=== PATIENT | female | born 1950 | race Caucasian/White ===

== ENCOUNTER → 2016-12-11 | Outpatient (CLI) | payer MEDICARE, OTHER ==
--- NOTE | 2016-12-12 09:08 | XR ---
EXAMINATION TYPE: XR chest 2V DATE OF EXAM: 12/11/2016 10:27 AM COMPARISON: 02/15/2015 TECHNIQUE: PA and lateral views submitted. HISTORY: Cough and history of smoking FINDINGS: The lungs are clear and there is no pneumothorax, pleural effusion, or focal pneumonia. Hyperinflat ion suggests COPD. Curvature of the spine with multilevel degenerative disc disease. Degenerative laurel nge of the spine noted. IMPRESSION: 1. No acute process. 2. Correlate for COPD.
== END | disposition home or self-care (01) ==
LOC: RADXRYALE 10:11
PROVIDERS: ATTEND Internal Medicine
DX: R05 Cough (principal)
CPT/HCPCS: 71020

== ENCOUNTER 2017-08-09 21:06 | Emergency (ER) | payer MEDICARE, OTHER ==
--- NOTE | 2017-08-09 21:29 | ED ---
Syncope HPI - General Chief Complaint: Syncope Stated Complaint: weakness,fall Time Seen by Provider: 08/09/17 21:28 Source: patient Mode of arrival: ambulatory Limitations: no limitations - History of Present Illness MD Complaint: almost passed out -: hour(s) Prodromal Symptoms: lightheaded Description of Event: incontinence Injuries Sustained Associated with Event: None Current Symptoms: lightheaded Context: getting out of bed (Getting up from the couch) Treatments Prior to Arrival: none - Related Data Previous Rx's Medication Instructions Recorded Levofloxacin [Levaquin] 500 mg PO DAILY #7 tab 08/09/17 Allergies Allergy/AdvReac Type Severity Reaction Status Date / Time Iodinated Contrast- Oral and Allergy Rash/Hives Verified 08/09/17 21:17 IV Dye Penicillins Allergy Rash/Hives Verified 08/09/17 21:17 Review of Systems ROS Statement: Those systems with pertinent positive or pertinent negative responses have been documented in the HPI. ROS Other: All systems not noted in ROS Statement are negative. Constitutional: Reports: weakness. Denies: fever, chills Eyes: Denies: vision change Respiratory: Denies: cough, dyspnea Cardiovascular: Reports: syncope. Denies: chest pain, palpitations, edema ( Near syncope) Gastrointestinal: Denies: abdominal pain, nausea, vomiting Genitourinary: Denies: dysuria, frequency Musculoskeletal: Denies: back pain Skin: Denies: rash, lesions Neurological: Reports: weakness. Denies: headache, numbness, paresthesias Past Medical History Additional Past Medical History / Comment(s): chronic back pain History of Any Multi-Drug Resistant Organisms: None Reported Past Surgical History: Cholecystectomy, Hernia Repair, Orthopedic Surgery Past Psychological History: No Psychological Hx Reported Smoking Status: Current every day smoker Past Alcohol Use History: None Reported Past Drug Use History: Marijuana General Exam Limitations: no limitations General appearance: alert, in no apparent distress Head exam: Present: atraumatic, normocephalic Eye exam: Present: normal appearance, PERRL, EOMI. Absent: scleral icterus, conjunctival injection, nystagmus ENT exam: Present: normal oropharynx Neck exam: Present: normal inspection, full ROM. Absent: tenderness Respiratory exam: Present: wheezes (Trace end expiratory wheeze). Absent: respiratory distress, rales, rhonchi, stridor Cardiovascular Exam: Present: regular rate, normal rhythm, normal heart sounds. Absent: systolic murmur, diastolic murmur, rubs, gallop GI/Abdominal exam: Present: soft. Absent: tenderness, guarding, rebound, mass Back exam: Present: normal inspection. Absent: CVA tenderness (R), CVA tenderness (L) Neurological exam: Present: alert, oriented X3. Absent: motor sensory deficit Skin exam: Present: warm, dry, intact, normal color. Absent: rash Course Vital Signs 08/09/17 08/09/17 21:13 22:59 Temperature 97.5 F L 97.6 F Pulse Rate 74 64 Respiratory 20 18 Rate Blood Pressure 122/58 114/59 O2 Sat by Pulse 96 98 Oximetry EKG Findings - EKG Results: EKG: interpreted by NADIA PEREZ, sinus rhythm (Rate 71 bpm), normal axis, normal QRS, normal ST/T, no acute changes - [place], Pacemaker, Normal: Normal tracing: normal tracing Medical Decision Making - Lab Data Result diagrams: 08/09/17 21:50 08/09/17 21:50 Lab Results 08/09/17 08/09/17 08/09/17 Range/Units 21:50 21:50 21:50 WBC 9.2 (3.8-10.6) k/uL RBC 3.68 L (3.80-5.40) m/uL Hgb 11.9 (11.4-16.0) gm/dL Hct 36.6 (34.0-46.0) % MCV 99.4 (80.0-100.0) fL MCH 32.3 (25.0-35.0) pg MCHC 32.4 (31.0-37.0) g/dL RDW 14.1 (11.5-15.5) % Plt Count 195 (150-450) k/uL Neutrophils % 89 % Lymphocytes % 6 % Monocytes % 5 % Eosinophils % 0 % Basophils % 0 % Neutrophils # 8.1 H (1.3-7.7) k/uL Lymphocytes # 0.5 L (1.0-4.8) k/uL Monocytes # 0.4 (0-1.0) k/uL Eosinophils # 0.0 (0-0.7) k/uL Basophils # 0.0 (0-0.2) k/uL PT (9.0-12.0) sec INR (<1.2) APTT (22.0-30.0) sec Sodium 139 (137-145) mmol/L Potassium 4.2 (3.5-5.1) mmol/L Chloride 107 (98-107) mmol/L Carbon Dioxide 22 (22-30) mmol/L Anion Gap 10 mmol/L BUN 24 H (7-17) mg/dL Creatinine 1.50 H (0.52-1.04) mg/dL Est GFR (MDRD) Af Amer 42 (>60 ml/min/1.73 sqM) Est GFR (MDRD) Non-Af 34 (>60 ml/min/1.73 sqM) Glucose 129 H (74-99) mg/dL Calcium 9.3 (8.4-10.2) mg/dL Total Bilirubin 0.4 (0.2-1.3) mg/dL AST 22 (14-36) U/L ALT 28 (9-52) U/L Alkaline Phosphatase 68 (38-126) U/L Total Creatine Kinase 56 (30-135) U/L CK-MB (CK-2) 1.4 (0.0-2.4) ng/mL CK-MB (CK-2) Rel Index 2.5 Troponin I <0.012 (0.000-0.034) ng/mL Total Protein 5.6 L (6.3-8.2) g/dL Albumin 3.5 (3.5-5.0) g/dL Urine Color Urine Appearance (Clear) Urine pH (5.0-8.0) Ur Specific [place] (1.001-1.035) Urine Protein (Negative) Urine Glucose (UA) (Negative) Urine Ketones (Negative) Urine Blood (Negative) Urine Nitrite (Negative) Urine Bilirubin (Negative) Urine Urobilinogen (<2.0) mg/dL Ur Leukocyte Esterase (Negative) Urine RBC (0-5) /hpf Urine WBC (0-5) /hpf Ur Squamous Epith Cells (0-4) /hpf Amorphous Sediment (None) /hpf Urine Bacteria (None) /hpf Hyaline Casts (0-2) /lpf Urine Mucus (None) /hpf 08/09/17 08/09/17 Range/Units 21:50 22:00 WBC (3.8-10.6) k/uL RBC (3.80-5.40) m/uL Hgb (11.4-16.0) gm/dL Hct (34.0-46.0) % MCV (80.0-100.0) fL MCH (25.0-35.0) pg MCHC (31.0-37.0) g/dL RDW (11.5-15.5) % Plt Count (150-450) k/uL Neutrophils % % Lymphocytes % % Monocytes % % Eosinophils % % Basophils % % Neutrophils # (1.3-7.7) k/uL Lymphocytes # (1.0-4.8) k/uL Monocytes # (0-1.0) k/uL Eosinophils # (0-0.7) k/uL Basophils # (0-0.2) k/uL PT 10.2 (9.0-12.0) sec INR 1.0 (<1.2) APTT 19.8 L (22.0-30.0) sec Sodium (137-145) mmol/L Potassium (3.5-5.1) mmol/L Chloride (98-107) mmol/L Carbon Dioxide (22-30) mmol/L Anion Gap mmol/L BUN (7-17) mg/dL Creatinine (0.52-1.04) mg/dL Est GFR (MDRD) Af Amer (>60 ml/min/1.73 sqM) Est GFR (MDRD) Non-Af (>60 ml/min/1.73 sqM) Glucose (74-99) mg/dL Calcium (8.4-10.2) mg/dL Total Bilirubin (0.2-1.3) mg/dL AST (14-36) U/L ALT (9-52) U/L Alkaline Phosphatase (38-126) U/L Total Creatine Kinase (30-135) U/L CK-MB (CK-2) (0.0-2.4) ng/mL CK-MB (CK-2) Rel Index Troponin I (0.000-0.034) ng/mL Total Protein (6.3-8.2) g/dL Albumin (3.5-5.0) g/dL Urine Color Yellow Urine Appearance Cloudy H (Clear) Urine pH 5.5 (5.0-8.0) Ur Specific [place] 1.024 (1.001-1.035) Urine Protein 1+ H (Negative) Urine Glucose (UA) Negative (Negative) Urine Ketones Trace H (Negative) Urine Blood Negative (Negative) Urine Nitrite Negative (Negative) Urine Bilirubin 3+ H (Negative) Urine Urobilinogen 4.0 (<2.0) mg/dL Ur Leukocyte Esterase Large H (Negative) Urine RBC 1 (0-5) /hpf Urine WBC 64 H (0-5) /hpf Ur Squamous Epith Cells 11 H (0-4) /hpf Amorphous Sediment Rare H (None) /hpf Urine Bacteria Occasional H (None) /hpf Hyaline Casts 263 H (0-2) /lpf Urine Mucus Few H (None) /hpf Disposition Clinical Impression: Urinary tract infection, Near syncope Disposition: HOME SELF-CARE Condition: Good Instructions: Urinary Tract Infection in Women (ED) Prescriptions: Levofloxacin [Levaquin] 500 mg PO DAILY #7 tab Referrals: Ramila Farr MD [Primary Care Provider] - 1-2 days
[2017-08-09 22:06] LABS: Basophils % (A) 0 %; CH 32.7; CHCM 33.1; Eosinophils % (A) 0 %; HCT 36.6 % (34.0-46.0); HGB 11.9 gm/dL (11.4-16.0); Luc # (Auto) 0.05; Luc % (Auto) 1; Lymphocytes # (A) 0.5 k/uL (1.0-4.8); Lymphocytes % (A) 6 %; MCH 32.3 pg (25.0-35.0); MCHC 32.4 g/dL (31.0-37.0); MCV 99.4 fL (80.0-100.0); Mean Platelet Volume 7.7; Monocytes # (A) 0.4 k/uL (0-1.0); Monocytes % (A) 5 %; Neutrophils # (A) 8.1 k/uL (1.3-7.7); Neutrophils % (A) 89 %; RBC 3.68 m/uL (3.80-5.40); RDW 14.1 % (11.5-15.5); WBC 9.2 k/uL (3.8-10.6); WBC (Perox) 9.82
--- NOTE | 2017-08-09 22:06 | XR ---
EXAMINATION TYPE: XR chest 1V portable DATE OF EXAM: 08/09/2017 COMPARISON: December 11, 2016 HISTORY: Syncope with low back pain TECHNIQUE: Single frontal view of the chest is obtained. FINDINGS: Hyperinflation is noted. There is no pneumothorax or pleural effusion. The cardiac silhoue tte is stable. IMPRESSION: No change in appearance of the chest.
[2017-08-09 22:16] LABS: Calcium 9.3 mg/dL (8.4-10.2); Potassium 4.2 mmol/L (3.5-5.1); Total Bilirubin 0.4 mg/dL (0.2-1.3); Total Protein 5.6 g/dL (6.3-8.2)
[2017-08-09 22:21] LABS: Prothrombin Time 10.2 sec (9.0-12.0)
[2017-08-09 22:24] LABS: Amorphous Sediment,Urine Rare /hpf; Appearance,Urine Cloudy (Clear); Bacteria,Urine Occasional /hpf; Bilirubin,Urine 3+ (Negative); Glucose,Urine (UA) Negative (Negative); Ketones,Urine Trace (Negative); Leukocyte Esterase,Urine Large (Negative); Mucus,Urine Few /hpf; Nitrite,Urine Negative (Negative); PH, Urine 5.5 (5.0-8.0); Particle Count 10982; Protein,Urine 1+ (Negative); RBC,Urine 1 /hpf (0-5); Specific Gravity,Urine 1.024 (1.001-1.035); Squamous Epithelial Cell,Urine 11 /hpf (0-4); UA Billing (MACRO vs. MICRO) MICRO; WBC,Urine 64 /hpf (0-5)
[2017-08-09 22:27] LABS: Creatine Kinase 56 U/L (30-135)
[2017-08-09 22:34] LABS: Partial Thromboplastin Time 19.8 sec (22.0-30.0)
[2017-08-09 22:40] LABS: Creatine Kinase MB 1.4 ng/mL (0.0-2.4); Troponin I <0.012 ng/mL (0.000-0.034)
[2017-08-09] MEDS ORDERED: LEVOFLOXACIN 750 MG TAB PO STA (23:15)
--- NOTE | 2017-08-09 23:26 | CT ---
EXAM: CT Head Without Intravenous Contrast CLINICAL HISTORY: Status post fall TECHNIQUE: Axial computed tomography images of the head/brain without intravenous contrast. CTDI is 57.40 mGy and DLP is 989.50 mGy-cm. This CT exam was performed using one or more of the following dose reduction techniques: automated exposure control, adjustment of the mA and/or kV according to patient size, and/or use of iterative reconstruction technique. COMPARISON: MRI of the brain dated 06/17/2016. FINDINGS: Brain: Patchy areas of decreased attenuation are seen in the bilateral periventricular white matter, likely presenting mild/moderate microangiopathy. Mild diffuse age-related cerebral atrophy is again seen. No hemorrhage. No edema. Ventricles: Unremarkable. No ventriculomegaly. Bones/joints: Unremarkable. No acute fracture. Soft tissues: Unremarkable. Sinuses: Mild mucosal thickening of the anterior ethmoid air cells is suggested, likely representing sinus disease. Mastoid air cells: Unremarkable as visualized. No mastoid effusion. IMPRESSION: No evidence of acute transcortical infarct or acute intracranial hemorrhage. Other findings, as above.
[2017-08-09] MEDS ORDERED: SODIUM CHLORIDE 0.9% 1,000 ML IV ONE (23:35)
[2017-08-10 00:51] VITALS: BP 153/67; PULSE 96; RESP 16; TEMP 97.1
== END 2017-08-10 00:49 | disposition home or self-care (01) ==
LOC: EC 21:06
DX: N39.0 Urinary tract infection, site not specified (principal); R55 Syncope and collapse; R42 Dizziness and giddiness; R06.2 Wheezing; F17.200 Nicotine dependence, unspecified, uncomplicated; Z88.0 Allergy status to penicillin; Z91.041 Radiographic dye allergy status; W19.XXXA Unspecified fall, initial encounter; Y93.89 Activity, other specified
CPT/HCPCS: 36415; 70450; 71010; 80053; 81001; 82550; 82553; 84484; 85025; 85610; 85730; 93005; 96360; 99284

== ENCOUNTER 2017-11-13 13:46 | Observation (INO) | payer MEDICARE, OTHER ==
--- NOTE | 2017-11-13 17:33 | ED ---
General Adult HPI - General Chief complaint: Seizure Stated complaint: seizure Time Seen by Provider: 11/13/17 17:12 Source: patient, RN notes reviewed Mode of arrival: ambulatory Limitations: no limitations - History of Present Illness Initial comments: The patient's a 67-year-old female who presents emergency room today with a chief complaint of possible seizure last night. Patient does admit that she was at her grandson's house. States that she got up to get a glass water. Related to the sink and fell down. She states that she was convulsing. She states that her son witnessed. He is at bedside stating that she was confused approximate half hour after this area patient does note that she's had a few of these episodes over the last several months. Son does admit that he witnessed a few the other episodes while she was at home. Patient does not that she talked the family doctor earlier today who advised come here the emergency room for further evaluation. She does admit to some chronic neck pain. Does admit to a headache located in the front today. Patient denies any other complaints or associated symptoms at this time. Patient denies any recent fever, chills, shortness of breath, chest pain, abdominal pain, nausea or vomiting, numbness or tingling, dysuria or hematuria, constipation or diarrhea, visual changes, or any other complaints. - Related Data Home Medications Medication Instructions Recorded Confirmed Etodolac [Lodine] 400 mg PO BID 11/13/17 11/13/17 Gabapentin [Neurontin] 600 mg PO TID 11/13/17 11/13/17 HYDROcodone/APAP 10-325MG [[place] 1 tab PO QID PRN 11/13/17 11/13/17 10-325] Allergies Allergy/AdvReac Type Severity Reaction Status Date / Time Iodinated Contrast- Oral and Allergy Rash/Hives Verified 11/13/17 17:23 IV Dye Penicillins Allergy Rash/Hives Verified 11/13/17 17:23 Review of Systems ROS Statement: Those systems with pertinent positive or pertinent negative responses have been documented in the HPI. ROS Other: All systems not noted in ROS Statement are negative. Past Medical History Additional Past Medical History / Comment(s): chronic back pain History of Any Multi-Drug Resistant Organisms: None Reported Past Surgical History: Cholecystectomy, Hernia Repair, Orthopedic Surgery Past Psychological History: No Psychological Hx Reported Smoking Status: Current every day smoker Past Alcohol Use History: None Reported Past Drug Use History: Marijuana General Exam - General Exam Comments Initial Comments: General: The patient is awake and alert, in no distress, and does not appear acutely ill. Eye: Pupils are equal, round and reactive to light, extra-ocular movements are intact. No nystagmus. There is normal conjunctiva bilaterally. No signs of icterus. Ears, nose, mouth and throat: There are moist mucous membranes and no oral lesions. Neck: The neck is supple, there is no tenderness or JVD. Cardiovascular: There is a regular rate and rhythm. No murmur, rub or gallop is appreciated. Respiratory: Lungs are clear to auscultation, respirations are non-labored, breath sounds are equal. No wheezes, stridor, rales, or rhonchi. Gastrointestinal: Soft, non-distended, non-tender abdomen without masses or organomegaly noted. There is no rebound or guarding present. No CVA tenderness. Bowel sounds are unremarkable. Musculoskeletal: Normal ROM, no tenderness. Strength 5/5. Sensation intact. Pulses equal bilaterally 2+. Neurological: A&O x 3. CN II-XII intact, There are no obvious motor or sensory deficits. Coordination appears grossly intact. Speech is normal. Normal finger nose testing. Normal rapid alternating movements. Strength 5/5 bilaterally both upper and lower extremities. Normal gait. Skin: Skin is warm and dry and no rashes or lesions are noted. Psychiatric: Cooperative, appropriate mood & affect, normal judgment. Limitations: no limitations Course Vital Signs 11/13/17 11/13/17 11/13/17 14:35 17:23 17:53 Temperature 97.9 F Pulse Rate 68 64 69 Respiratory 18 18 18 Rate Blood Pressure 196/93 197/84 182/88 O2 Sat by Pulse 97 98 96 Oximetry Medical Decision Making - Medical Decision Making Patient reexamined at this time shows no signs of distress. Patient's labs been reviewed. Patient's CT of the head negative. Patient's CT of the neck shows degenerative changes. CT does reveal masses in the apex bilaterally. Chest x-ray showed no abnormality. Results were discussed with the patient. Patient will be admitted for possible new-onset seizures with consult to neurology and also counseled to pulmonology for lung mass. Please discuss with Laura Centenoch nurse practitioner will admit for Dr. Cardona. - Lab Data Result diagrams: 11/13/17 17:32 11/13/17 17:32 Lab Results 11/13/17 11/13/17 11/13/17 Range/Units 17:32 17:32 17:32 WBC 5.1 (3.8-10.6) k/uL RBC 4.39 (3.80-5.40) m/uL Hgb 13.6 (11.4-16.0) gm/dL Hct 42.4 (34.0-46.0) % MCV 96.5 (80.0-100.0) fL MCH 31.0 (25.0-35.0) pg MCHC 32.1 (31.0-37.0) g/dL RDW 14.0 (11.5-15.5) % Plt Count 202 (150-450) k/uL Neutrophils % 71 % Lymphocytes % 21 % Monocytes % 5 % Eosinophils % 0 % Basophils % 0 % Neutrophils # 3.6 (1.3-7.7) k/uL Lymphocytes # 1.0 (1.0-4.8) k/uL Monocytes # 0.3 (0-1.0) k/uL Eosinophils # 0.0 (0-0.7) k/uL Basophils # 0.0 (0-0.2) k/uL PT (9.0-12.0) sec INR (<1.2) APTT (22.0-30.0) sec Sodium 142 (137-145) mmol/L Potassium 3.8 (3.5-5.1) mmol/L Chloride 107 (98-107) mmol/L Carbon Dioxide 28 (22-30) mmol/L Anion Gap 7 mmol/L BUN 20 H (7-17) mg/dL Creatinine 0.76 (0.52-1.04) mg/dL Est GFR (MDRD) Af Amer >60 (>60 ml/min/1.73 sqM) Est GFR (MDRD) Non-Af >60 (>60 ml/min/1.73 sqM) Glucose 81 (74-99) mg/dL Calcium 9.5 (8.4-10.2) mg/dL Total Bilirubin 0.7 (0.2-1.3) mg/dL AST 29 (14-36) U/L ALT 31 (9-52) U/L Alkaline Phosphatase 74 (38-126) U/L Total Creatine Kinase 76 (30-135) U/L CK-MB (CK-2) 1.9 (0.0-2.4) ng/mL CK-MB (CK-2) Rel Index 2.5 Troponin I <0.012 (0.000-0.034) ng/mL Total Protein 6.4 (6.3-8.2) g/dL Albumin 4.2 (3.5-5.0) g/dL Urine Color Urine Appearance (Clear) Urine pH (5.0-8.0) Ur Specific [place] (1.001-1.035) Urine Protein (Negative) Urine Glucose (UA) (Negative) Urine Ketones (Negative) Urine Blood (Negative) Urine Nitrite (Negative) Urine Bilirubin (Negative) Urine Urobilinogen (<2.0) mg/dL Ur Leukocyte Esterase (Negative) 11/13/17 11/13/17 Range/Units 17:32 17:32 WBC (3.8-10.6) k/uL RBC (3.80-5.40) m/uL Hgb (11.4-16.0) gm/dL Hct (34.0-46.0) % MCV (80.0-100.0) fL MCH (25.0-35.0) pg MCHC (31.0-37.0) g/dL RDW (11.5-15.5) % Plt Count (150-450) k/uL Neutrophils % % Lymphocytes % % Monocytes % % Eosinophils % % Basophils % % Neutrophils # (1.3-7.7) k/uL Lymphocytes # (1.0-4.8) k/uL Monocytes # (0-1.0) k/uL Eosinophils # (0-0.7) k/uL Basophils # (0-0.2) k/uL PT 9.5 (9.0-12.0) sec INR 1.0 (<1.2) APTT 22.2 (22.0-30.0) sec Sodium (137-145) mmol/L Potassium (3.5-5.1) mmol/L Chloride (98-107) mmol/L Carbon Dioxide (22-30) mmol/L Anion Gap mmol/L BUN (7-17) mg/dL Creatinine (0.52-1.04) mg/dL Est GFR (MDRD) Af Amer (>60 ml/min/1.73 sqM) Est GFR (MDRD) Non-Af (>60 ml/min/1.73 sqM) Glucose (74-99) mg/dL Calcium (8.4-10.2) mg/dL Total Bilirubin (0.2-1.3) mg/dL AST (14-36) U/L ALT (9-52) U/L Alkaline Phosphatase (38-126) U/L Total Creatine Kinase (30-135) U/L CK-MB (CK-2) (0.0-2.4) ng/mL CK-MB (CK-2) Rel Index Troponin I (0.000-0.034) ng/mL Total Protein (6.3-8.2) g/dL Albumin (3.5-5.0) g/dL Urine Color Light Yellow Urine Appearance Clear (Clear) Urine pH 7.5 (5.0-8.0) Ur Specific [place] 1.009 (1.001-1.035) Urine Protein Negative (Negative) Urine Glucose (UA) Negative (Negative) Urine Ketones Negative (Negative) Urine Blood Negative (Negative) Urine Nitrite Negative (Negative) Urine Bilirubin 1+ H (Negative) Urine Urobilinogen <2.0 (<2.0) mg/dL Ur Leukocyte Esterase Negative (Negative) Disposition Clinical Impression: New onset seizure, Lung mass Disposition: ADMITTED IP TO THIS [facility] Condition: Stable Referrals: Ramila Farr MD [Primary Care Provider] - 1-2 days Time of Disposition: 19:11
[2017-11-13] MEDS ORDERED: hydrALAZINE HCL 20 MG/ML 1 ML VIAL IVP STA (17:39)
[2017-11-13 17:54] LABS: Appearance,Urine Clear (Clear); Basophils % (A) 0 %; Bilirubin,Urine 1+ (Negative); Blood,Urine Negative (Negative); Color,Urine Light Yellow; Eosinophils % (A) 0 %; Glucose,Urine (UA) Negative (Negative); HCT 42.4 % (34.0-46.0); HGB 13.6 gm/dL (11.4-16.0); Ketones,Urine Negative (Negative); Leukocyte Esterase,Urine Negative (Negative); Lymphocytes % (A) 21 %; MCHC 32.1 g/dL (31.0-37.0); MCV 96.5 fL (80.0-100.0); Mean Platelet Volume 7.8; Monocytes # (A) 0.3 k/uL (0-1.0); Monocytes % (A) 5 %; Neutrophils # (A) 3.6 k/uL (1.3-7.7); Neutrophils % (A) 71 %; Nitrite,Urine Negative (Negative); PH, Urine 7.5 (5.0-8.0); Platelet Count 202 k/uL (150-450); Protein,Urine Negative (Negative); RBC 4.39 m/uL (3.80-5.40); Specific Gravity,Urine 1.009 (1.001-1.035); Urobilinogen,Urine <2.0 mg/dL (<2.0); WBC 5.1 k/uL (3.8-10.6)
[2017-11-13 18:03] LABS: ALT 31 U/L (9-52); AST 29 U/L (14-36); Albumin 4.2 g/dL (3.5-5.0); Alkaline Phosphatase 74 U/L (38-126); Anion Gap 7 mmol/L; Blood Urea Nitrogen 20 mg/dL (7-17); Calcium 9.5 mg/dL (8.4-10.2); Carbon Dioxide 28 mmol/L (22-30); Chloride 107 mmol/L (98-107); Glucose 81 mg/dL (74-99); Potassium 3.8 mmol/L (3.5-5.1); Sodium 142 mmol/L (137-145); Total Bilirubin 0.7 mg/dL (0.2-1.3); Total Protein 6.4 g/dL (6.3-8.2)
[2017-11-13 18:15] LABS: Creatine Kinase 76 U/L (30-135)
[2017-11-13 18:21] LABS: Partial Thromboplastin Time 22.2 sec (22.0-30.0); Prothrombin Time 9.5 sec (9.0-12.0)
[2017-11-13 18:27] LABS: Creatine Kinase MB 1.9 ng/mL (0.0-2.4); Troponin I <0.012 ng/mL (0.000-0.034)
--- NOTE | 2017-11-13 18:47 | CT ---
EXAMINATION TYPE: CT brain roberta singh DATE OF EXAM: 11/13/2017 COMPARISON: Previous CT scan of the brain dated 08/09/2017 HISTORY: Seizure yesterday. CT DLP: 1296.4 mGycm Automated exposure control for dose reduction was used. TECHNIQUE: CT scan of the head and cervical spine are performed without contrast. FINDINGS: BRAIN: There are changes of sulcal prominence and ventriculomegaly, compatible with atrophic change. There is diffuse periventricular white matter lucency, compatible with chronic ischemic change. There is no acute focal lesion, mass effect or midline shift identified. I do not see evidence of intracra nial blood. Visualized portions of the paranasal sinuses and mastoids are clear. IMPRESSION: 1. NO ACUTE INTRACRANIAL ABNORMALITY. 2. MILD ATROPHIC CHANGE. 3. CHRONIC WHITE MATTER ISCHEMIC CHANGE. CERVICAL SPINE: There is masslike consolidation in both apices. There are diffuse emphysematous sinclair es throughout the visualized portions of the lungs. Prevertebral soft tissues are normal. There is a mild reversal of the normal cervical lordosis. There is a grade 1 degenerative listhesis o f C2 on C3. Alignment is otherwise maintained. Atlantoaxial relationships are normal. There is diffuse degenerative disc disease and hypertrophic spondylosis with relative sparing of C2-3 . There is diffuse, mild uncovertebral joint disease. There is facet arthropathy on the left at C5-4 and C2-3. No definite protrusion is seen. No fracture is seen. IMPRESSION: 1. NO ACUTE OSSEOUS LESION. 2. MODERATE DEGENERATIVE CHANGE.. 3. DIFFUSE EMPHYSEMATOUS CHANGE. 4. MASSLIKE CONSOLIDATION IN BOTH LUNG APICES. FURTHER ASSESSMENT WITH PET/CT MAY BE WORTHWHILE.
--- NOTE | 2017-11-13 18:49 | XR ---
EXAMINATION TYPE: XR chest 2V DATE OF EXAM: 11/13/2017 HISTORY: Seizure. REFERENCE: Previous study dated 08/09/2017. FINDINGS: Lung volumes are prominent. The lungs are clear. Pleural space are clear. The heart is not enlarged. IMPRESSION: COPD.
[2017-11-13] MEDS ORDERED: LORazepam 2 MG/ML INJ IV PRN (19:12)
[2017-11-13] MEDS ORDERED: HYDROmorphone 2 MG/ML 1 ML SYRINGE IVP PRN (19:12)
[2017-11-13] MEDS ORDERED: NALOXONE 0.4 MG/ML 1 ML VIAL IV PRN (19:12)
[2017-11-13] MEDS ORDERED: ACETAMINOPHEN TAB 325 MG TAB PO PRN (19:12)
[2017-11-13] MEDS ORDERED: HYDROcodone/APAP 5-325MG 1 EACH TAB PO PRN (19:12)
[2017-11-13] MEDS ORDERED: hydrALAZINE HCL 20 MG/ML 1 ML VIAL IVP PRN (19:14)
[2017-11-13] MEDS: HYDROcodone/APAP 10-325MG 1 EACH TAB PO PRN (19:29)
[2017-11-13] MEDS: GABAPENTIN 300 MG CAP PO SCH (20:48)
[2017-11-13] MEDS: PHENYTOIN SODIUM INJ 1,000 MG in SODIUM CHLORIDE 0.9% 100 ML IVPB STA (22:22)
--- NOTE | 2017-11-13 23:45 | P.CNNES ---
History of Present Illness Consult date: 11/13/17 Reason for Consult: Patient admitted for possible seizure at home. History of Present Illness: This patient is a 67-year-old female who was advised to come to the emergency room after she contacted her primary care physician Dr. Farr. Apparently yesterday evening the patient was at her grandson's house and was in the kitchen and was getting a glass of water when she apparently collapsed to the floor. Her grandson noted her going into seizure activity which she states lasted about 3 minutes in duration. She appeared to be confused for about a half-hour following this event. On further questioning the patient states she has had similar episodes occurring over the past 7 months. She was advised to come to the emergency room today for further evaluation. She was seen in the ER by physician assistant executive housekeeper Troy Brooks. A computed tomography scan of the brain was ordered which revealed no acute intracranial abnormality with mild atrophic changes. Chronic white matter ischemia was noted. Computed tomography scan of the cervical spine revealed no acute osseous lesion. Moderate degenerative changes were noted. Diffuse emphysmatous changes were noted. Masslike consolidation in both lung apices was noted. Further assessment with PET scan or computed tomography scan was recommended. The patient states she has noticed a 10 pound weight loss over the last 3 months. She states that her other events were similar but this was the most dramatic in that she had no memory and was confused following the event. She was recommended a follow-up with a neurologist for further evaluation of these previous events. She did not follow-up as recommended by her primary care physician. Her clinical history is suggesting possibility of underlying seizure disorder. We have recommended the patient to be started on anticonvulsant therapy today. We would also recommend an MRI of the brain with and without gadolinium to rule out possibility of mass lesion in the brain. She will need further workup for possible mass lesion in the lungs. We will start her on Dilantin monotherapy and will check her Dilantin blood levels tomorrow and adjust her dose as needed. We have discussed all of these findings today in detail with the patient. We will continue close neurological follow-up at this patient and give further recommendations depending on her other test results. Would recommend seizure precautions for this patient. Her overall prognosis at this time remains guarded. Review of Systems Constitutional: Denies chills, Denies fever Eyes: denies blurred vision, denies pain Ears, nose, mouth and throat: Denies headache, Denies sore throat Cardiovascular: Denies chest pain, Denies shortness of breath Respiratory: Denies cough Gastrointestinal: Denies abdominal pain, Denies diarrhea, Denies nausea, Denies vomiting Genitourinary: Denies dysuria, Denies hematuria Musculoskeletal: Denies myalgias Integumentary: Denies pruritus, Denies rash Neurological: Reports confusion, Reports convulsions, Reports seizures, Denies numbness, Denies weakness Psychiatric: Denies anxiety, Denies depression Endocrine: Denies fatigue, Denies weight change Past Medical History Additional Past Medical History / Comment(s): chronic back pain History of Any Multi-Drug Resistant Organisms: None Reported Past Surgical History: Cholecystectomy, Hernia Repair, Orthopedic Surgery Past Psychological History: No Psychological Hx Reported Smoking Status: Current every day smoker Past Alcohol Use History: None Reported Past Drug Use History: Marijuana Medications and Allergies Home Medications Medication Instructions Recorded Confirmed Type Etodolac [Lodine] 400 mg PO BID 11/13/17 11/13/17 History Gabapentin [Neurontin] 600 mg PO TID 11/13/17 11/13/17 History HYDROcodone/APAP 10-325MG [[place] 1 tab PO QID PRN 11/13/17 11/13/17 History 10-325] Allergies Allergy/AdvReac Type Severity Reaction Status Date / Time Iodinated Contrast- Oral and Allergy Rash/Hives Verified 11/13/17 17:23 IV Dye Penicillins Allergy Rash/Hives Verified 11/13/17 17:23 Physical Examination - Vital Signs Vital Signs: Vital Signs Temp Pulse Resp BP Pulse Ox 11/13/17 19:20 82 18 180/84 97 11/13/17 17:53 69 18 182/88 96 11/13/17 17:23 64 18 197/84 98 11/13/17 14:35 97.9 F 68 18 196/93 97 Intake and Output 11/13/17 11/13/17 11/13/17 06:59 14:59 22:59 Other: Weight 46.72 kg Patient Weight 11/14/17 06:59 Weight 46.72 kg - Constitutional General appearance: average body habitus, cooperative - EENT EENT: PERRL, mucous membranes moist - Respiratory Respiratory: lungs clear, normal breath sounds - Cardiovascular Cardiovascular: regular rate, normal S1, normal S2 Extremities: no peripheral edema bilaterally - Gastrointestinal Gastrointestinal: normoactive bowel sounds - Integumentary Integumentary: normal - Neurologic Cranial nerve examination: PERRL, EOMI, VFF, V1/V2/V3 grossly intact, face symmetric, intact gag reflex, intact corneal reflex, normal palatal elevation Speech examination: intact Sensorimotor examination: intact Motor examination - right side: 4/5: biceps, triceps, wrist flexion, wrist extension, leveler helper, hip flexors, knee extensors, dorsiflexion, toe extension (EHL) , plantarflexion Motor examination - left side: 4/5: biceps, triceps, wrist flexion, wrist extension, leveler helper, hip flexors, knee extensors, dorsiflexion, toe extension (EHL) , plantarflexion Detailed sensory examination: intact Reflex and gait examination: intact Reflexes: 1+: ankle, bicep, knee, tricep - Musculoskeletal Musculoskeletal: no pain - Psychiatric Psychiatric: mood/affect appropriate, cooperative Results - Laboratory Findings CBC and BMP: 11/13/17 17:32 11/13/17 17:32 Abnormal Lab Findings: Abnormal Labs 11/13/17 11/13/17 17:32 17:32 BUN 20 H Urine Bilirubin 1+ H Assessment and Plan (1) Lung mass Current Visit: Yes Status: Acute Code(s): R91.8 - OTHER NONSPECIFIC ABNORMAL FINDING OF LUNG FIELD SNOMED Code(s): 481723341 (2) New onset seizure Current Visit: Yes Status: Acute Code(s): R56.9 - UNSPECIFIED CONVULSIONS SNOMED Code(s): 70455681 Plan: This patient is a 67-year-old female was admitted to hospital after possibly having a generalized tonic clonic seizure at home yesterday evening. She was advised to come to the emergency room today by her primary care physician. Patient apparently had a witnessed seizure noted by her grandson is lasting 3 minutes in duration. She did not have any bowel or bladder incontinence but was postictal following this event. We are recommending to have this patient began on anticonvulsant therapy tonight. We would recommend an MRI of the brain with and without gadolinium to rule out intracranial mass lesion. Patient has evidence suggesting bilateral lung mass. This to be further evaluated by pulmonary medicine. We will start the patient on Dilantin and we' ll check her Dilantin blood levels tomorrow morning. She is to have seizure precautions. The patient apparently has had several similar episodes over the last 7 months but this was the most severe. We will continue close neurological follow-up for this patient. We will await further recommendations from pulmonary consultation as well. This patient's overall prognosis at this time remains guarded. Time with Patient: Greater than 30
[2017-11-14] MEDS: HYDROcodone/APAP 10-325MG 1 EACH TAB PO PRN ×2 (05:29→15:33)
[2017-11-14] MEDS: PHENYTOIN SODIUM INJ 1,000 MG in SODIUM CHLORIDE 0.9% 100 ML IVPB STA (08:06)
[2017-11-14] MEDS: GABAPENTIN 300 MG CAP PO SCH ×3 (08:36→21:01)
[2017-11-14] MEDS: PHENYTOIN SODIUM EXTENDED 100 MG CAP PO SCH ×3 (08:36→21:01)
[2017-11-14 08:39] LABS: Basophils % (A) 0 %; Eosinophils % (A) 1 %; HCT 41.2 % (34.0-46.0); HGB 12.9 gm/dL (11.4-16.0); Lymphocytes # (A) 1.1 k/uL (1.0-4.8); Lymphocytes % (A) 20 %; MCH 30.7 pg (25.0-35.0); MCHC 31.4 g/dL (31.0-37.0); MCV 97.7 fL (80.0-100.0); Mean Platelet Volume 7.9; Monocytes # (A) 0.4 k/uL (0-1.0); Monocytes % (A) 8 %; Neutrophils # (A) 3.7 k/uL (1.3-7.7); Neutrophils % (A) 70 %; Platelet Count 208 k/uL (150-450); RBC 4.21 m/uL (3.80-5.40); RDW 13.8 % (11.5-15.5); WBC 5.3 k/uL (3.8-10.6)
[2017-11-14 08:56] LABS: ALT 28 U/L (9-52); AST 27 U/L (14-36); Albumin 3.7 g/dL (3.5-5.0); Alkaline Phosphatase 57 U/L (38-126); Anion Gap 11 mmol/L; Blood Urea Nitrogen 16 mg/dL (7-17); Calcium 9.6 mg/dL (8.4-10.2); Carbon Dioxide 24 mmol/L (22-30); Chloride 108 mmol/L (98-107); Glucose 89 mg/dL (74-99); Potassium 4.2 mmol/L (3.5-5.1); Sodium 143 mmol/L (137-145); Total Bilirubin 0.7 mg/dL (0.2-1.3); Total Protein 5.8 g/dL (6.3-8.2)
[2017-11-14 09:53] VITALS: BMI 16.6
[2017-11-14 10:18] LABS: Phenytoin (Dilantin) <3.0 ug/mL
--- NOTE | 2017-11-14 10:37 | MR ---
EXAMINATION TYPE: MR brain wo/w con DATE OF EXAM: 11/14/2017 COMPARISON: 06/17/2016 HISTORY: Patient with new onset seizures TECHNIQUE: Multiplanar, multisequence images of the brain and brainstem is performed without and with IV contras t, utilizing 4.5 mL intravenous Gadavist . FINDINGS: Diffusion weighted images demonstrate no evidence of a recent infarct or other diffusion ab normality. [id number] generalized degenerative change appears stable. Craniocervical junction. Soft tissues there is no evidence of cerebellopontine angle mass. Intraorbit al structures have a normal appearance. Artifact within the reg noted. Additional areas of abnormal signal are stable and most typical remote microvascular ischemia. Areas of abnormal signal involving the external capsule greater on the left are suggestive of remote ischemia. Areas of abnormal signal are stable suggestive there are numerous focal as well as confluent areas of abnormal signal within the white matter bilaterally totally in number greater than 40. Findings are stable and nonspecific but most typical of remote microvascular ischemia. IMPRESSION: 1. Stable degenerative and nonspecific white matter changes most typical of remote microvascular isch emia.
[2017-11-14] MEDS ORDERED: PHENYTOIN SODIUM INJ 1,000 MG in SODIUM CHLORIDE 0.9% 100 ML IVPB STA (11:48)
[2017-11-14 12:06] LABS: Cholesterol 220 mg/dL (<200); HDL Cholesterol 82 mg/dL (40-60); LDL Cholesterol,Calculated 126 mg/dL (0-99); Triglycerides 60 mg/dL (<150)
--- NOTE | 2017-11-14 12:30 | P.HPIM ---
History of Present Illness The patient's a 67-year-old female who presents emergency room today with a chief complaint of possible seizure last night. P States that she got up to get a glass water. Related to the sink and fell down. She apparently was convulsing and She was confused for about half an hour as per the ER physician and the neurology note but patient says she is confused only for a minute, patient had similar episode 3 days ago , I do not have any family members available at this point of time s Patient denies any other complaints or associated symptoms at this time. Patient denies any recent fever, chills, shortness of breath, chest pain, abdominal pain, nausea or vomiting, numbness or tingling, dysuria or hematuria, constipation or diarrhea, visual changes, or any other complaints. Neurology evaluated the patient brain MRI was done which was essentially negative patient was loaded with Dilantin and patient will see if precautions. Patient the incidentally found to have some nodular lesions on the chest x-ray patient is a smoker CT of the chest was obtained and the immunology was consulted be evaluated the patient. His headache is a concern that patient may have had a syncope I'm opting echo cardiac exam counseling cardiology as she had couple episodes of those and her EKG is essentially within normal limits and showed sinus rhythm. Review of Systems REVIEW OF SYSTEMS: CONSTITUTIONAL: No fever, no malaise, no fatigue. HEENT: No recent visual problems or hearing problems. Denied any sore throat. CARDIOVASCULAR: No chest pain, orthopnea, PND, no palpitations, PULMONARY: No shortness of breath, no cough, no hemoptysis. GASTROINTESTINAL: No diarrhea, no nausea, no vomiting, no abdominal pain. Normoactive bowel sounds. NEUROLOGICAL: No headaches, no weakness, no numbness. HEMATOLOGICAL: Denies any bleeding or petechiae. GENITOURINARY: Denies any burning micturition, frequency, or urgency. MUSCULOSKELETAL/RHEUMATOLOGICAL: Denies any joint pain, swelling, or any muscle pain. ENDOCRINE: Denies any polyuria or polydipsia. The rest of the 14-point review of systems is negative. Past Medical History Additional Past Medical History / Comment(s): chronic back pain History of Any Multi-Drug Resistant Organisms: None Reported Past Surgical History: Cholecystectomy, Hernia Repair, Orthopedic Surgery Past Psychological History: No Psychological Hx Reported Smoking Status: Current every day smoker Past Alcohol Use History: None Reported Past Drug Use History: Marijuana Medications and Allergies Home Medications Medication Instructions Recorded Confirmed Type Etodolac [Lodine] 400 mg PO BID 11/13/17 11/13/17 History Gabapentin [Neurontin] 600 mg PO TID 11/13/17 11/13/17 History HYDROcodone/APAP 10-325MG [[place] 1 tab PO QID PRN 11/13/17 11/13/17 History 10-325] Allergies Allergy/AdvReac Type Severity Reaction Status Date / Time Iodinated Contrast- Oral and Allergy Rash/Hives Verified 11/13/17 17:23 IV Dye Penicillins Allergy Rash/Hives Verified 11/13/17 17:23 Physical Exam Vitals: Vital Signs Temp Pulse Pulse Resp BP BP Pulse Ox 11/14/17 07:00 97.3 F L 69 16 155/87 98 11/13/17 23:53 98.0 F 72 18 147/76 97 11/13/17 19:20 82 18 180/84 97 11/13/17 17:53 69 18 182/88 96 11/13/17 17:23 64 18 197/84 98 11/13/17 14:35 97.9 F 68 18 196/93 97 Intake and Output 11/13/17 11/14/17 11/14/17 22:59 06:59 14:59 Other: # Voids 2 Weight 46.72 kg Patient Weight 11/15/17 06:59 Weight 46.72 kg PHYSICAL EXAMINATION: GENERAL: The patient is alert and oriented x3, not in any acute distress. Well developed, well nourished. HEENT: Pupils are round and equally reacting to light. EOMI. No scleral icterus. No conjunctival pallor. Normocephalic, atraumatic. No pharyngeal erythema. No thyromegaly. CARDIOVASCULAR: S1 and S2 present. No murmurs, rubs, or gallops. PULMONARY: Chest is clear to auscultation, no wheezing or crackles. ABDOMEN: Soft, nontender, nondistended, normoactive bowel sounds. No palpable organomegaly. MUSCULOSKELETAL: No joint swelling or deformity. EXTREMITIES: No cyanosis, clubbing, or pedal edema. NEUROLOGICAL: Gross neurological examination did not reveal any focal deficits. SKIN: No rashes. Results CBC & Chem 7: 11/14/17 07:51 11/14/17 07:51 Labs: Abnormal Lab Results - Last 24 Hours (Table) 11/13/17 11/13/17 11/14/17 Range/Units 17:32 17:32 07:51 Chloride 108 H (98-107) mmol/L BUN 20 H (7-17) mg/dL Total Protein 5.8 L (6.3-8.2) g/dL Cholesterol (<200) mg/dL LDL Cholesterol, Calc (0-99) mg/dL HDL Cholesterol (40-60) mg/dL Urine Bilirubin 1+ H (Negative) 11/14/17 Range/Units 07:51 Chloride (98-107) mmol/L BUN (7-17) mg/dL Total Protein (6.3-8.2) g/dL Cholesterol 220 H (<200) mg/dL LDL Cholesterol, Calc 126 H (0-99) mg/dL HDL Cholesterol 82 H (40-60) mg/dL Urine Bilirubin (Negative) Thrombosis Risk Factor Assmnt - Choose All That Apply Any of the Below Risk Factors Present?: No Other Risk Factors: Yes Each Risk Factor Represents 2 Points: Age 61-74 years Thrombosis Risk Factor Assessment Total Risk Factor Score: 2 Thrombosis Risk Factor Assessment Level: Low Risk Assessment and Plan Plan: -Possible syncope are a seizure: MRI of the brain as mentioned above neurology was consulted patient is on phenytoin and cardiology will be consulted echocardiogram will be obtained. -Nicotine abuse: Counseling was provided -Pulmonary nodules, counseling that patient is a smoker patient had a CAT scan of the chest may need a repeat CAT scan as an outpatient pulmonary was consulted. -Nicotine abuse: Counseling was provided
[2017-11-14] MEDS ORDERED: RX INFO: IV CONTRAST WAS GIVEN 1 EACH MISC MISCELLANE PRN (14:38)
--- NOTE | 2017-11-14 15:59 | P.CNPUL ---
History of Present Illness Consult date: 11/14/17 Requesting physician: Nyla Cardona Reason for consult: abnormal CXR/CT Chief complaint: Seizures, masslike consolidation in bilateral apices of the lungs History of present illness: Ama is a 67-year-old white female patient of Dr. Farr, that presented to the emergency department on 11/13/2017 at 1346 after having a seizure episode last night. She was at her grandson's house, was standing at the sink getting at glass of water. She states she felt very strange just prior to the seizure, she fell down, she could hear her son, she did not lose consciousness, and she started having myoclonic shaking and tightening up all over, upper and lower extremities. This lasted 3 minutes and afterward the patient was very tired, groggy, and all of her muscles were hurting. Her son witnessed the seizure. The patient and her family report patient having fainting episodes, falling, increased forgetfulness for the last 8 months. She had seen Dr. Siena Brown in consultation in regards to this problem, however when loss of driving privileges was mentioned due to the possible seizure disorder, patient walked out of the office and never went back again for follow-up. CT brain and cervical spine in the emergency room on 11/13/2017 showed no acute intracranial abnormality, mild atrophic change, and chronic white matter ischemic change. Cervical spine CT showed masslike consolidation in both apices, and diffuse emphysematous changes throughout the visualized portion of the lungs. We are consulted in regards to the biapical masslike consolidation. Looking back at the previous records patient had a chest CT from 02/23/2015, which showed biapical scarring, at that time a 2 year follow-up was recommended to exclude malignancy. There was underlying emphysematous changes and hyperinflation compatible with COPD noted. But no pulmonary nodule or mass was detected. Patient is a current smoker, currently down to half a pack a day, but carries a [id number] smoking history. Was seen in the lung specialist before, is not on any oxygen, not on any inhalers, denies any shortness of breath or activity limitation due to her exercise capacity on a regular basis. She states this CT chest from [address] Farr in regards to persistent lung congestion, and coughing at that time. Currently she denies any respiratory problems, dyspnea, chest congestion or wheezing. Denies any chest pain, hemoptysis. She is afebrile, signs are stable, she is on room air at 96%. Chest x-ray from 11/13/2017 showed prominent lung volumes, but the lungs are clear. Review of Systems All systems: negative Constitutional: Denies chills, Denies fever Eyes: denies blurred vision, denies pain Ears, nose, mouth and throat: Denies headache, Denies sore throat Cardiovascular: Denies chest pain, Denies shortness of breath Respiratory: Denies cough Gastrointestinal: Denies abdominal pain, Denies diarrhea, Denies nausea, Denies vomiting Genitourinary: Denies dysuria, Denies hematuria Musculoskeletal: Denies myalgias Integumentary: Denies pruritus, Denies rash Neurological: Denies numbness, Denies weakness Psychiatric: Denies anxiety, Denies depression Endocrine: Denies fatigue, Denies weight change Past Medical History Additional Past Medical History / Comment(s): chronic back pain History of Any Multi-Drug Resistant Organisms: None Reported Past Surgical History: Cholecystectomy, Hernia Repair, Orthopedic Surgery Past Psychological History: No Psychological Hx Reported Smoking Status: Current every day smoker Past Alcohol Use History: None Reported Past Drug Use History: Marijuana Medications and Allergies Home Medications Medication Instructions Recorded Confirmed Type Etodolac [Lodine] 400 mg PO BID 11/13/17 11/13/17 History Gabapentin [Neurontin] 600 mg PO TID 11/13/17 11/13/17 History HYDROcodone/APAP 10-325MG [[place] 1 tab PO QID PRN 11/13/17 11/13/17 History 10-325] Allergies Allergy/AdvReac Type Severity Reaction Status Date / Time Iodinated Contrast- Oral and Allergy Rash/Hives Verified 11/13/17 17:23 IV Dye Penicillins Allergy Rash/Hives Verified 11/13/17 17:23 Physical Exam Vitals: Vital Signs Temp Pulse Pulse Resp BP BP Pulse Ox 11/14/17 15:00 97.3 F L 69 16 157/75 96 11/14/17 07:00 97.3 F L 69 16 155/87 98 11/13/17 23:53 98.0 F 72 18 147/76 97 11/13/17 19:20 82 18 180/84 97 11/13/17 17:53 69 18 182/88 96 11/13/17 17:23 64 18 197/84 98 Intake and Output 11/14/17 11/14/17 11/14/17 06:59 14:59 22:59 Intake Total 965 Balance 965 Intake: Oral 965 Other: # Voids 2 3 Weight 46.72 kg Patient Weight 11/15/17 06:59 Weight 46.72 kg GENERAL EXAM: Alert, pleasant 67-year-old thin white female, comfortable in no apparent distress. HEAD: Normocephalic/atraumatic. EYES: Normal reaction of pupils, equal size. Conjunctiva pink, sclera white. NOSE: Clear with pink turbinates. THROAT: No erythema or exudates. NECK: No masses, no JVD, no thyroid enlargement, no adenopathy. CHEST: No chest wall deformity. Symmetrical expansion. LUNGS: Equal air entry with no crackles, wheeze, rhonchi or dullness. CVS: Regular rate and rhythm, normal S1 and S2, no gallops, no murmurs, no rubs ABDOMEN: Soft, nontender. No hepatosplenomegaly, normal bowel sounds, no guarding or rigidity. EXTREMITIES: No clubbing, no edema, no cyanosis, 2+ pulses and upper and lower extremities. MUSCULOSKELETAL: Muscle strength and tone normal. SPINE: No scoliosis or deformity SKIN: No rashes CENTRAL NERVOUS SYSTEM: Alert and oriented -3. No focal deficits, tone is normal in all 4 extremities. PSYCHIATRIC: Alert and oriented -3. Appropriate affect. Intact judgment and insight. Results - Laboratory Findings CBC and BMP: 11/14/17 07:51 11/14/17 07:51 PT/INR, D-dimer PT 9.5 sec (9.0-12.0) 11/13/17 17:32 INR 1.0 (<1.2) 11/13/17 17:32 Abnormal lab findings: Abnormal Labs 11/13/17 11/13/17 11/14/17 17:32 17:32 07:51 Chloride 108 H BUN 20 H Total Protein 5.8 L Cholesterol LDL Cholesterol, Calc HDL Cholesterol Urine Bilirubin 1+ H 11/14/17 07:51 Chloride BUN Total Protein Cholesterol 220 H LDL Cholesterol, Calc 126 H HDL Cholesterol 82 H Urine Bilirubin - Diagnostic Findings Chest x-ray: report reviewed CT scan - chest: report reviewed Additional studies: Twelve-lead EKG, brain MRI, had/cervical spine CT Assessment and Plan Plan: Assessment: #1. New onset seizure. Patient had a generalized tonic-clonic seizure at home on 11/12/2017 #2. History of recurrent fainting episodes, falls, increased forgetfulness over the period of last 8 months, patient was seen by neurology once in the office, but never followed up #3. Evidence of masslike consolidation in bilateral apices of the lungs on CT brain/cervical spine. Previous CT chest from 02/23/2015 shows similar biapical scarring. Will follow-up with CTA chest tomorrow #4. COPD, the severity of which is unknown at this time. Patient is not oxygen or prednisone dependent. No signs of current exacerbation noted #5. Nicotine dependence, ongoing, down to half a pack a day, but carries 50- pack-year smoking history #6. Chronic back pain Plan: We will obtain CTA chest tomorrow on 11/15/2017 to compare the films to the previous CT chest from 02/23/2015. Patient has COPD, without any current signs of exacerbation. Continue with present medical treatment, no other recommendations for now. I performed a history & physical examination of the patient and discussed their management with my nurse practitioner, Fany King. I reviewed the nurse practitioner's note and agree with the documented findings and plan of care. Lung sounds are diminished. The findings and the impression was discussed with the patient. I attest to the documentation by the nurse practitioner. Time with Patient: Greater than 30
[2017-11-14] MEDS ORDERED: predniSONE 50 MG TAB PO ONE (19:00)
--- NOTE | 2017-11-14 20:01 | P.PN ---
Subjective Progress Note Date: 11/14/17 This patient is a 67-year-old female seen in neurology consultation yesterday for new onset seizure. Apparently she was having several episodes even prior to yesterday's admitting diagnosis. She was loaded with IV Dilantin this morning. Apparently yesterday the nurse had improper Dilantin parameters for IV bolus. This was corrected with the nurse this morning Keeley who did make a note of this in the chart today. The patient will continue on Dilantin 100 mg by mouth 3 times a day. We will check her Dilantin level tomorrow morning. She did undergo MRI of the brain today which was reviewed. MRI indicates stable degenerative changes with no enhancing mass lesions. Patient was seen by pulmonary medicine for evaluation of masslike consolidation of the bilateral apices of the lungs. She is to have a CTA chest tomorrow 11/15/2017 which will be reviewed by pulmonary medicine. Patient was loaded with IV Dilantin this morning due to air last night by the nursing staff on parameters for loading with IV Dilantin. We will check her Dilantin level tomorrow morning and adjust her dose as needed. Clinical history is highly suggesting new onset seizure disorder. We reviewed the results of the MRI which fails to reveal any enhancing mass lesion. We will await further findings of her CTA of the chest tomorrow. We will check her Dilantin level tomorrow morning. Dose will be adjusted as needed. We will continue to follow her progress closely. Overall prognosis at this time remains guarded. Objective - Vital Signs Vital signs: Vital Signs Temp 97.3 F L 11/14/17 15:00 Pulse 69 11/14/17 15:00 Resp 16 11/14/17 15:00 BP 157/75 11/14/17 15:00 Pulse Ox 96 11/14/17 15:00 Intake & Output 11/13/17 11/14/17 11/14/17 18:59 06:59 18:59 Intake Total 965 Balance 965 Weight 46.72 kg 46.72 kg Intake: Oral 965 Other: # Voids 2 3 - Exam Physical examination: PHYSICAL EXAMINATION: Patient is resting comfortably in bed. VITAL SIGNS: Blood pressure is [157/75]. Heart rate is [69]. Respiration is [16] . Temperature is [97.3]. HEENT: Head is atraumatic, neck is supple, there were no carotid bruits. CHEST: Lungs are clear to auscultation and percussion. CARDIAC: S1, S2 normal rate and rhythm. There is no murmur. ABDOMEN: Soft and nontender. Bowel sounds are present. EXTREMITIES: There is no pedal edema. Peripheral pulses are present. Neurological examination: Patient has a nonfocal neurological examination today. - Labs CBC & Chem 7: 11/14/17 07:51 11/14/17 07:51 Labs: Abnormal Lab Results - Last 24 Hours (Table) 11/13/17 11/13/17 11/14/17 Range/Units 17:32 17:32 07:51 Chloride 108 H (98-107) mmol/L BUN 20 H (7-17) mg/dL Total Protein 5.8 L (6.3-8.2) g/dL Cholesterol (<200) mg/dL LDL Cholesterol, Calc (0-99) mg/dL HDL Cholesterol (40-60) mg/dL Urine Bilirubin 1+ H (Negative) 11/14/17 Range/Units 07:51 Chloride (98-107) mmol/L BUN (7-17) mg/dL Total Protein (6.3-8.2) g/dL Cholesterol 220 H (<200) mg/dL LDL Cholesterol, Calc 126 H (0-99) mg/dL HDL Cholesterol 82 H (40-60) mg/dL Urine Bilirubin (Negative) Assessment and Plan (1) Lung mass Current Visit: Yes Status: Acute Code(s): R91.8 - OTHER NONSPECIFIC ABNORMAL FINDING OF LUNG FIELD SNOMED Code(s): 667334226 (2) New onset seizure Current Visit: Yes Status: Acute Code(s): R56.9 - UNSPECIFIED CONVULSIONS SNOMED Code(s): 62944349 Plan: This patient is a 67-year-old female who was admitted to hospital yesterday for new onset seizure. She had a witnessed seizure at home noted by her grandson. She was postictal following the event. She has had multiple several episodes in the last 7 months. She was brought into the emergency room [facility] clearly admitted to the hospital. She underwent MRI of the brain today the results which are noted above. MRI fails to reveal any evidence of acute stroke or enhancing mass lesion. She is being evaluated for masslike consolidation of the lungs. CTA chest is to be done tomorrow. We will await further findings and recommendations per pulmonary medicine. She is on Dilantin monotherapy and we will await her anticonvulsant blood level tomorrow morning and adjust her dose as needed. We reviewed the results of the MRI today with the patient. EEG is pending. We will check her Dilantin level tomorrow morning and adjust her dose as needed. We reviewed the results of the MRI in detail today with the patient at bedside. We will continue close neurological follow-up for the patient along with seizure precautions. Overall prognosis at this time remains guarded.
[2017-11-15] MEDS ORDERED: predniSONE 50 MG TAB PO ONE ×2 (01:00→07:00)
[2017-11-15] MEDS ORDERED: diphenhydrAMINE 50 MG CAP PO ONE (07:00)
--- NOTE | 2017-11-15 08:40 | CT ---
EXAMINATION TYPE: CT chest w con DATE OF EXAM: 11/15/2017 COMPARISON: Previous study dated 02/23/2015. HISTORY: Apical scarring. Lung mass. CT DLP: 112.30 mGycm Automated exposure control for dose reduction was used. CONTRAST: CT scan of the chest is performed with IV Contrast, patient injected with 100 ml mL of Omnipaque 300. FINDINGS: There is biapical scarring, unchanged from previous. There are emphysematous changes throug hout both lungs. No new parenchymal nodularity is seen. There is no significant axillary, internal mammary, mediastinal or hilar adenopathy. The aorta is normal in size. There is no pleural or pericardial fluid. The heart is not enlarged. Visualized portions of the upper abdomen are normal. There is mild hypertrophic spondylosis within the spine. IMPRESSION: 1. EMPHYSEMATOUS CHANGE. 2. STABLE, BIAPICAL SCARRING, WORSE ON THE RIGHT THAN THE LEFT.
[2017-11-15] MEDS: GABAPENTIN 300 MG CAP PO SCH ×3 (09:42→20:52)
[2017-11-15] MEDS: HYDROcodone/APAP 10-325MG 1 EACH TAB PO PRN ×3 (09:43→21:27)
[2017-11-15] MEDS: PHENYTOIN SODIUM EXTENDED 100 MG CAP PO SCH (09:43)
[2017-11-15] MEDS ORDERED: PHENYTOIN SODIUM INJ 1,000 MG in SODIUM CHLORIDE 0.9% 100 ML IVPB STA (12:15)
[2017-11-15] MEDS ORDERED: PHENYTOIN SODIUM EXTENDED 100 MG CAP PO STA (12:21)
--- NOTE | 2017-11-15 12:21 | P.PN ---
Subjective Progress Note Date: 11/15/17 Principal diagnosis: Ears, masslike consolidation in the bilateral apices of the lungsRoslyn Serrato is a 67-year-old white female patient of Dr. Farr, that presented to the emergency department on 11/13/2017 at 1346 after having a seizure episode last night. She was at her grandson's house, was standing at the sink getting at glass of water. She states she felt very strange just prior to the seizure, she fell down, she could hear her son, she did not lose consciousness, and she started having myoclonic shaking and tightening up all over, upper and lower extremities. This lasted 3 minutes and afterward the patient was very tired, groggy, and all of her muscles were hurting. Her son witnessed the seizure. The patient and her family report patient having fainting episodes, falling, increased forgetfulness for the last 8 months. She had seen Dr. Siena Brown in consultation in regards to this problem, however when loss of driving privileges was mentioned due to the possible seizure disorder, patient walked out of the office and never went back again for follow-up. CT brain and cervical spine in the emergency room on 11/13/2017 showed no acute intracranial abnormality, mild atrophic change, and chronic white matter ischemic change. Cervical spine CT showed masslike consolidation in both apices, and diffuse emphysematous changes throughout the visualized portion of the lungs. We are consulted in regards to the biapical masslike consolidation. Looking back at the previous records patient had a chest CT from 02/23/2015, which showed biapical scarring, at that time a 2 year follow-up was recommended to exclude malignancy. There was underlying emphysematous changes and hyperinflation compatible with COPD noted. But no pulmonary nodule or mass was detected. Patient is a current smoker, currently down to half a pack a day, but carries a [id number] smoking history. Was seen in the lung specialist before, is not on any oxygen, not on any inhalers, denies any shortness of breath or activity limitation due to her exercise capacity on a regular basis. She states this CT chest from [address] Farr in regards to persistent lung congestion, and coughing at that time. Currently she denies any respiratory problems, dyspnea, chest congestion or wheezing. Denies any chest pain, hemoptysis. She is afebrile, signs are stable, she is on room air at 96%. Chest x-ray from 11/13/2017 showed prominent lung volumes, but the lungs are clear. The patient is seen again today 11/15/2017 in follow-up on the regular medical floor. She is awake and alert in no acute distress. No further seizure activity. She remains on Dilantin 100 mg 3 times a day. She is up ambulating in her room. She denies any shortness of breath, cough or congestion. Maintaining good O2 saturations in the 90s on room air. The computed tomography scan of the chest done this morning is quite comparable to the one from 2015 regarding the bilateral apices masses. No significant changes. Objective - Vital Signs Vital signs: Vital Signs Temp 97.4 F L 11/15/17 07:00 Pulse 81 11/15/17 07:00 Resp 16 11/15/17 07:00 BP 144/80 11/15/17 07:00 Pulse Ox 96 11/15/17 07:00 Intake & Output 11/14/17 11/15/17 11/15/17 18:59 06:59 18:59 Intake Total 965 400 Balance 965 400 Weight 46.72 kg Intake: Oral 965 400 Other: # Voids 3 1 - Exam GENERAL EXAM: Alert, pleasant 67-year-old thin white female, comfortable in no apparent distress. HEAD: Normocephalic/atraumatic. EYES: Normal reaction of pupils, equal size. Conjunctiva pink, sclera white. NOSE: Clear with pink turbinates. THROAT: No erythema or exudates. NECK: No masses, no JVD, no thyroid enlargement, no adenopathy. CHEST: No chest wall deformity. Symmetrical expansion. LUNGS: Equal air entry with no crackles, wheeze, rhonchi or dullness. CVS: Regular rate and rhythm, normal S1 and S2, no gallops, no murmurs, no rubs ABDOMEN: Soft, nontender. No hepatosplenomegaly, normal bowel sounds, no guarding or rigidity. EXTREMITIES: No clubbing, no edema, no cyanosis, 2+ pulses and upper and lower extremities. MUSCULOSKELETAL: Muscle strength and tone normal. SPINE: No scoliosis or deformity SKIN: No rashes CENTRAL NERVOUS SYSTEM: Alert and oriented -3. No focal deficits, tone is normal in all 4 extremities. PSYCHIATRIC: Alert and oriented -3. Appropriate affect. Intact judgment and insight. - Labs CBC & Chem 7: 11/14/17 07:51 11/14/17 07:51 Labs: Abnormal Lab Results - Last 24 Hours (Table) 11/14/17 Range/Units 07:51 Cholesterol 220 H (<200) mg/dL LDL Cholesterol, Calc 126 H (0-99) mg/dL HDL Cholesterol 82 H (40-60) mg/dL Assessment and Plan Assessment: Assessment: #1. New onset seizure. Patient had a generalized tonic-clonic seizure at home on 11/12/2017 #2. History of recurrent fainting episodes, falls, increased forgetfulness over the period of last 8 months, patient was seen by neurology once in the office, but never followed up #3. Evidence of masslike consolidation in bilateral apices of the lungs on CT brain/cervical spine. Previous CT chest from 02/23/2015 shows similar biapical scarring. Follow-up computed tomography scan of the chest today reveals no significant change as compared to previous. Routine follow-up recommended. #4. COPD, the severity of which is unknown at this time. Patient is not oxygen or prednisone dependent. No signs of current exacerbation noted #5. Nicotine dependence, ongoing, down to half a pack a day, but carries 50- pack-year smoking history #6. Chronic back pain Plan: The patient was seen and evaluated by Dr. Rasmussen. She is stable from the pulmonary standpoint. Her computed tomography scan was reviewed and compared to the previous. There is no significant change at all. Plan for routine follow-up. No further interventions for now. No pulmonary complaints. We will follow the patient on as-needed basis. I, the cosigning physician, performed a history & physical examination of the patient. Lungs sounds are clear. Maintaining good O2 saturations in the 90s on room air. I discussed the assessment and plan of care with my nurse practitioner, Gisele Moore. I attest to the above note as dictated by her.
--- NOTE | 2017-11-15 14:22 | P.PN ---
Subjective Patient is being evaluated for possible seizure and patient is on phenytoin at this point of time and patient started on level is less than 4 and the initial plan was to discharge the patient home but the neurology is recommending that patient should stay until she is 68 can phenytoin. Patient is also being evaluated for a syncopal episode with an echocardiogram which she results of which is still pending telemetry did not show any significant abnormality patient was evaluated by pulmonary for possible pulmonary nodules in the bilateral upper lobes of the lung which will be followed as an outpatient. Constitutional: Denied any fatigue denied any fever. Cardio vascular: denied any chest pain, palpitations Gastrointestinal denied any nausea vomiting Pulmonary: Denied any shortness of breath cough Neurologic denied any new focal deficits Objective - Vital Signs Vital signs: Vital Signs Temp 97.4 F L 11/15/17 07:00 Pulse 81 11/15/17 07:00 Resp 16 11/15/17 07:00 BP 144/80 11/15/17 07:00 Pulse Ox 96 11/15/17 07:00 Intake & Output 11/14/17 11/15/17 11/15/17 18:59 06:59 18:59 Intake Total 965 400 Balance 965 400 Weight 46.72 kg Intake: Oral 965 400 Other: # Voids 3 1 - Exam PHYSICAL EXAMINATION: GENERAL: The patient is alert and oriented x3, not in any acute distress. Well developed, well nourished. HEENT: Pupils are round and equally reacting to light. EOMI. No scleral icterus. No conjunctival pallor. Normocephalic, atraumatic. No pharyngeal erythema. No thyromegaly. CARDIOVASCULAR: S1 and S2 present. No murmurs, rubs, or gallops. PULMONARY: Chest is clear to auscultation, no wheezing or crackles. ABDOMEN: Soft, nontender, nondistended, normoactive bowel sounds. No palpable organomegaly. MUSCULOSKELETAL: No joint swelling or deformity. EXTREMITIES: No cyanosis, clubbing, or pedal edema. NEUROLOGICAL: Gross neurological examination did not reveal any focal deficits. SKIN: No rashes. - Labs CBC & Chem 7: 11/14/17 07:51 11/14/17 07:51 Assessment and Plan Plan: -Possible syncope are a seizure: MRI of the brain as mentioned above neurology was consulted patient is on phenytoin and cardiology will be consulted echocardiogram will be obtained. Subtherapeutic phenytoin levels because of which neurology is recommending one more night of hospitalization and recheck pro time levels tomorrow morning -Nicotine abuse: Counseling was provided -Pulmonary nodules, all of it pulmonary as an outpatient -Nicotine abuse: Counseling was provided
--- NOTE | 2017-11-15 15:33 | EEG ---
ELECTROENCEPHALOGRAM REPORT DATE OF EE11/15/2017 ELECTROENCEPHALOGRAPHIC EXAMINATION REPORT: INDICATION FOR EXAMINATION: This patient is a 67-year-old female being evaluated for new onset seizures. The patient with multiple syncopal episodes. AGE: 67. EEG FINDINGS: A routine 21-channel awake digital EEG recording was accomplished utilizing the 10-20 international system with bipolar and referential montages. The background activity in the most alert resting state consists of a low to medium amplitude, fairly well- developed and well-sustained 6-7 Hz activity over the posterior head regions. This posterior rhythm attenuates to eye opening. There is a small amount of low [id number]- 20 Hz beta activity seen maximally over the anterior head regions. Muscle and movement artifact was observed on a few occasions during the tracing. Hyperventilation was not performed. Photic stimulation at flash frequencies of 2-30 Hz produced a good symmetrical occipital driving response. No epileptiform discharges were seen. IMPRESSION: This EEG is mildly abnormal in diffuse fashion due to slight slowing of the EEG background. The EEG failed to reveal any focal, lateralized, or epileptiform abnormalities. Clinical correlation is recommended. MMODL / IJN: [id number] /
--- NOTE | 2017-11-15 16:32 | P.PN ---
Subjective Progress Note Date: 11/15/17 This patient is a 67-year-old female seen in neurology consultation yesterday for new onset seizure. Apparently she was having several episodes even prior to yesterday's admitting diagnosis. She was loaded with IV Dilantin this morning. Apparently yesterday the nurse had improper Dilantin parameters for IV bolus. This was corrected with the nurse this morning Keeley who did make a note of this in the chart today. The patient will continue on Dilantin 100 mg by mouth 3 times a day. We will check her Dilantin level tomorrow morning. She did undergo MRI of the brain today which was reviewed. MRI indicates stable degenerative changes with no enhancing mass lesions. Patient was seen by pulmonary medicine for evaluation of masslike consolidation of the bilateral apices of the lungs. She is to have a CTA chest tomorrow 11/15/2017 which will be reviewed by pulmonary medicine. Patient was loaded with IV Dilantin this morning due to air last night by the nursing staff on parameters for loading with IV Dilantin. We will check her Dilantin level tomorrow morning and adjust her dose as needed. Her Dilantin level remained low this morning at 4.2. We have rebolus her with IV Dilantin again today. We will recheck her level tomorrow morning. We will change her maintenance dose of Dilantin to 200 mg by mouth twice a day. Clinical history is highly suggesting new onset seizure disorder. We reviewed the results of the MRI which fails to reveal any enhancing mass lesion. Her CT angiogram of the chest was completed today and reveals only scar tissue. Pulmonary medicine is following her for this. No further intervention is recommended. We will check her Dilantin level tomorrow morning. Dose will be adjusted as needed. We will continue to follow her progress closely. She underwent routine EEG today which was reviewed and is only mildly abnormal with no epileptiform discharges noted. Overall prognosis at this time remains guarded. Continue with seizure precautions for this patient. We will reevaluate the patient tomorrow. She may be considered for discharge home tomorrow if her Dilantin level is therapeutic. Objective - Vital Signs Vital signs: Vital Signs Temp 97.4 F L 11/15/17 07:00 Pulse 81 11/15/17 07:00 Resp 16 11/15/17 07:00 BP 144/80 11/15/17 07:00 Pulse Ox 96 11/15/17 07:00 Intake & Output 11/14/17 11/15/17 11/15/17 18:59 06:59 18:59 Intake Total 965 400 100 Balance 965 400 100 Weight 46.72 kg Intake: Intake, IV Titration 100 Amount Phenytoin Sodium Inj 1, 100 000 mg In Sodium Chloride 0.9% 100 ml @ 200 mls/hr IVPB ONCE STA Rx#: [id number] Oral 965 400 Other: # Voids 3 1 - Exam Physical examination: PHYSICAL EXAMINATION: Patient is resting comfortably in bed. VITAL SIGNS: Blood pressure is [144/80]. Heart rate is [81]. Respiration is [16] . Temperature is [97.4]. HEENT: Head is atraumatic, neck is supple, there were no carotid bruits. CHEST: Lungs are clear to auscultation and percussion. CARDIAC: S1, S2 normal rate and rhythm. There is no murmur. ABDOMEN: Soft and nontender. Bowel sounds are present. EXTREMITIES: There is no pedal edema. Peripheral pulses are present. Neurological examination: Patient has a nonfocal neurological examination today. - Labs CBC & Chem 7: 11/14/17 07:51 11/14/17 07:51 Assessment and Plan (1) Lung mass Current Visit: Yes Status: Acute Code(s): R91.8 - OTHER NONSPECIFIC ABNORMAL FINDING OF LUNG FIELD SNOMED Code(s): 554264691 (2) New onset seizure Current Visit: Yes Status: Acute Code(s): R56.9 - UNSPECIFIED CONVULSIONS SNOMED Code(s): 28610584 Plan: This patient is a 67-year-old female being evaluated for new onset seizure. She is currently being treated with Dilantin monotherapy for seizure prophylaxis. Her Dilantin level today was subtherapeutic at 4.2. She was re- bolused with IV Dilantin and her dosage was changed to Dilantin 200 mg by mouth twice a day. We will recheck her Dilantin level tomorrow morning. If she is therapeutic she may be considered for discharge home. She underwent CT angiogram of the chest today which reveals only scarring of the apices of the lung. She does not require any further pulmonary intervention at this time. Patient did undergo MRI of the brain which was negative for any enhancing mass lesions. Her routine EEG was completed today and is mildly abnormal with no evidence of any epileptiform discharges. Patient is advised of the [employer] driving law which states she should not drive for 6 months following a seizure. We will continue to follow her progress closely during this admission.
--- NOTE | 2017-11-15 20:24 | CONS ---
CONSULTATION Mrs. Bird is a 67-year-old female who presented after seizure activity and loss of conscious. Cardiology consultation was requested to evaluate her cardiac status. The patient has no prior history of cardiac disease. She has symptoms of dyspnea on exertion. She denies any history of chest discomfort. Her breathing has been stable. She denies any dizziness or palpitation. She had syncopal episode at this time, but not in the past. She has no prior cardiac history and her risk factors only for the history of smoking. She has mild dyspnea on exertion related to her smoking. According to her, she may have had a prior seizure activity, but no evaluation was done at that time, and she has not been evaluated by Neurology service in the past. Her coronary risk factors are negative for hypertension, diabetes, or documented hyperlipidemia. MEDICATION: At home include Neurontin, Lodine, and [place]. REVIEW OF SYSTEMS: RESPIRATORY system: She has dyspnea on exertion related to her chronic tobacco use. Occasional wheezing. GI system: No recent GI bleeding. No peptic ulcer disease. system: No dysuria or hematuria. Nervous system: No history of stroke. PHYSICAL EXAMINATION: She is a 67-year-old female, alert, oriented, in no apparent distress. Blood pressure 144/80 with a heart rate in the 80s. HEAD: Normocephalic. Eyes sclerae anicteric. Neck good upstroke. No bruit. No jugular venous distention. LUNGS: Decreased air exchange bilaterally. No wheezes. HEART: Regular rate and rhythm S1, S2. No S3 with systolic murmur at the base 2/6. No diastolic murmur. No rub. ABDOMEN: Soft, nontender. Positive bowel sounds. No megaly. EXTREMITIES: No edema. Intact distal pulses. LAB DATA: Lab data revealed a hemoglobin 12.9, BUN and creatinine 16 and 0.8, cholesterol 220, LDL of 126. EKG revealed sinus mechanism, normal axis, intervals, normal electrocardiogram. IMPRESSION: 1. Seizure activity. No evidence to suggest any cardiac etiology. 2. Chronic tobacco use. 3. Hyperlipidemia. RECOMMENDATION: From the cardiac standpoint, we will continue current therapy. I will review the results of her echocardiogram. I will continue rest of medical regimen. I will add statin to her regimen in view of her risks and her lab data. Once she is stabilized from the neurological standpoint, she may benefit from cardiac workup as a outpatient. Thank you for this consult. We will follow with you. MMADRIANE / IJN: [id number] /
[2017-11-15] MEDS ORDERED: PHENYTOIN SODIUM EXTENDED 100 MG CAP PO SCH (21:00)
[2017-11-16 00:35] VITALS: BP 153/88; PULSE 84; RESP 20; TEMP 97.9
[2017-11-16] MEDS ORDERED: ATORVASTATIN 20 MG TAB PO SCH (09:00)
--- NOTE | 2017-11-16 13:50 | P.DS ---
Providers Date of admission: 11/13/17 19:39 Attending physician: Nyla Cardona Consults: 11/13/17 19:12 Consult Physician Stat Consulting Provider: Kassandra Rasmussen Consult Reason/Comments: Lung mass Do you want consulting provider notified?: Yes Consult Physician Stat Consulting Provider: Siena Brown Consult Reason/Comments: New-onset seizure Do you want consulting provider notified?: Yes 11/14/17 12:14 Consult Physician Routine Consulting Provider: Per Hernandez Consult Reason/Comments: syncope Do you want consulting provider notified?: Yes Primary care physician: Ramila Farr Hospital Course: Patient left AMA Patient Condition at Discharge: Stable Plan - Discharge Summary Discharge Rx Participant: Yes New Discharge Prescriptions: No Action Etodolac [Lodine] 400 mg PO BID HYDROcodone/APAP 10-325MG [[place] 10-325] 1 tab PO QID PRN PRN Reason: Pain Gabapentin [Neurontin] 600 mg PO TID Dilantin Unknown Dose 2 tab PO BID Phenytoin Sodium Extended [Dilantin] 200 mg PO BID #60 cap Discharge Medication List Etodolac [Lodine] 400 mg PO BID 11/13/17 [History] Gabapentin [Neurontin] 600 mg PO TID 11/13/17 [History] HYDROcodone/APAP 10-325MG [[place] 10-325] 1 tab PO QID PRN 11/13/17 [History] Dilantin Unknown Dose 2 tab PO BID 11/16/17 [History] Phenytoin Sodium Extended [Dilantin] 200 mg PO BID #60 cap 11/16/17 [Rx] Follow up Appointment(s)/Referral(s): Kassandra Rasmussen MD [STAFF PHYSICIAN] - As Needed (Please follow up in office in 4 month from now, February 2018) Cayla Echevarria MD [STAFF PHYSICIAN] - 4 Weeks [facility], [NON-STAFF] - Ramila Farr MD [Primary Care Provider] - 1-2 days Discharge Disposition: Left Against Medical Advice
--- NOTE | 2017-11-17 08:46 | ECHOF ---
Referral Reason:syncope MEASUREMENTS -------- HEIGHT: 167.6 cm WEIGHT: 46.7 kg BP: 155/87 RVIDd: 1.9 cm (< 3.3) IVSd: 1.1 cm (0.6 - 1.1) LVIDd: 3.6 cm (3.9 - 5.3) LVPWd: 1.0 cm (0.6 - 1.1) IVSs: 1.4 cm LVIDs: 2.3 cm LVPWs: 1.3 cm LA Diam: 2.4 cm (2.7 - 3.8) LAESV Index (A-L): 7.31 ml/m Ao Diam: 3.0 cm (2.0 - 3.7) AV Cusp: 2.1 cm (1.5 - 2.6) MV EXCURSION: 14.837 mm (> 18.000) MV EF SLOPE: 54 mm/s (70 - 150) EPSS: 0.6 cm MV E Arnulfo: 0.81 m/s MV DecT: 309 ms MV A [place]: 0.96 m/s MV E/A Ratio: 0.85 RAP: 5.00 mmHg RVSP: 28.65 mmHg FINDINGS -------- Sinus rhythm. This was a technically adequate study. The left ventricular size is normal. There is borderline concentric left ventricular hypertrophy. Overall left ventricular systolic function is normal with, an EF between 55 - 60 %. The right ventricle is normal in size. Normal LA size by volume 22+/-6 ml/m2. The right atrium is normal in size. The aortic valve is trileaflet and appears structurally normal. The mitral valve leaflets are mildly thickened. Mild mitral annular calcification present. There is trace mitral regurgitation. Mild tricuspid regurgitation present. Right ventricular systolic pressure is normal at < 35 mmHg. The pulmonic valve was not well visualized. The aortic root size is normal. Normal inferior vena cava with normal inspiratory collapse consistent with estimated right atrial pre ssure of 5 mmHg. There is no pericardial effusion. CONCLUSIONS -------- 1. Sinus rhythm. 2. This was a technically adequate study. 3. The left ventricular size is normal. 4. There is borderline concentric left ventricular hypertrophy. 5. Overall left ventricular systolic function is normal with, an EF between 55 - 60 %. 6. The right ventricle is normal in size. 7. Normal LA size by volume 22+/-6 ml/m2. 8. The right atrium is normal in size. 9. The aortic valve is trileaflet and appears structurally normal. 10. The mitral valve leaflets are mildly thickened. 11. Mild mitral annular calcification present. 12. There is trace mitral regurgitation. 13. Mild tricuspid regurgitation present. 14. Right ventricular systolic pressure is normal at < 35 mmHg. 15. The pulmonic valve was not well visualized. 16. The aortic root size is normal. 17. Normal inferior vena cava with normal inspiratory collapse consistent with estimated right atrial pressure of 5 mmHg. 18. There is no pericardial effusion. CAREER AND GUIDANCE COUNSELOR: Lesli Reyes RDCS
== END 2017-11-16 02:15 | disposition left against medical advice (07) ==
LOC: EC 13:46 → INTOOBSV 19:39 → 4MS4W 19:39
PROVIDERS: ADMIT Hospitalist; ATTEND Hospitalist
DX: G40.409 Other generalized epilepsy and epileptic syndromes, not intractable, without status epilepticus (principal); R55 Syncope and collapse; G89.29 Other chronic pain; M54.2 Cervicalgia; R91.8 Other nonspecific abnormal finding of lung field; E78.5 Hyperlipidemia, unspecified; J44.9 Chronic obstructive pulmonary disease, unspecified; F17.210 Nicotine dependence, cigarettes, uncomplicated; Z88.0 Allergy status to penicillin; Z79.899 Other long term (current) drug therapy; Z91.041 Radiographic dye allergy status
CPT/HCPCS: 96365; 96366; 96375; 99285; 36415; 95819; 93005; 93306; 80061; 80053 ×2; 82550; 82553; 80185 ×2; 84484; 85025 ×2; 85610; 85730; 81003; 71046; 72125; 70450; 71260; 70553; G0378 ×4; J0360; J1165 ×2; Q9967; J7512 ×2; A9581

== ENCOUNTER 2017-11-16 03:58 | Observation (INO) | payer MEDICARE, OTHER ==
[2017-11-16] MEDS ORDERED: DIPH,PERTUS(ACELL)TETVAC-LF 0.5 ML VIAL IM ONE (04:44)
--- NOTE | 2017-11-16 05:35 | XR ---
EXAM: XR Left Hand Complete, 3 or More Views CLINICAL HISTORY: Reason: Pain TECHNIQUE: Frontal, lateral and oblique views of the left hand. COMPARISON: No relevant prior studies available. FINDINGS: Bones/joints: There is narrowing of the radiocarpal joint. In the lateral projection, there is heterotopic ossification involving the ventral aspect of the radiocarpal joint. Joint space narrowing involving the first third and fifth interphalangeal joints are noted. No acute fracture. No dislocation. Soft tissues: No soft tissue calcifications. No radiopaque foreign body. Other findings: Mineralization is normal. IMPRESSION: Degenerative changes of the left hand. Heterotopic ossification noted involving the ventral aspect of the radiocarpal joint. This presumed degenerative in nature. If there is a history of traumatic injury, MRI is recommended for further evaluation of the wrist. Please correlate with location of patient's pain.
[2017-11-16 05:42] LABS: Basophils % (A) 0 %; Eosinophils % (A) 0 %; HCT 39.9 % (34.0-46.0); HGB 12.6 gm/dL (11.4-16.0); Lymphocytes # (A) 0.8 k/uL (1.0-4.8); Lymphocytes % (A) 7 %; MCH 31.1 pg (25.0-35.0); MCHC 31.5 g/dL (31.0-37.0); MCV 98.6 fL (80.0-100.0); Mean Platelet Volume 8.1; Monocytes # (A) 0.9 k/uL (0-1.0); Monocytes % (A) 7 %; Neutrophils % (A) 86 %; Platelet Count 189 k/uL (150-450); RBC 4.04 m/uL (3.80-5.40); RDW 14.1 % (11.5-15.5); WBC 12.9 k/uL (3.8-10.6)
--- NOTE | 2017-11-16 05:42 | CT ---
EXAM: CT Head Without Intravenous Contrast CLINICAL HISTORY: Reason: Pain TECHNIQUE: Axial computed tomography images of the head/brain without intravenous contrast. CTDI is 57.40 mGy and DLP is 1081.60 mGy-cm. This CT exam was performed using one or more of the following dose reduction techniques: automated exposure control, adjustment of the mA and/or kV according to patient size, and/or use of iterative reconstruction technique. COMPARISON: 08/09/17; 11/13/2017. FINDINGS: Brain: Prominence of the cerebral sulci and sylvian fissures is stable. Hypodensity in the periventricular region, particularly in the right frontal region is stable. No hemorrhage. No significant white matter disease. Ventricles: Unremarkable. No ventriculomegaly. Bones/joints: Unremarkable. No acute fracture. Soft tissues: Unremarkable. Sinuses: Unremarkable as visualized. No acute sinusitis. Mastoid air cells: Unremarkable as visualized. No mastoid effusion. IMPRESSION: Stable cerebral atrophy without acute intracranial process identified. EXAM: CT Cervical Spine Without Intravenous Contrast CLINICAL HISTORY: Reason: Pain TECHNIQUE: Axial computed tomography images of the cervical spine without intravenous contrast. CTDI is 13.80 mGy and DLP is 269.40 mGy-cm. This CT exam was performed using one or more of the following dose reduction techniques: automated exposure control, adjustment of the mA and/or kV according to patient size, and/or use of iterative reconstruction technique. Coronal and sagittal reformatted images were created and reviewed. COMPARISON: 11/13/2017 FINDINGS: Vertebrae: Straightening of the normal cervical lordosis with minimal reversal is stable with multilevel degenerative changes noted. Multilevel disc spondylosis with marginal hypertrophic osteophyte formation and facet hypertrophic changes leading to osseous neural foraminal narrowing at multiple levels is again noted and is stable. No acute fracture. Discs/spinal canal/neural foramina: See above. Soft tissues: Unremarkable. Lung apices: Unremarkable as visualized. IMPRESSION: Stable degenerative changes of the cervical spine without acute osseous traumatic injury or significant interval change from previous exam. Masslike consolidation involving both lung apices remains stable. Impression. Previous recommendation for nonemergent further cross- sectional imaging remains.
[2017-11-16] MEDS ORDERED: HYDROcodone/APAP 5-325MG 1 EACH TAB PO STA (05:44)
[2017-11-16 05:54] LABS: ALT 55 U/L (9-52); AST 46 U/L (14-36); Albumin 3.8 g/dL (3.5-5.0); Alkaline Phosphatase 60 U/L (38-126); Anion Gap 8 mmol/L; Blood Urea Nitrogen 25 mg/dL (7-17); Calcium 9.5 mg/dL (8.4-10.2); Carbon Dioxide 26 mmol/L (22-30); Chloride 111 mmol/L (98-107); Glucose 85 mg/dL (74-99); Sodium 145 mmol/L (137-145); Total Bilirubin 0.3 mg/dL (0.2-1.3); Total Protein 6.1 g/dL (6.3-8.2)
[2017-11-16 06:03] LABS: Potassium 3.7 mmol/L (3.5-5.1)
[2017-11-16] MEDS ORDERED: NALOXONE 0.4 MG/ML 1 ML VIAL IV PRN (07:03)
[2017-11-16] MEDS ORDERED: SODIUM CHLORIDE 0.9% 1,000 ML IV SCH (07:15)
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
[2017-11-16 08:40] VITALS: BP 160/80; PULSE 80; RESP 16; TEMP 97
[2017-11-16] MEDS ORDERED: PHENYTOIN SODIUM EXTENDED 100 MG CAP PO SCH (09:00)
[2017-11-16 10:47] VITALS: BMI 16.9
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
[2017-11-16] MEDS ORDERED: HYDROcodone/APAP 10-325MG 1 EACH TAB PO PRN (11:54)
--- NOTE | 2017-11-16 13:49 | P.HPIM ---
History of Present Illness 67-year-old female is being evaluated for seizures there is no evidence of seizures on MRI and EEG although patient wasn't really started on Dilantin patient was not discharged yesterday but left AMA. Neurology advised repeat Dilantin levels today. But patient left AMA shortly after she was discharged when EMS left her home patient slipped and fell on the ice and came back to ER patient denied any syncopal episode seizure-like activity patient was evaluated in ER had the x-rays of the left hand which did not show any fractures patient has multiple bruises on the body. Patient is not willing to stay in the hospital. Although neurology validate the patient is recommended repeat Dilantin levels tomorrow and orthopedic consultation. There are no active fractures and patient wanted to be discharged because of which are good and discharge the patient will obtain Dilantin levels tomorrow morning to fax the results to Dr. Luis delacruz. Review of Systems REVIEW OF SYSTEMS: CONSTITUTIONAL: No fever, no malaise, no fatigue. HEENT: No recent visual problems or hearing problems. Denied any sore throat. CARDIOVASCULAR: No chest pain, orthopnea, PND, no palpitations, no syncope. PULMONARY: No shortness of breath, no cough, no hemoptysis. GASTROINTESTINAL: No diarrhea, no nausea, no vomiting, no abdominal pain. Normoactive bowel sounds. NEUROLOGICAL: No headaches, no weakness, no numbness. HEMATOLOGICAL: Denies any bleeding or petechiae. GENITOURINARY: Denies any burning micturition, frequency, or urgency. MUSCULOSKELETAL/RHEUMATOLOGICAL: Denies any joint pain, swelling, or any muscle pain. ENDOCRINE: Denies any polyuria or polydipsia. The rest of the 14-point review of systems is negative. Past Medical History Additional Past Medical History / Comment(s): chronic back pain, RA History of Any Multi-Drug Resistant Organisms: None Reported Past Surgical History: Section, Cholecystectomy, Hernia Repair, Orthopedic Surgery Past Psychological History: No Psychological Hx Reported Smoking Status: Current every day smoker Past Alcohol Use History: Occasional Past Drug Use History: Marijuana Medications and Allergies Home Medications Medication Instructions Recorded Confirmed Type Etodolac [Lodine] 400 mg PO BID 11/13/17 11/16/17 History Gabapentin [Neurontin] 600 mg PO TID 11/13/17 11/16/17 History HYDROcodone/APAP 10-325MG [[place] 1 tab PO QID PRN 11/13/17 11/16/17 History 10-325] Dilantin Unknown Dose 2 tab PO BID 11/16/17 11/16/17 History Phenytoin Sodium Extended 200 mg PO BID #60 cap 11/16/17 Rx [Dilantin] Allergies Allergy/AdvReac Type Severity Reaction Status Date / Time Iodinated Contrast- Oral and Allergy Rash/Hives Verified 11/16/17 07:31 IV Dye Penicillins Allergy Rash/Hives Verified 11/16/17 07:31 Physical Exam Vitals: Vital Signs Temp Pulse Pulse Resp BP BP Pulse Ox 11/16/17 08:38 97.0 F L 80 16 160/80 96 11/16/17 08:14 97.2 F L 79 18 165/87 96 11/16/17 06:45 97.7 F 73 16 158/74 96 11/16/17 05:46 75 18 160/75 96 11/16/17 04:02 96.8 F L 83 20 180/79 97 Intake and Output 11/15/17 11/16/17 11/16/17 22:59 06:59 14:59 Other: Weight 46.266 kg 46.266 kg Patient Weight 11/17/17 06:59 Weight 46.266 kg PHYSICAL EXAMINATION: GENERAL: The patient is alert and oriented x3, not in any acute distress. Well developed, well nourished. HEENT: Pupils are round and equally reacting to light. EOMI. No scleral icterus. No conjunctival pallor. Normocephalic, atraumatic. No pharyngeal erythema. No thyromegaly. CARDIOVASCULAR: S1 and S2 present. No murmurs, rubs, or gallops. PULMONARY: Chest is clear to auscultation, no wheezing or crackles. ABDOMEN: Soft, nontender, nondistended, normoactive bowel sounds. No palpable organomegaly. MUSCULOSKELETAL: No joint swelling or deformity. EXTREMITIES: No cyanosis, clubbing, or pedal edema. NEUROLOGICAL: Gross neurological examination did not reveal any focal deficits. SKIN: Multiple bruises Results CBC & Chem 7: 11/16/17 05:30 11/16/17 05:30 Labs: Abnormal Lab Results - Last 24 Hours (Table) 11/16/17 11/16/17 Range/Units 05:30 05:30 WBC 12.9 H (3.8-10.6) k/uL Neutrophils # 11.0 H (1.3-7.7) k/uL Lymphocytes # 0.8 L (1.0-4.8) k/uL Chloride 111 H (98-107) mmol/L BUN 25 H (7-17) mg/dL AST 46 H (14-36) U/L ALT 55 H (9-52) U/L Total Protein 6.1 L (6.3-8.2) g/dL Thrombosis Risk Factor Assmnt - Choose All That Apply Any of the Below Risk Factors Present?: No Assessment and Plan Plan: -Mechanical fall: Workup with head and cervical spine CT and hand x-ray are negative. -Possible seizure activity patient was also to rule out syncopal episode cardiology evaluated the patient during her previous hospitalization. As patient is insisting on discharge we'll discharge her on 200 twice a day of Dilantin with repeat Dilantin levels tomorrow morning and follow with Dr. Brown as an outpatient and results of the Dilantin levels will be faxed to Dr. Smith [facility]. -Hyperlipidemia -Chronic tobacco use counseling was provided -Pulmonary nodules for which patient will follow with pulmonology as an outpatient
--- NOTE | 2017-11-16 13:49 | P.DS ---
Providers Date of admission: 11/16/17 07:05 Attending physician: Jo Schaffer Consults: 11/16/17 07:11 Consult Physician Routine Consulting Provider: Albert Brown Consult Reason/Comments: Possible seizures Do you want consulting provider notified?: Yes 11/16/17 10:33 Consult Physician Routine Consulting Provider: Adwoa Hanley Consult Reason/Comments: multiple falls and contusions, left wrist and hand pain Do you want consulting provider notified?: Yes Primary care physician: Ramila Farr [facility] Course: Please refer to my HPI Patient Condition at Discharge: Good Plan - Discharge Summary Discharge Rx Participant: Yes New Discharge Prescriptions: New Phenytoin Sodium Extended [Dilantin] 200 mg PO BID #60 cap Continue Etodolac [Lodine] 400 mg PO BID HYDROcodone/APAP 10-325MG [[place] 10-325] 1 tab PO QID PRN PRN Reason: Pain Gabapentin [Neurontin] 600 mg PO TID Dilantin Unknown Dose 2 tab PO BID Discharge Medication List Etodolac [Lodine] 400 mg PO BID 11/13/17 [History] Gabapentin [Neurontin] 600 mg PO TID 11/13/17 [History] HYDROcodone/APAP 10-325MG [[place] 10-325] 1 tab PO QID PRN 11/13/17 [History] Dilantin Unknown Dose 2 tab PO BID 11/16/17 [History] Phenytoin Sodium Extended [Dilantin] 200 mg PO BID #60 cap 11/16/17 [Rx] Follow up Appointment(s)/Referral(s): Albert Brown MD [STAFF PHYSICIAN] - 1 Week (Please call and ralph appointment on Friday) Ramila Farr MD [Primary Care Provider] - 3 Days (Please call and make appointment on Friday) Kassandra Rasmussen MD [STAFF PHYSICIAN] - 1 Week Activity/Diet/Wound Care/Special Instructions: Please bring script to get blood drawn 11/17/16. Can get blood drawn at Dr. Farr 's office or at [facility]. Results to be sent to Dr. Jimenez's office. Dr. Farr to refer pt to physical therapy out patient Discharge Disposition: HOME SELF-CARE
[2017-11-16] MEDS ORDERED: GABAPENTIN 300 MG CAP PO SCH (16:00)
[2017-11-16] MEDS ORDERED: ETODOLAC 400 MG TAB PO SCH (21:00)
== END 2017-11-16 13:31 | disposition home or self-care (01) ==
LOC: EC 03:58 → 4MS4W 07:05
PROVIDERS: ADMIT Internal Medicine; ATTEND Internal Medicine
DX: S60.222A Contusion of left hand, initial encounter (principal); S80.02XA Contusion of left knee, initial encounter; Z23 Encounter for immunization; W00.0XXA Fall on same level due to ice and snow, initial encounter; Y93.01 Activity, walking, marching and hiking; R29.6 Repeated falls; M54.2 Cervicalgia; M06.9 Rheumatoid arthritis, unspecified; M54.9 Dorsalgia, unspecified; G89.29 Other chronic pain; F17.200 Nicotine dependence, unspecified, uncomplicated; S80.01XA Contusion of right knee, initial encounter; S80.212A Abrasion, left knee, initial encounter; E78.5 Hyperlipidemia, unspecified; R91.8 Other nonspecific abnormal finding of lung field; S80.211A Abrasion, right knee, initial encounter; G40.909 Epilepsy, unspecified, not intractable, without status epilepticus; S00.83XA Contusion of other part of head, initial encounter; Z79.899 Other long term (current) drug therapy; Z88.0 Allergy status to penicillin; Z91.041 Radiographic dye allergy status
CPT/HCPCS: 99285; 36415; 80053; 80185; 85025; 73130; 72125; 70450; 90715; G0378

== ENCOUNTER → 2018-11-30 | Outpatient (CLI) | payer MEDICARE, OTHER | END | disposition home or self-care (01) | LOC: LABWHC1 11:16 | PROVIDERS: ATTEND Psychiatry & Neurology Neurology | DX: G40.009 Localization-related (focal) (partial) idiopathic epilepsy and epileptic syndromes with seizures of localized onset, not intractable, without status epilepticus (principal) | CPT/HCPCS: 36415; 80177 ==

== ENCOUNTER 2018-12-10 07:40 | Day surgery (SDC) | payer MEDICARE, OTHER ==
[~2018-12-10 07:40] MED LIST: SODIUM CHLORIDE 0.9% 1,000 ML IV SCH
[2018-12-10 08:24] VITALS: RESP 16; TEMP 926
[2018-12-10] MEDS ORDERED: IV FLUID CONTINUATION 1,000 ML IV ONE (09:37)
[2018-12-10 10:39] VITALS: BP 165/75; PULSE 76
--- NOTE | 2018-12-10 12:04 | P.PCN ---
Preoperative Diagnosis: Diagnosis Recurrent syncope Related ECG shows sinus rhythm normal LA interval narrow QRS early repolarization abnormality inferolaterally Tilt table test per protocol Baseline blood pressure 170/81 mmHg, Baseline heart rate is 60 beats a minute [facility] [place] upright at an angle of 70 per protocol her blood pressure remained elevated throughout the procedure between 160-200 mmHg No evidence for neurocardiogenic syncope no evidence for dysautonomia No syncope Impression Elevated blood pressure readings throughout the study Twelve-lead ECG shows early repolarization abnormality inferolaterally Condition: stable
== END 2018-12-10 10:39 | disposition home or self-care (01) ==
LOC: CATHEP 07:40
PROVIDERS: ATTEND Internal Medicine Clinical Cardiac Electrophysiology
DX: R55 Syncope and collapse (principal); R03.0 Elevated blood-pressure reading, without diagnosis of hypertension; Z88.0 Allergy status to penicillin; Z91.041 Radiographic dye allergy status; Z91.040 Latex allergy status
CPT/HCPCS: 93660

== ENCOUNTER 2019-11-23 12:21 | Observation (INO) | payer MEDICARE, OTHER ==
[2019-11-23 12:47] VITALS: RESP 18
--- NOTE | 2019-11-23 13:03 | ED ---
General Adult HPI - General Chief complaint: Syncope Stated complaint: syncope Time Seen by Provider: 11/23/19 12:35 Source: patient, RN notes reviewed, old records reviewed Mode of arrival: EMS Limitations: altered mental status - History of Present Illness Initial comments: This is a 69-year-old female who presents emergency Department after having had a syncopal episode in the shower. Patient does not recall what happened the shower. The son states he checks on her every 10 minutes or so and he went in the shower she was sitting on a stool slumped over and unresponsive. Son states took about 2 minutes before she was out waking talking to her. At that point time patient had no complaints. Patient states she does not have a headache she denies any neck pain. According to the son it did not appear that the patient had fallen. Patient denies any chest pain before after the incident. Patient denies any palpitations. Patient denies any shortness of breath per patient denies any recent fever chills or cough. Son states the shower was extremely hot. Son also states the patient does not eat or drink very well. Patient denies any abdominal pain patient denies any recent nausea vomiting diarrhea. Patient currently denies feeling lightheaded or dizzy. - Related Data Home Medications Medication Instructions Recorded Confirmed Gabapentin [Neurontin] 600 mg PO TID 11/13/17 11/23/19 HYDROcodone/APAP 10-325MG [[place] 1 tab PO QID PRN 11/13/17 11/23/19 10-325] Alendronate Sodium [Fosamax] 70 mg PO WE 11/23/19 11/23/19 Aspirin EC [Ecotrin Low Dose] 81 mg PO DAILY 11/23/19 11/23/19 Donepezil HCl [Aricept] 10 mg PO HS 11/23/19 11/23/19 Folic Acid 1 mg PO DAILY 11/23/19 11/23/19 Lisinopril [Zestril] 2.5 mg PO DAILY 11/23/19 11/23/19 Rivaroxaban [Xarelto] 20 mg PO DAILY 11/23/19 11/23/19 Sennosides/Docusate Sodium 1 tab PO HS 11/23/19 11/23/19 [Senna-S Laxative Tablet] Simvastatin [Zocor] 20 mg PO HS 11/23/19 11/23/19 Thiamine [Vitamin B-1] 100 mg PO DAILY 11/23/19 11/23/19 levETIRAcetam [Keppra] 750 mg PO Q12HR 11/23/19 11/23/19 Allergies Allergy/AdvReac Type Severity Reaction Status Date / Time Iodinated Contrast Media Allergy Rash/Hives Verified 11/23/19 14:11 [Iodinated Contrast- Oral and IV Dye] Penicillins Allergy Rash/Hives Verified 11/23/19 14:11 Review of Systems ROS Statement: Those systems with pertinent positive or pertinent negative responses have been documented in the HPI. ROS Other: All systems not noted in ROS Statement are negative. Past Medical History Past Medical History: Dementia Additional Past Medical History / Comment(s): chronic back pain, RA, vascular problems. History of Any Multi-Drug Resistant Organisms: None Reported Past Surgical History: Section, Cholecystectomy, Hernia Repair, Orthopedic Surgery Past Psychological History: No Psychological Hx Reported Smoking Status: Former smoker Past Alcohol Use History: Occasional Past Drug Use History: Marijuana General Exam - General Exam Comments Initial Comments: GENERAL: Patient is well-developed and well-nourished. Patient is nontoxic and well- hydrated and is in no acute distress. ENT: Neck is soft and supple. No significant lymphadenopathy is noted. Oropharynx is clear. Moist mucous membranes. Neck has full range of motion without eliciting any pain. EYES: The sclera were anicteric and conjunctiva were pink and moist. Extraocular movements were intact and pupils were equal round and reactive to light. Eyelids were unremarkable. PULMONARY: Unlabored respirations. Good breath sounds bilaterally. No audible rales rhonchi or wheezing was noted. CARDIOVASCULAR: There is a regular rate and rhythm without any murmurs gallops or rubs. ABDOMEN: Soft and nontender with normal bowel sounds. No palpable organomegaly was noted. There is no palpable pulsatile mass. SKIN: Skin is clear with no lesions or rashes and otherwise unremarkable. NEUROLOGIC: Patient is alert and oriented x3. Cranial nerves II through XII are grossly int act. Motor and sensory are also intact. Normal speech, volume and content. Symmetrical smile. MUSCULOSKELETAL: Normal extremities with adequate strength and full range of motion. No lower extremity swelling or edema. No calf tenderness. LYMPHATICS: No significant lymphadenopathy is noted PSYCHIATRIC: Normal psychiatric evaluation. Limitations: altered mental status Course Vital Signs 11/23/19 11/23/19 11/23/19 12:32 13:00 14:00 Temperature 98.2 F Pulse Rate 61 61 Pulse Rate [ 65 Sitting Pulse Oximetery] Pulse Rate [ 74 Standing Pulse Oximetery] Pulse Rate [ 60 Supine Pulse Oximetery] Respiratory 18 18 Rate Blood Pressure 182/83 148/68 Blood Pressure 159/86 [Right Arm Sitting] Blood Pressure 152/85 [Right Arm Standing] Blood Pressure 159/88 [Right Arm Supine] O2 Sat by Pulse 99 97 Oximetry Medical Decision Making - Medical Decision Making EKG shows sinus rhythm at 60 bpm DC interval 152 QRS is 70 QT interval 446 QTC is 446. Patient's EKG shows no ST segment elevation or depression or T-wave abnormality is noted. Patient continued to feel weak in the emergency department did not feel comfortable going home at this point time. Spoke with Dr. Schaffer he agreed to admit the patient admitted the patient wrote admitting orders. - Lab Data Result diagrams: 11/23/19 12:54 11/23/19 12:54 Lab Results 11/23/19 11/23/19 11/23/19 Range/Units 12:54 12:54 12:54 WBC 4.3 (3.8-10.6) k/uL RBC 4.29 (3.80-5.40) m/uL Hgb 13.3 (11.4-16.0) gm/dL Hct 41.3 (34.0-46.0) % MCV 96.3 (80.0-100.0) fL MCH 31.1 (25.0-35.0) pg MCHC 32.3 (31.0-37.0) g/dL RDW 12.6 (11.5-15.5) % Plt Count 193 (150-450) k/uL Neutrophils % 81 % Lymphocytes % 10 % Monocytes % 7 % Eosinophils % 1 % Basophils % 1 % Neutrophils # 3.5 (1.3-7.7) k/uL Lymphocytes # 0.4 L (1.0-4.8) k/uL Monocytes # 0.3 (0-1.0) k/uL Eosinophils # 0.0 (0-0.7) k/uL Basophils # 0.0 (0-0.2) k/uL PT 10.7 (9.0-12.0) sec INR 1.0 (<1.2) APTT 24.3 (22.0-30.0) sec Sodium 142 (137-145) mmol/L Potassium 3.9 (3.5-5.1) mmol/L Chloride 110 H (98-107) mmol/L Carbon Dioxide 24 (22-30) mmol/L Anion Gap 8 mmol/L BUN 19 H (7-17) mg/dL Creatinine 1.03 (0.52-1.04) mg/dL Est GFR (CKD-EPI)AfAm 63 (>60 ml/min/1.73 sqM) Est GFR (CKD-EPI)NonAf 55 (>60 ml/min/1.73 sqM) Glucose 92 (74-99) mg/dL Calcium 8.8 (8.4-10.2) mg/dL Magnesium 2.1 (1.6-2.3) mg/dL Total Bilirubin 0.9 (0.2-1.3) mg/dL AST 29 (14-36) U/L ALT 13 (4-34) U/L Alkaline Phosphatase 54 (38-126) U/L Troponin I (0.000-0.034) ng/mL Total Protein 6.4 (6.3-8.2) g/dL Albumin 4.0 (3.5-5.0) g/dL 11/23/19 Range/Units 12:54 WBC (3.8-10.6) k/uL RBC (3.80-5.40) m/uL Hgb (11.4-16.0) gm/dL Hct (34.0-46.0) % MCV (80.0-100.0) fL MCH (25.0-35.0) pg MCHC (31.0-37.0) g/dL RDW (11.5-15.5) % Plt Count (150-450) k/uL Neutrophils % % Lymphocytes % % Monocytes % % Eosinophils % % Basophils % % Neutrophils # (1.3-7.7) k/uL Lymphocytes # (1.0-4.8) k/uL Monocytes # (0-1.0) k/uL Eosinophils # (0-0.7) k/uL Basophils # (0-0.2) k/uL PT (9.0-12.0) sec INR (<1.2) APTT (22.0-30.0) sec Sodium (137-145) mmol/L Potassium (3.5-5.1) mmol/L Chloride (98-107) mmol/L Carbon Dioxide (22-30) mmol/L Anion Gap mmol/L BUN (7-17) mg/dL Creatinine (0.52-1.04) mg/dL Est GFR (CKD-EPI)AfAm (>60 ml/min/1.73 sqM) Est GFR (CKD-EPI)NonAf (>60 ml/min/1.73 sqM) Glucose (74-99) mg/dL Calcium (8.4-10.2) mg/dL Magnesium (1.6-2.3) mg/dL Total Bilirubin (0.2-1.3) mg/dL AST (14-36) U/L ALT (4-34) U/L Alkaline Phosphatase (38-126) U/L Troponin I <0.012 (0.000-0.034) ng/mL Total Protein (6.3-8.2) g/dL Albumin (3.5-5.0) g/dL Disposition Clinical Impression: Syncope Disposition: ADMITTED IP TO THIS [facility] Time of Disposition: 14:24
[2019-11-23 13:14] LABS: Basophils % (A) 1 %; Eosinophils % (A) 1 %; HCT 41.3 % (34.0-46.0); HGB 13.3 gm/dL (11.4-16.0); Lymphocytes # (A) 0.4 k/uL (1.0-4.8); Lymphocytes % (A) 10 %; MCH 31.1 pg (25.0-35.0); MCHC 32.3 g/dL (31.0-37.0); MCV 96.3 fL (80.0-100.0); Mean Platelet Volume 8.1; Monocytes # (A) 0.3 k/uL (0-1.0); Monocytes % (A) 7 %; Neutrophils # (A) 3.5 k/uL (1.3-7.7); Neutrophils % (A) 81 %; Platelet Count 193 k/uL (150-450); RBC 4.29 m/uL (3.80-5.40); RDW 12.6 % (11.5-15.5); WBC 4.3 k/uL (3.8-10.6)
[2019-11-23 13:25] LABS: Partial Thromboplastin Time 24.3 sec (22.0-30.0); Prothrombin Time 10.7 sec (9.0-12.0)
--- NOTE | 2019-11-23 13:25 | XR ---
EXAMINATION TYPE: XR chest 2V DATE OF EXAM: 11/23/2019 COMPARISON: 11/13/2017, chest CT 11/15/2017 HISTORY: Chest pain TECHNIQUE: Frontal and lateral views of the chest are obtained. FINDINGS: There is no focal air space opacity, pleural effusion, or pneumothorax seen. The cardiac silhouette size is within normal limits. The osseous structures are intact. There are prominent meggan g volumes which may be indicative of underlying COPD. An oval nodular density superimposed over the r oot of aorta on the lateral view which was not seen on prior exam measuring 17 mm. Aorta is dense. Th oracic spondylosis present. Apical pleural thickening is again seen. IMPRESSION: Indeterminate nodular density as described not seen on previous exams follow-up recommen ded. Emphysema.
[2019-11-23 13:26] LABS: Calcium 8.8 mg/dL (8.4-10.2); Magnesium 2.1 mg/dL (1.6-2.3); Potassium 3.9 mmol/L (3.5-5.1); Total Bilirubin 0.9 mg/dL (0.2-1.3); Total Protein 6.4 g/dL (6.3-8.2)
[2019-11-23] MEDS ORDERED: SODIUM CHLORIDE 0.9% 1,000 ML IV ONE (14:25)
[2019-11-23] MEDS ORDERED: ATORVASTATIN 10 MG TAB PO SCH (21:00)
[2019-11-23] MEDS ORDERED: SENNOSIDES-DOCUSATE SODIUM 1 EACH TAB PO SCH (21:00)
[2019-11-23] MEDS ORDERED: DONEPEZIL 10 MG TAB PO SCH (21:00)
[2019-11-23] MEDS: HYDROcodone/APAP 10-325MG 1 EACH TAB PO PRN (21:15)
--- NOTE | 2019-11-23 22:31 | P.HPIM ---
History of Present Illness H&P Date: 11/23/19 Chief Complaint: Syncope Patient is a 69-year-old female with a known history of dementia, chronic back pain currently on [place] 10 and Neurontin 600 mg 3 times a day, paroxysmal atrial fibrillation currently on anticoagulation with xarelto, hypertension, seizure disorder-last seizure was 2 years ago, history of peripheral vascular disease with left lower leg surgery at [facility], history of smoking quit 6 months ago and history of marijuana use came to ER after a syncopal episode while she was in the shower. Patient says that she she did have a syncopal episode when she was sitting on a stool and slumped over and was unresponsive for a few minutes. Patient is on checks on her every 10 minutes or so and went to the shower. Patient did not respond to minutes and EMS was called. By the time EMS arrived patient is more awake and oriented and was able to walk to the ambulance. No seizure-like activity was noted. Patient denied any complaints of dizziness or lightheadedness or chest pain prior to episode. Denied any headache or neck pain. Denied any fever or chills. Denied any recent illnesses. No complaints of shortness of breath. Patient's son states that the shower was extremely hot. Son also states the patient does not eat or drink very well. No recent illnesses or sick contacts. No nausea vomiting or diarrhea recently. Denied any abdominal pain. Patient does take [place] 10 and Neurontin for chronic back pain. Chest x-ray showed intermediate nodular density superimposed over the protocol aorta was not seen during previous imaging. Emphysema changes. EKG showed sinus bradycardia with heart rate in 60s Review of Systems Constitutional: Patient denies any fever or chills . No generalized weakness or weight loss. Abdomen: Patient denied nausea vomiting and diarrhea and abdominal pain. Cardiovascular: Patient denies any chest pain or short of breath no palpitations. Respiratory: patient denied any cough is from production. No shortness of breath Neurologic: Patient denied any numbness or tingling headache. Musculoskeletal: Patient denies any complaints of joint swelling or deformity. Skin: Negative Psychiatric: Negative Endocrine: No heat or cold intolerance. No recent weight gain. Genitourinary: No dysuria or hematuria. All other 14 point ROS negative except the above Past Medical History Past Medical History: Dementia Additional Past Medical History / Comment(s): chronic back pain, RA, vascular problems. History of Any Multi-Drug Resistant Organisms: None Reported Past Surgical History: Section, Cholecystectomy, Hernia Repair, Orthopedic Surgery Past Psychological History: No Psychological Hx Reported Smoking Status: Former smoker Past Alcohol Use History: Occasional Past Drug Use History: Marijuana - Past Family History Mother Family Medical History: Cancer Additional Family Medical History / Comment(s): breast cancer Father Family Medical History: Myocardial Infarction (PR) Sister(s) Family Medical History: Cancer Brother(s) Additional Family Medical History / Comment(s): for unknown reason Son(s) Family Medical History: Coronary Artery Disease (CAD), Hyperlipidemia, Hypertension Additional Family Medical History / Comment(s): arthritis, pituitary tumor, depression, anxiety, ankalosing spondilitis Daughter(s) Family Medical History: Cancer Additional Family Medical History / Comment(s): pancreatic Medications and Allergies Home Medications Medication Instructions Recorded Confirmed Type Gabapentin [Neurontin] 600 mg PO TID 11/13/17 11/23/19 History HYDROcodone/APAP 10-325MG [[place] 1 tab PO QID PRN 11/13/17 11/23/19 History 10-325] Alendronate Sodium [Fosamax] 70 mg PO WE 11/23/19 11/23/19 History Aspirin EC [Ecotrin Low Dose] 81 mg PO DAILY 11/23/19 11/23/19 History Donepezil HCl [Aricept] 10 mg PO HS 11/23/19 11/23/19 History Folic Acid 1 mg PO DAILY 11/23/19 11/23/19 History Lisinopril [Zestril] 2.5 mg PO DAILY 11/23/19 11/23/19 History Rivaroxaban [Xarelto] 20 mg PO DAILY 11/23/19 11/23/19 History Sennosides/Docusate Sodium 1 tab PO HS 11/23/19 11/23/19 History [Senna-S Laxative Tablet] Simvastatin [Zocor] 20 mg PO HS 11/23/19 11/23/19 History Thiamine [Vitamin B-1] 100 mg PO DAILY 11/23/19 11/23/19 History levETIRAcetam [Keppra] 750 mg PO Q12HR 11/23/19 11/23/19 History Allergies Allergy/AdvReac Type Severity Reaction Status Date / Time Iodinated Contrast Media Allergy Rash/Hives Verified 11/23/19 20:05 [Iodinated Contrast- Oral and IV Dye] Penicillins Allergy Rash/Hives Verified 11/23/19 20:05 Physical Exam Vitals: Vital Signs Temp Pulse Pulse Pulse Pulse Resp BP 11/23/19 16:00 65 18 150/78 11/23/19 14:00 61 18 148/68 11/23/19 13:00 65 74 60 11/23/19 12:32 98.2 F 61 18 182/83 BP BP BP Pulse Ox 11/23/19 16:00 99 11/23/19 14:00 97 11/23/19 13:00 159/86 152/85 159/88 11/23/19 12:32 99 Intake and Output 11/23/19 11/23/19 11/23/19 06:59 14:59 22:59 Other: Weight 47.174 kg PHYSICAL EXAMINATION: Patient is lying in the bed comfortably, no acute distress, awake alert and oriented.. HEENT: Normocephalic. Neck is supple. Pupils reactive. Nostrils clear. Oral cavity is moist. Ears reveal no drainage. Neck reveals no JVD, carotid bruits, or thyromegaly. CHEST EXAMINATION: Trachea is central. Symmetrical expansion. Bibasilar diminished air entry. Lung crews clear to auscultation and percussion. CARDIAC: Normal S1, S2 with no gallops. No murmurs ABDOMEN: Soft. Bowel sounds normal. No organomegaly. No abdominal bruits. Extremities: reveal no edema. No clubbing or cyanosis Neurologically awake, alert, oriented x3 with well-coordinated movements. No focal deficits noted Skin: No rash or skin lesions. Psychiatric: Coperative. Nonsuicidal Musculoskeletal: No joint swelling or deformity. Normal range of motion. Results CBC & Chem 7: 11/23/19 12:54 11/23/19 12:54 Labs: Abnormal Lab Results - Last 24 Hours (Table) 11/23/19 11/23/19 Range/Units 12:54 12:54 Lymphocytes # 0.4 L (1.0-4.8) k/uL Chloride 110 H (98-107) mmol/L BUN 19 H (7-17) mg/dL Thrombosis Risk Factor Assmnt - DVT/VTE Prophylaxis DVT/VTE Prophylaxis: Pharmacologic Prophylaxis ordered Assessment and Plan Assessment: Acute syncopal episode. Orthostatic vitals negative in the ER. Rule out arrhyt hmia/cardiac etiology versus narcotic pain medication use Sinus bradycardia Paroxysmal atrial fibrillation currently on xarelto at home. Not on beta blockers Chronic back pain History of rheumatoid arthritis Hypertension History of seizure disorder currently on antiepileptic medications at home Peripheral vascular disease with history of left lower reduction to vascular surgery at [facility] history of smoking quit 6 months back Emphysematous changes as per x-ray with possible underlying COPD Dementia History of marijuana use and occasionally alcohol use Plan: Patient will be continued on telemetry monitoring. Serial troponins and check TSH level. Will hold narcotic pain medications. Continue with home medications and cardiology was consulted. Further recommendations based on the clinical course. Discussed with her family at bedside in detail. Time with Patient: Greater than 30
[2019-11-24] MEDS ORDERED: NON FORMULARY DRUG (Alendronate Sodium [Fosamax] 70 MG) PO SCH (08:00)
[2019-11-24] MEDS ORDERED: LISINOPRIL 2.5 MG TAB PO SCH (09:00)
[2019-11-24] MEDS ORDERED: RIVAROXABAN 20 MG TAB PO SCH (09:00)
[2019-11-24] MEDS ORDERED: FOLIC ACID 1 MG TAB PO SCH (09:00)
[2019-11-24] MEDS ORDERED: THIAMINE 100 MG TAB PO SCH (09:00)
[2019-11-24] MEDS ORDERED: ASPIRIN 81 MG PO SCH (09:00)
--- NOTE | 2019-11-24 10:24 | P.CRDCN ---
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 She denies prior history of coronary artery disease does not follow with a enterprise security architect for any reason. We have been asked to see in consultation for syncope. The patient was seen and examined resting comfortably lying flat in bed in no acute distress. She states yesterday while taking a shower she suffered a slip and fall. She denies feeling dizzy, lightheaded, short of breath, sweaty, chest pain or palpitations. She states her son came into the bathroom and helped her up. she denies loss of consciousness. There is no family bedside during my exam. Given her history of dementia ER notes were evaluated and indicates that her son found her unresponsive in the shower. DIAGNOSTICS EKG reveals sinus mechanism with no acute ST or T-wave abnormalities. Chest xray indicates COPD. Laboratory reviewed, CBC unremarkable, d-dimer 0.46, sodium 142, potassium 3.9, creatinine 1.03, cardiac enzymes negative x3, TSH 1.08. Current cardiac medications include simvastatin 20 mg at bedtime, lisinopril 2.5 mg daily, aspirin 81 mg daily and Xarelto 20 mg daily. Most recent echocardiogram obtained in 2018 reveals preserved LV systolic function with ejection fraction 55-60%, mild TR. REVIEW OF SYSTEMS At the time of my exam: CONSTITUTIONAL: Denies fever or chills. CARDIOVASCULAR: Denies chest pain, shortness of breath, orthopnea, PND or pa lpitations. RESPIRATORY: Denies cough. GASTROINTESTINAL: Denies abdominal pain, diarrhea, constipation, nausea or vomiting. MUSCULOSKELETAL: Denies myalgias. NEUROLOGIC: Denies numbness, tingling or weakness. ENDOCRINE: Denies fatigue, weight change, polydipsia or polyurina. GENITOURINARY: Denies burning, hematuria or urgency with micturation. HEMATOLOGIC: Denies history of anemia or bleeding. PHYSICAL EXAMINATION Blood pressure 181/83 heart rate 69 afebrile and maintaining oxygen saturation on room air. CONSTITUTIONAL: No apparent distress. HEENT: Head is normocephalic. Pupils are equal, round. Sclerae anicteric. Mucous membranes of the mouth are moist. No JVD. No carotid bruit. CHEST EXAMINATION: Lungs are clear to auscultation. No chest wall tenderness is noted on palpation or with deep breathing. HEART EXAMINATION: Regular rate and rhythm. S1, S2 heard. No murmurs, gallops or rub. ABDOMEN: Soft, nontender. Positive bowel sounds. EXTREMITIES: 2+ peripheral pulses, no lower extremity edema and no calf tenderness. NEUROLOGIC EXAMINATION: Patient is awake, alert and oriented x3. ASSESSMENT Fall, unclear if LOC Hypertension Dyslipidemia History of lower extremity arterial occlusion maintained on long-term anticoagulation Dementia Former nicotine dependence PLAN An acute coronary event has been ruled out. Obtain 2D echocardiogram and doppler study to assess cardiac structure and function. Check for orthostatic changes. Increase lisinopril to 10 mg daily. Discontinue aspirin and continue xarelto. Telemetry tracings unremarkable for an acute arrhythmia. Unclear if there was LOC, pt denies. She also denies seizure activity. Ongoing medical management and evaluation. Thank you kindly for this consultation. Nurse Practitioner note has been reviewed, I agree with a documented findings and plan of care. Patient was seen and examined. Past Medical History Past Medical History: Dementia Additional Past Medical History / Comment(s): chronic back pain, RA, vascular problems. History of Any Multi-Drug Resistant Organisms: None Reported Past Surgical History: Section, Cholecystectomy, Hernia Repair, Orthopedic Surgery Additional Past Surgical History / Comment(s): left leg artery occluded/fixed 1 and a half years ago Past Anesthesia/Blood Transfusion Reactions: No Reported Reaction Past Psychological History: No Psychological Hx Reported Smoking Status: Former smoker Past Alcohol Use History: Occasional Past Drug Use History: Marijuana - Past Family History Mother Family Medical History: Cancer Additional Family Medical History / Comment(s): breast cancer Father Family Medical History: Myocardial Infarction ([place]) Sister(s) Family Medical History: Cancer Brother(s) Additional Family Medical History / Comment(s): for unknown reason Son(s) Family Medical History: Coronary Artery Disease (CAD), Hyperlipidemia, Hypertension Additional Family Medical History / Comment(s): arthritis, pituitary tumor, depression, anxiety, ankalosing spondilitis Daughter(s) Family Medical History: Cancer Additional Family Medical History / Comment(s): pancreatic Medications and Allergies Home Medications Medication Instructions Recorded Confirmed Type Gabapentin [Neurontin] 600 mg PO TID 11/13/17 11/23/19 History HYDROcodone/APAP 10-325MG [[place] 1 tab PO QID PRN 11/13/17 11/23/19 History 10-325] Alendronate Sodium [Fosamax] 70 mg PO WE 11/23/19 11/23/19 History Aspirin EC [Ecotrin Low Dose] 81 mg PO DAILY 11/23/19 11/23/19 History Donepezil HCl [Aricept] 10 mg PO HS 11/23/19 11/23/19 History Folic Acid 1 mg PO DAILY 11/23/19 11/23/19 History Lisinopril [Zestril] 2.5 mg PO DAILY 11/23/19 11/23/19 History Rivaroxaban [Xarelto] 20 mg PO DAILY 11/23/19 11/23/19 History Sennosides/Docusate Sodium 1 tab PO HS 11/23/19 11/23/19 History [Senna-S Laxative Tablet] Simvastatin [Zocor] 20 mg PO HS 11/23/19 11/23/19 History Thiamine [Vitamin B-1] 100 mg PO DAILY 11/23/19 11/23/19 History levETIRAcetam [Keppra] 750 mg PO Q12HR 11/23/19 11/23/19 History Allergies Allergy/AdvReac Type Severity Reaction Status Date / Time Iodinated Contrast Media Allergy Rash/Hives Verified 11/23/19 20:05 [Iodinated Contrast- Oral and IV Dye] Penicillins Allergy Rash/Hives Verified 11/23/19 20:05 Physical Exam Vitals: Vital Signs Temp Pulse Pulse Pulse Pulse Pulse Resp 11/24/19 03:11 97.5 F L 61 18 11/23/19 23:55 97.7 F 64 18 11/23/19 19:45 98.6 F 61 18 11/23/19 19:30 97.9 F 57 L 18 11/23/19 16:00 65 18 11/23/19 14:00 61 18 11/23/19 13:00 65 74 60 11/23/19 12:32 98.2 F 61 18 BP BP BP BP BP Pulse Ox 11/24/19 03:11 167/75 96 11/23/19 23:55 172/74 99 11/23/19 19:45 167/89 98 11/23/19 19:30 159/64 96 11/23/19 16:00 150/78 99 11/23/19 14:00 148/68 97 11/23/19 13:00 159/86 152/85 159/88 11/23/19 12:32 182/83 99 Intake and Output 11/23/19 11/24/19 11/24/19 22:59 06:59 14:59 Other: Voiding Method Toilet Toilet # Voids 2 2 Results 11/23/19 12:54 11/23/19 12:54 Cardiac Enzymes 11/23/19 11/23/19 11/23/19 Range/Units 12:54 12:54 23:27 AST 29 (14-36) U/L Troponin I <0.012 <0.012 (0.000-0.034) ng/mL 11/24/19 Range/Units 04:53 AST (14-36) U/L Troponin I <0.012 (0.000-0.034) ng/mL Coagulation 11/23/19 Range/Units 12:54 PT 10.7 (9.0-12.0) sec APTT 24.3 (22.0-30.0) sec CBC 11/23/19 Range/Units 12:54 WBC 4.3 (3.8-10.6) k/uL RBC 4.29 (3.80-5.40) m/uL Hgb 13.3 (11.4-16.0) gm/dL Hct 41.3 (34.0-46.0) % Plt Count 193 (150-450) k/uL Comprehensive Metabolic Panel 11/23/19 Range/Units 12:54 Sodium 142 (137-145) mmol/L Potassium 3.9 (3.5-5.1) mmol/L Chloride 110 H (98-107) mmol/L Carbon Dioxide 24 (22-30) mmol/L BUN 19 H (7-17) mg/dL Creatinine 1.03 (0.52-1.04) mg/dL Glucose 92 (74-99) mg/dL Calcium 8.8 (8.4-10.2) mg/dL AST 29 (14-36) U/L ALT 13 (4-34) U/L Alkaline Phosphatase 54 (38-126) U/L Total Protein 6.4 (6.3-8.2) g/dL Albumin 4.0 (3.5-5.0) g/dL Current Medications Generic Name Dose Route Start Last Admin Trade Name Freq PRN Reason Stop Dose Admin Hydrocodone Bitart/Acetaminophen 1 each 11/23/19 20:55 11/23/19 21:15 [place] 10 PO 1 each QID PRN Administration Pain Aspirin 81 mg 11/24/19 09:00 Aspirin PO DAILY [facility] Atorvastatin Calcium 10 mg 11/23/19 21:00 11/23/19 21:15 Lipitor PO 10 mg HS KOLE Administration Donepezil HCl 10 mg 11/23/19 21:00 11/23/19 21:15 Aricept PO 10 mg HS [facility] Administration Folic Acid 1 mg 11/24/19 09:00 Folic Acid PO DAILY [facility] Levetiracetam 750 mg 11/23/19 21:00 11/23/19 21:15 Keppra PO 750 mg Q12HR KOLE Administration Lisinopril 2.5 mg 11/24/19 09:00 Zestril PO DAILY [facility] Non-Formulary Medication 70 mg 11/24/19 08:00 Alendronate Sodium [Fosamax] PO WE [facility] Rivaroxaban 20 mg 11/24/19 09:00 Xarelto PO DAILY [facility] Senna/Docusate Sodium 1 each 11/23/19 21:00 11/23/19 21:19 Senokot-S PO Not Given HS [facility] Thiamine HCl 100 mg 11/24/19 09:00 Vitamin B-1 PO DAILY [facility] Intake and Output 11/23/19 11/24/19 11/24/19 22:59 06:59 14:59 Other: Voiding Method Toilet Toilet # Voids 2 2 11/23/19 12:54 11/23/19 12:54
[2019-11-24] MEDS ORDERED: LISINOPRIL 10 MG TAB PO SCH (10:30)
[2019-11-24] MEDS: HYDROcodone/APAP 10-325MG 1 EACH TAB PO PRN (11:04)
--- NOTE | 2019-11-24 11:28 | ECHOF ---
Referral Reason:near syncope MEASUREMENTS -------- HEIGHT: 162.6 cm WEIGHT: 47.2 kg BP: RVIDd: 4.6 cm (< 3.3) IVSd: 1.0 cm (0.6 - 1.1) LVIDd: 3.9 cm (3.9 - 5.3) LVPWd: 1.0 cm (0.6 - 1.1) IVSs: 1.4 cm LVIDs: 2.6 cm LVPWs: 1.1 cm LA Diam: 3.9 cm (2.7 - 3.8) Ao Diam: 3.1 cm (2.0 - 3.7) AV Cusp: 1.7 cm (1.5 - 2.6) MV EXCURSION: 14.317 mm (> 18.000) MV EF SLOPE: 40 mm/s (70 - 150) EPSS: 0.7 cm MV E [place]: 0.78 m/s MV DecT: 196 ms MV A [place]: 0.76 m/s MV E/A Ratio: 1.03 RAP: 5.00 mmHg RVSP: 29.49 mmHg FINDINGS -------- Sinus rhythm. This was a technically good study. LV size, wall thickness and systolic function are normal, with an EF greater than 55%. The left quirino tricular size is normal. Overall left ventricular systolic function is normal with, an EF between 5 5 - 60 %. The diastolic filling pattern is normal for the age of the patient 15.50. The right ventricle is normal in size. The left atrial size is normal. Normal LA size by volume 22+/-6 ml/m2. The right atrial size is normal. There is mild aortic valve sclerosis. There is no evidence of aortic regurgitation. Mild mitral annular calcification present. Mild mitral regurgitation is present. Mild tricuspid regurgitation present. Right ventricular systolic pressure is normal at < 35 mmHg. There is no evidence of pulmonary hypertension. There is no pulmonic regurgitation present. The aortic root size is normal. There is no pericardial effusion. CONCLUSIONS -------- 1. Sinus rhythm. 2. This was a technically good study. 3. LV size, wall thickness and systolic function are normal, with an EF greater than 55%. 4. The left ventricular size is normal. 5. Overall left ventricular systolic function is normal with, an EF between 55 - 60 %. 6. The diastolic filling pattern is normal for the age of the patient 15.50 7. The right ventricle is normal in size. 8. The left atrial size is normal. 9. Normal LA size by volume 22+/-6 ml/m2. 10. The right atrial size is normal. 11. There is mild aortic valve sclerosis. 12. Mild mitral annular calcification present. 13. Mild mitral regurgitation is present. 14. Mild tricuspid regurgitation present. 15. Right ventricular systolic pressure is normal at < 35 mmHg. 16. There is no evidence of pulmonary hypertension. 17. There is no pulmonic regurgitation present. 18. The aortic root size is normal. 19. There is no pericardial effusion. MANAGER SUMMER: Jessenia Martinez RDCS
[2019-11-24 11:42] VITALS: BP 185/75; PULSE 61; TEMP 97.6
[2019-11-24 14:01] VITALS: BMI 17.8
--- NOTE | 2019-12-07 22:19 | P.DS ---
Providers Date of admission: 11/23/19 14:25 Expected date of discharge: 11/24/19 Attending physician: Jo Schaffer Consults: 11/23/19 21:03 Consult Physician Routine Consulting Provider: Cody Mitchell Consult Reason/Comments: syncope Do you want consulting provider notified?: Yes, Notify in am Primary care physician: Ramila Farr Hospital Course: Discharge Diagnosis Acute syncopal episode. unclear if LOC. Orthostatic vitals negative in the ER. Ruled out arrhythmia/cardiac etiology versus narcotic pain medication use Sinus bradycardia Paroxysmal atrial fibrillation currently on xarelto at home. Not on beta blockers Chronic back pain History of rheumatoid arthritis uncontrolled Hypertension History of seizure disorder currently on antiepileptic medications at home Peripheral vascular disease with history of left lower reduction to vascular surgery at [facility] history of smoking quit 6 months back Emphysematous changes as per x-ray with possible underlying COPD Dementia History of marijuana use and occasionally alcohol use Hospital course. Patient is a 69-year-old female with a known history of dementia, chronic back pain currently on [place] 10 and Neurontin 600 mg 3 times a day, paroxysmal atrial fibrillation currently on anticoagulation with xarelto, hypertension, seizure disorder-last seizure was 2 years ago, history of peripheral vascular disease with left lower leg surgery at [facility], history of smoking quit 6 months ago and history of marijuana use came to ER after a syncopal episode while she was in the shower. Patient says that she she did have a syncopal episode when she was sitting on a stool and slumped over and was unresponsive for a few minutes. Patient is on checks on her every 10 minutes or so and went to the shower. Patient did not respond to minutes and EMS was called. By the time EMS arrived patient is more awake and oriented and was able to walk to the ambulance. No seizure-like activity was noted. Patient denied any complaints of dizziness or lightheadedness or chest pain prior to episode. Denied any headache or neck pain. Denied any fever or chills. Denied any recent illnesses. No complaints of shortness of breath. Patient's son states that the shower was extremely hot. Son also states the patient does not eat or drink very well. No recent illnesses or sick contacts. No nausea vomiting or diarrhea recently. Denied any abdominal pain. Patient does take [place] 10 and Neurontin for chronic back pain. Chest x-ray showed intermediate nodular density superimposed over the protocol aorta was not seen during previous imaging. Emphysema changes. EKG showed sinus bradycardia with heart rate in 60s Patient was continued on telemetry monitoring. Serial troponins and TSH level WNL. Will hold narcotic pain medications. Pt. was seen by cardiology. Discussed with her family at bedside in detail. maintained on long-term anticoagulation Pt. Denied any complaints of dizziness or lightheadedness now. No complaints of chest pain or shortness of breath. 2D echocardiogram showed normal ejection fraction. No further recommendations from cardiology. Patient is being discharged home today. Lisinopril dose increased PHYSICAL EXAMINATION: Patient is lying in the bed comfortably, no acute distress, awake alert and oriented.. HEENT: Normocephalic. Neck is supple. Pupils reactive. Nostrils clear. Oral cavity is moist. Ears reveal no drainage. Neck reveals no JVD, carotid bruits, or thyromegaly. CHEST EXAMINATION: Trachea is central. Symmetrical expansion. Bibasilar diminished air entry. Lung crews clear to auscultation and percussion. CARDIAC: Normal S1, S2 with no gallops. No murmurs ABDOMEN: Soft. Bowel sounds normal. No organomegaly. No abdominal bruits. Extremities: reveal no edema. No clubbing or cyanosis Neurologically awake, alert, oriented x3 with well-coordinated movements. No focal deficits noted Skin: No rash or skin lesions. Psychiatric: Coperative. Nonsuicidal Musculoskeletal: No joint swelling or deformity. Normal range of motion. Vital Signs Temp Pulse Pulse Pulse Pulse Pulse Resp 11/24/19 03:11 97.5 F L 61 18 11/23/19 23:55 97.7 F 64 18 11/23/19 19:45 98.6 F 61 18 11/23/19 19:30 97.9 F 57 L 18 11/23/19 16:00 65 18 11/23/19 14:00 61 18 11/23/19 13:00 65 74 60 11/23/19 12:32 98.2 F 61 18 BP BP BP BP BP Pulse Ox 11/24/19 03:11 167/75 96 11/23/19 23:55 172/74 99 11/23/19 19:45 167/89 98 11/23/19 19:30 159/64 96 11/23/19 16:00 150/78 99 01/21/20 14:00 148/68 97 11/23/19 13:00 159/86 152/85 159/88 11/23/19 12:32 182/83 99 time taken >35 min Patient Condition at Discharge: Stable Plan - Discharge Summary Discharge Rx Participant: No New Discharge Prescriptions: Continue Simvastatin [Zocor] 20 mg PO HS Sennosides/Docusate Sodium [Senna-S Laxative Tablet] 1 tab PO DAILY levETIRAcetam [Keppra] 750 mg PO Q12H Donepezil HCl [Aricept] 10 mg PO DAILY Rivaroxaban [Xarelto] 20 mg PO DAILY Discontinued HYDROcodone/APAP 10-325MG [[place] 10-325] 1 tab PO QID PRN PRN Reason: Pain Gabapentin [Neurontin] 600 mg PO TID Lisinopril [Zestril] 2.5 mg PO DAILY Aspirin EC [Ecotrin Low Dose] 81 mg PO DAILY No Action Lisinopril [Zestril] 10 mg PO DAILY HYDROcodone/APAP 10-325MG [[place] 10-325] 1 tab PO QID Gabapentin [Neurontin] 300 mg PO TID Aspirin EC [Ecotrin Low Dose] 81 mg PO DAILY Ciprofloxacin HCl [Cipro] 500 mg PO BID 5 Days #10 tab guaiFENesin SYRUP 100MG/5ML [Robitussin] 200 mg PO Q6H PRN #180 ml PRN Reason: Cough Discharge Medication List Donepezil HCl [Aricept] 10 mg PO DAILY 11/23/19 [History] Rivaroxaban [Xarelto] 20 mg PO DAILY 11/23/19 [History] Sennosides/Docusate Sodium [Senna-S Laxative Tablet] 1 tab PO DAILY 11/23/19 [History] Simvastatin [Zocor] 20 mg PO HS 11/23/19 [History] levETIRAcetam [Keppra] 750 mg PO Q12H 11/23/19 [History] Aspirin EC [Ecotrin Low Dose] 81 mg PO DAILY 11/28/19 [History] Gabapentin [Neurontin] 300 mg PO TID 11/28/19 [History] HYDROcodone/APAP 10-325MG [[place] 10-325] 1 tab PO QID 11/28/19 [History] Lisinopril [Zestril] 10 mg PO DAILY 11/28/19 [History] Ciprofloxacin HCl [Cipro] 500 mg PO BID 5 Days #10 tab 12/02/19 [Rx] guaiFENesin SYRUP 100MG/5ML [Robitussin] 200 mg PO Q6H PRN #180 ml 12/02/19 [Rx] Follow up Appointment(s)/Referral(s): Ramila Farr MD [Primary Care Provider] - 1-2 days Patient Instructions/Handouts: Syncope (DC) Discharge Disposition: HOME SELF-CARE
== END 2019-11-24 15:10 | disposition home or self-care (01) ==
LOC: EC 12:21 → 1SOBS 14:25
PROVIDERS: ADMIT Internal Medicine; ATTEND Internal Medicine
DX: R55 Syncope and collapse (principal); R00.1 Bradycardia, unspecified; I48.0 Paroxysmal atrial fibrillation; F03.90 Unspecified dementia, unspecified severity, without behavioral disturbance, psychotic disturbance, mood disturbance, and anxiety; G89.29 Other chronic pain; M54.9 Dorsalgia, unspecified; M06.9 Rheumatoid arthritis, unspecified; J43.9 Emphysema, unspecified; I10 Essential (primary) hypertension; G40.909 Epilepsy, unspecified, not intractable, without status epilepticus; I73.9 Peripheral vascular disease, unspecified; Z90.49 Acquired absence of other specified parts of digestive tract; Z87.891 Personal history of nicotine dependence; W19.XXXA Unspecified fall, initial encounter; Z79.891 Long term (current) use of opiate analgesic; Z79.899 Other long term (current) drug therapy; Z79.01 Long term (current) use of anticoagulants; Z79.82 Long term (current) use of aspirin; Z91.041 Radiographic dye allergy status; Z88.0 Allergy status to penicillin; Z80.3 Family history of malignant neoplasm of breast; Z80.8 Family history of malignant neoplasm of other organs or systems; Z82.49 Family history of ischemic heart disease and other diseases of the circulatory system; Z83.430 Family history of elevated lipoprotein(a); Z81.8 Family history of other mental and behavioral disorders; Z82.61 Family history of arthritis
CPT/HCPCS: 93005 ×2; 96361 ×3; 96360; 99285; 36415; 93306; 85379; 80053; 84443; 83735; 84484 ×2; 85025; 85610; 85730; 71046; G0378 ×2

== ENCOUNTER → 2019-11-26 | Outpatient (CLI) | payer MEDICARE, OTHER ==
--- NOTE | 2019-11-29 08:27 | USB ---
Reason for exam: additional evaluation requested from abnormal screening. History: Patient is postmenopausal. Family history of premenopausal breast cancer in mother at age 60. Physical Findings: Nurse did not find any significant physical abnormalities on exam. US Breast Workup Limited RT Right limited breast ultrasound including focal area of concern, retroareolar and axilla demonstrates a 1.2 x 0.7 x 0.6cm lymph node at the axilla and a 0.2 x 0.2 x 0.2cm oval, cystic lesion at 10 o'clock. These results were verbally communicated with the patient and result sheet given to the patient on 11/26/19. ASSESSMENT: Benign, BI-RAD 2 RECOMMENDATION: Return to routine screening mammogram schedule for both breasts.
== END | disposition home or self-care (01) ==
LOC: RADUSWWP 14:21
PROVIDERS: ATTEND Internal Medicine
DX: R92.8 Other abnormal and inconclusive findings on diagnostic imaging of breast (principal)

== ENCOUNTER 2019-11-28 11:45 | Inpatient (IN) | payer MEDICARE, OTHER ==
[2019-11-28] MEDS ORDERED: ACETAMINOPHEN TAB 325 MG TAB PO STA (12:08)
--- NOTE | 2019-11-28 12:12 | ED ---
General Adult HPI - General Chief complaint: Fever Stated complaint: Fever Time Seen by Provider: 11/28/19 12:04 Source: patient, family, RN notes reviewed Mode of arrival: wheelchair Limitations: no limitations - History of Present Illness Initial comments: Patient is a pleasant 69-year-old female presenting to the emergency department with family for cough and fever. Patient was discharged from the hospital for 5 days ago following a syncopal episode. Patient symptoms have progressively worsened since that time. Patient is not very active. Patient states she may be a little bit short of breath. Patient is a poor historian and majority of hi story comes from family. - Related Data Home Medications Medication Instructions Recorded Confirmed Alendronate Sodium [Fosamax] 70 mg PO WE 11/23/19 11/23/19 Donepezil HCl [Aricept] 10 mg PO HS 11/23/19 11/23/19 Folic Acid 1 mg PO DAILY 11/23/19 11/23/19 Rivaroxaban [Xarelto] 20 mg PO DAILY 11/23/19 11/23/19 Sennosides/Docusate Sodium 1 tab PO HS 11/23/19 11/23/19 [Senna-S Laxative Tablet] Simvastatin [Zocor] 20 mg PO HS 11/23/19 11/23/19 Thiamine [Vitamin B-1] 100 mg PO DAILY 11/23/19 11/23/19 levETIRAcetam [Keppra] 750 mg PO Q12HR 11/23/19 11/23/19 Previous Rx's Medication Instructions Recorded Gabapentin [Neurontin] 300 mg PO TID #0 11/24/19 HYDROcodone/APAP 10-325MG [[place] 1 tab PO Q12HR PRN #0 11/24/19 10-325] Lisinopril [Zestril] 10 mg PO DAILY #30 tab 11/24/19 Allergies Allergy/AdvReac Type Severity Reaction Status Date / Time Iodinated Contrast Media Allergy Rash/Hives Verified 11/28/19 11:57 [Iodinated Contrast- Oral and IV Dye] Penicillins Allergy Rash/Hives Verified 11/28/19 11:57 Review of Systems ROS Statement: Those systems with pertinent positive or pertinent negative responses have been documented in the HPI. ROS Other: All systems not noted in ROS Statement are negative. Constitutional: Reports: fever, chills Eyes: Denies: eye pain ENT: Denies: ear pain Respiratory: Reports: cough Cardiovascular: Denies: chest pain Endocrine: Reports: fatigue Gastrointestinal: Denies: abdominal pain Genitourinary: Denies: dysuria Musculoskeletal: Denies: back pain Skin: Denies: rash Neurological: Denies: headache Past Medical History Past Medical History: Dementia Additional Past Medical History / Comment(s): chronic back pain, RA, vascular problems. History of Any Multi-Drug Resistant Organisms: None Reported Past Surgical History: Section, Cholecystectomy, Hernia Repair, Orthopedic Surgery Additional Past Surgical History / Comment(s): left leg artery occluded/fixed 1 and a half years ago Past Anesthesia/Blood Transfusion Reactions: No Reported Reaction Past Psychological History: No Psychological Hx Reported Smoking Status: Former smoker Past Alcohol Use History: Occasional Past Drug Use History: Marijuana - Past Family History Mother Family Medical History: Cancer Additional Family Medical History / Comment(s): breast cancer Father Family Medical History: Myocardial Infarction ([place]) Sister(s) Family Medical History: Cancer Brother(s) Additional Family Medical History / Comment(s): for unknown reason Son(s) Family Medical History: Coronary Artery Disease (CAD), Hyperlipidemia, Hypertension Additional Family Medical History / Comment(s): arthritis, pituitary tumor, depression, anxiety, ankalosing spondilitis Daughter(s) Family Medical History: Cancer Additional Family Medical History / Comment(s): pancreatic General Exam Limitations: no limitations General appearance: alert, in no apparent distress Head exam: Present: normocephalic Eye exam: Present: normal appearance, PERRL ENT exam: Present: normal oropharynx Neck exam: Present: normal inspection Respiratory exam: Present: rales (mild right base) Cardiovascular Exam: Present: tachycardia GI/Abdominal exam: Present: soft. Absent: tenderness Extremities exam: Present: normal inspection Neurological exam: Present: alert, CN II-XII intact. Absent: motor sensory deficit Psychiatric exam: Present: flat affect Skin exam: Present: normal color Course Vital Signs 11/28/19 11:54 Temperature 100.3 F H Pulse Rate 108 H Respiratory 18 Rate Blood Pressure 180/76 O2 Sat by Pulse 95 Oximetry EKG Findings - EKG Comments: EKG Findings:: Sinus tachycardia 106. MD 132. QRS 74. QT 340. QTc 462. Normal axis. Normal QRS. Nonspecific ST-T. Medical Decision Making - Medical Decision Making Patient reevaluated. Patient and family updated. Case discussed with Dr. Barba, who will admit for Dr. Farr. - Lab Data Result diagrams: 11/28/19 12:44 11/28/19 12:44 Lab Results 11/28/19 11/28/19 11/28/19 Range/Units 12:44 12:44 12:44 WBC 5.9 (3.8-10.6) k/uL RBC 4.48 (3.80-5.40) m/uL Hgb 13.6 (11.4-16.0) gm/dL Hct 43.2 (34.0-46.0) % MCV 96.4 (80.0-100.0) fL MCH 30.4 (25.0-35.0) pg MCHC 31.6 (31.0-37.0) g/dL RDW 12.8 (11.5-15.5) % Plt Count 135 L (150-450) k/uL Neutrophils % 92 % Lymphocytes % 1 % Monocytes % 4 % Eosinophils % 1 % Basophils % 2 % Neutrophils # 5.4 (1.3-7.7) k/uL Lymphocytes # 0.0 L (1.0-4.8) k/uL Monocytes # 0.2 (0-1.0) k/uL Eosinophils # 0.1 (0-0.7) k/uL Basophils # 0.1 (0-0.2) k/uL Sodium 142 (137-145) mmol/L Potassium 3.9 (3.5-5.1) mmol/L Chloride 107 (98-107) mmol/L Carbon Dioxide 24 (22-30) mmol/L Anion Gap 11 mmol/L BUN 19 H (7-17) mg/dL Creatinine 0.78 (0.52-1.04) mg/dL Est GFR (CKD-EPI)AfAm 89 (>60 ml/min/1.73 sqM) Est GFR (CKD-EPI)NonAf 77 (>60 ml/min/1.73 sqM) Glucose 131 H (74-99) mg/dL Plasma Lactic Acid Jozef 1.7 (0.7-2.0) mmol/L Calcium 8.6 (8.4-10.2) mg/dL Total Bilirubin 0.9 (0.2-1.3) mg/dL AST 47 H (14-36) U/L ALT 22 (4-34) U/L Alkaline Phosphatase 52 (38-126) U/L Total Protein 6.7 (6.3-8.2) g/dL Albumin 4.1 (3.5-5.0) g/dL Urine Color Urine Appearance (Clear) Urine pH (5.0-8.0) Ur Specific [place] (1.001-1.035) Urine Protein (Negative) Urine Glucose (UA) (Negative) Urine Ketones (Negative) Urine Blood (Negative) Urine Nitrite (Negative) Urine Bilirubin (Negative) Urine Urobilinogen (<2.0) mg/dL Ur Leukocyte Esterase (Negative) Urine RBC (0-5) /hpf Urine WBC (0-5) /hpf Ur Squamous Epith Cells (0-4) /hpf Urine Bacteria (None) /hpf Urine Mucus (None) /hpf Influenza Type A RNA (Not Detectd) Influenza Type B (PCR) (Not Detectd) 11/28/19 11/28/19 Range/Units 12:44 13:37 WBC (3.8-10.6) k/uL RBC (3.80-5.40) m/uL Hgb (11.4-16.0) gm/dL Hct (34.0-46.0) % MCV (80.0-100.0) fL MCH (25.0-35.0) pg MCHC (31.0-37.0) g/dL RDW (11.5-15.5) % Plt Count (150-450) k/uL Neutrophils % % Lymphocytes % % Monocytes % % Eosinophils % % Basophils % % Neutrophils # (1.3-7.7) k/uL Lymphocytes # (1.0-4.8) k/uL Monocytes # (0-1.0) k/uL Eosinophils # (0-0.7) k/uL Basophils # (0-0.2) k/uL Sodium (137-145) mmol/L Potassium (3.5-5.1) mmol/L Chloride (98-107) mmol/L Carbon Dioxide (22-30) mmol/L Anion Gap mmol/L BUN (7-17) mg/dL Creatinine (0.52-1.04) mg/dL Est GFR (CKD-EPI)AfAm (>60 ml/min/1.73 sqM) Est GFR (CKD-EPI)NonAf (>60 ml/min/1.73 sqM) Glucose (74-99) mg/dL Plasma Lactic Acid J[place]ef (0.7-2.0) mmol/L Calcium (8.4-10.2) mg/dL Total Bilirubin (0.2-1.3) mg/dL AST (14-36) U/L ALT (4-34) U/L Alkaline Phosphatase (38-126) U/L Total Protein (6.3-8.2) g/dL Albumin (3.5-5.0) g/dL Urine Color Yellow Urine Appearance Cloudy H (Clear) Urine pH 6.0 (5.0-8.0) Ur Specific [place] 1.027 (1.001-1.035) Urine Protein 3+ H (Negative) Urine Glucose (UA) Negative (Negative) Urine Ketones 1+ H (Negative) Urine Blood Moderate H (Negative) Urine Nitrite Negative (Negative) Urine Bilirubin Negative (Negative) Urine Urobilinogen <2.0 (<2.0) mg/dL Ur Leukocyte Esterase Negative (Negative) Urine RBC 17 H (0-5) /hpf Urine WBC 10 H (0-5) /hpf Ur Squamous Epith Cells 2 (0-4) /hpf Urine Bacteria Few H (None) /hpf Urine Mucus Few H (None) /hpf Influenza Type A RNA Detected H (Not Detectd) Influenza Type B (PCR) Not Detected (Not Detectd) - Radiology Data Radiology results: image reviewed Disposition Clinical Impression: Influenza, Urinary tract infection Disposition: ADMITTED IP TO THIS HOSP Is patient prescribed a controlled substance at d/c from ED?: No Referrals: Ramila Farr MD [Primary Care Provider] - 1-2 days Decision Time: 13:57
[2019-11-28 12:56] LABS: Basophils # (A) 0.1 k/uL (0-0.2); Basophils % (A) 2 %; Eosinophils # (A) 0.1 k/uL (0-0.7); Eosinophils % (A) 1 %; HCT 43.2 % (34.0-46.0); HGB 13.6 gm/dL (11.4-16.0); Lymphocytes % (A) 1 %; MCH 30.4 pg (25.0-35.0); MCHC 31.6 g/dL (31.0-37.0); MCV 96.4 fL (80.0-100.0); Mean Platelet Volume 8.3; Monocytes # (A) 0.2 k/uL (0-1.0); Monocytes % (A) 4 %; Neutrophils # (A) 5.4 k/uL (1.3-7.7); Neutrophils % (A) 92 %; Platelet Count 135 k/uL (150-450); RBC 4.48 m/uL (3.80-5.40); RDW 12.8 % (11.5-15.5); WBC 5.9 k/uL (3.8-10.6)
[2019-11-28 13:06] LABS: Albumin 4.1 g/dL (3.5-5.0); Calcium 8.6 mg/dL (8.4-10.2); Potassium 3.9 mmol/L (3.5-5.1); Total Bilirubin 0.9 mg/dL (0.2-1.3); Total Protein 6.7 g/dL (6.3-8.2)
[2019-11-28] MEDS: SODIUM CHLORIDE 0.9% 1,000 ML IV SCH (13:07)
[2019-11-28 13:48] LABS: Appearance,Urine Cloudy (Clear); Bacteria,Urine Few /hpf; Bilirubin,Urine Negative (Negative); Blood,Urine Moderate (Negative); Color,Urine Yellow; Glucose,Urine (UA) Negative (Negative); Ketones,Urine 1+ (Negative); Leukocyte Esterase,Urine Negative (Negative); Mucus,Urine Few /hpf; Nitrite,Urine Negative (Negative); Protein,Urine 3+ (Negative); RBC,Urine 17 /hpf (0-5); Specific Gravity,Urine 1.027 (1.001-1.035); Squamous Epithelial Cell,Urine 2 /hpf (0-4); Urobilinogen,Urine <2.0 mg/dL (<2.0); WBC,Urine 10 /hpf (0-5)
[2019-11-28] MEDS ORDERED: IPRATROPIUM-ALBUTEROL 3 ML NEB INHALATION PRN (13:58)
[2019-11-28] MEDS ORDERED: cefTRIAXone IN SWFI 1,000 MG/10 ML SYRINGE IVP STA (13:58)
[2019-11-28] MEDS: OSELTAMIVIR 75 MG CAP PO SCH ×2 (14:07→22:04)
--- NOTE | 2019-11-28 14:11 | XR ---
EXAMINATION TYPE: XR chest 2V DATE OF EXAM: 11/28/2019 COMPARISON: 11/23/2019 HISTORY: Cough TECHNIQUE: FINDINGS: Heart is normal. Lungs are clear of consolidation. There is mild fibrotic changes at the nidia ng apices. There is no pleural effusion. There are no hilar masses. Thoracic aorta shows mild atherom atous change. IMPRESSION: No active cardiopulmonary disease. There is probably some COPD. No change.
[2019-11-28] MEDS: IPRATROPIUM-ALBUTEROL 3 ML NEB INHALATION SCH ×2 (14:17→20:31)
[2019-11-28] MEDS ORDERED: QUEtiapine 25 MG TAB PO PRN (21:00)
[2019-11-28] MEDS ORDERED: HYDROcodone/APAP 10-325MG 1 EACH TAB PO SCH (22:00)
[2019-11-28] MEDS: ATORVASTATIN 10 MG TAB PO SCH (22:04)
[2019-11-28] MEDS: GABAPENTIN 300 MG CAP PO SCH (22:04)
--- NOTE | 2019-11-29 00:24 | P.HPIM ---
History of Present Illness H&P Date: 11/28/19 Chief Complaint: Cough And congestion Patient is a 69-year-old female with a known history of dementia, chronic back pain currently on Fannin 10 and Neurontin 600 mg 3 times a day, hypertension, seizure disorder-last seizure was 2 years ago, history of peripheral vascular disease with left lower leg surgery at [facility] maintained on anticoagulation with xarelto,, history of smoking quit 6 months ago and history of marijuana use came to ER with the complaints of fever, cough and congestion. Patient was recently admitted to the hospital following a syncopal episode. Cardiac workup was negative. Patient was discharged home and was feeling well until 2 days ago patient started having cough congestion and upper respiratory fraction like symptoms. Patient symptoms have progressively worsened since that time. Patient is not very active. Patient states she may be a little bit short of breath. Patient is a poor historian and majority of history comes from family. Influenza A+ Chest x-ray showed no acute cardiopulmonary process. Possible underlying COPD EKG showed sinus tachycardia. WBC 5.9. Urinalysis showed cloudy and slightly elevated WBC cells. T-max 100.3 on admission patient was tachycardic as well. Review of Systems Constitutional: Patient does have fever. No chills. Generalized weakness and malaise. Abdomen: Patient denied nausea vomiting and diarrhea and abdominal pain. Cardiovascular: Patient denies any chest pain or short of breath no palpitations. Respiratory: Cough congestion and shortness of breath or sputum production Neurologic: Patient denied any numbness or tingling headache. Complete review of systems could not be obtained from the patient. Past Medical History Past Medical History: Dementia Additional Past Medical History / Comment(s): chronic back pain, RA, vascular problems. History of Any Multi-Drug Resistant Organisms: None Reported Past Surgical History: Section, Cholecystectomy, Hernia Repair, Orthopedic Surgery Additional Past Surgical History / Comment(s): left leg artery occluded/fixed 1 and a half years ago Past Anesthesia/Blood Transfusion Reactions: No Reported Reaction Past Psychological History: No Psychological Hx Reported Smoking Status: Former smoker Past Alcohol Use History: Occasional Past Drug Use History: Marijuana - Past Family History Mother Family Medical History: Cancer Additional Family Medical History / Comment(s): breast cancer Father Family Medical History: Myocardial Infarction (MS) Sister(s) Family Medical History: Cancer Brother(s) Additional Family Medical History / Comment(s): for unknown reason Son(s) Family Medical History: Coronary Artery Disease (CAD), Hyperlipidemia, Hypertension Additional Family Medical History / Comment(s): arthritis, pituitary tumor, depression, anxiety, ankalosing spondilitis Daughter(s) Family Medical History: Cancer Additional Family Medical History / Comment(s): pancreatic Medications and Allergies Home Medications Medication Instructions Recorded Confirmed Type Donepezil HCl [Aricept] 10 mg PO DAILY 11/23/19 11/28/19 History Rivaroxaban [Xarelto] 20 mg PO DAILY 11/23/19 11/28/19 History Sennosides/Docusate Sodium 1 tab PO DAILY 11/23/19 11/28/19 History [Senna-S Laxative Tablet] Simvastatin [Zocor] 20 mg PO HS 11/23/19 11/28/19 History levETIRAcetam [Keppra] 750 mg PO Q12H 11/23/19 11/28/19 History Aspirin EC [Ecotrin Low Dose] 81 mg PO DAILY 11/28/19 11/28/19 History Gabapentin [Neurontin] 300 mg PO TID 11/28/19 11/28/19 History HYDROcodone/APAP 10-325MG [Fannin 1 tab PO QID 11/28/19 11/28/19 History 10-325] Lisinopril [Zestril] 10 mg PO DAILY 11/28/19 11/28/19 History Allergies Allergy/AdvReac Type Severity Reaction Status Date / Time Iodinated Contrast Media Allergy Rash/Hives Verified 11/28/19 14:09 [Iodinated Contrast- Oral and IV Dye] Penicillins Allergy Rash/Hives Verified 11/28/19 14:09 Physical Exam Vitals: Vital Signs Temp Pulse Pulse Resp BP BP Pulse Ox 11/28/19 15:12 97.1 F L 87 22 140/62 92 L 11/28/19 14:30 89 20 11/28/19 14:17 83 16 11/28/19 14:09 89 18 123/83 97 11/28/19 11:54 100.3 F H 108 H 18 180/76 95 Intake and Output 11/28/19 11/28/19 11/28/19 06:59 14:59 22:59 Other: Weight 47.174 kg PHYSICAL EXAMINATION: Patient is lying in the bed comfortably, no acute distress, awake alert and oriented x1. Underlying dementia. HEENT: Normocephalic. Neck is supple. Pupils reactive. Nostrils clear. Oral cavity is moist. Ears reveal no drainage. Neck reveals no JVD, carotid bruits, or thyromegaly. CHEST EXAMINATION: Trachea is central. Symmetrical expansion. Diffuse rhonchi and coarse breath sounds. No wheezing. Nonlabored breathing.. CARDIAC: Normal S1, S2 with no gallops. No murmurs ABDOMEN: Soft. Bowel sounds normal. No organomegaly. No abdominal bruits. Extremities: reveal no edema. No clubbing or cyanosis Neurologically awake, alert, oriented x1 with well-coordinated movements. Patient does have underlying dementia. No focal deficits noted Skin: No rash or skin lesions. Psychiatric: Coperative. Could not be assessed completely. Musculoskeletal: No joint swelling or deformity. Normal range of motion. Results CBC & Chem 7: 11/28/19 12:44 11/28/19 12:44 Labs: Abnormal Lab Results - Last 24 Hours (Table) 11/28/19 11/28/19 11/28/19 Range/Units 12:44 12:44 12:44 Plt Count 135 L (150-450) k/uL Lymphocytes # 0.0 L (1.0-4.8) k/uL BUN 19 H (7-17) mg/dL Glucose 131 H (74-99) mg/dL AST 47 H (14-36) U/L Urine Appearance (Clear) Urine Protein (Negative) Urine Ketones (Negative) Urine Blood (Negative) Urine RBC (0-5) /hpf Urine WBC (0-5) /hpf Urine Bacteria (None) /hpf Urine Mucus (None) /hpf Influenza Type A RNA Detected H (Not Detectd) 11/28/19 Range/Units 13:37 Plt Count (150-450) k/uL Lymphocytes # (1.0-4.8) k/uL BUN (7-17) mg/dL Glucose (74-99) mg/dL AST (14-36) U/L Urine Appearance Cloudy H (Clear) Urine Protein 3+ H (Negative) Urine Ketones 1+ H (Negative) Urine Blood Moderate H (Negative) Urine RBC 17 H (0-5) /hpf Urine WBC 10 H (0-5) /hpf Urine Bacteria Few H (None) /hpf Urine Mucus Few H (None) /hpf Influenza Type A RNA (Not Detectd) Thrombosis Risk Factor Assmnt - DVT/VTE Prophylaxis DVT/VTE Prophylaxis: Pharmacologic Prophylaxis ordered Assessment and Plan Assessment: Acute influenza A infection Possible UTI Recent admission with syncopal episode. Cardiac workup was negative. TSH within normal limits. d-dimer not elevated. echocardiogram showed normal EF. No arrhythmia noted.. Chronic back pain. On Fannin 10 and Neurontin at home. History of rheumatoid arthritis Hypertension History of seizure disorder currently on antiepileptic medications at home Peripheral vascular disease with history of left lower reduction to vascular surgery at [facility]. maintained on long-term anticoagulation history of smoking quit 6 months back Emphysematous changes as per x-ray with possible underlying COPD Dementia History of marijuana use and occasionally alcohol use DVT prophylaxis. Patient is already on full anticoagulation Plan: Patient is being continued on Tamiflu. Continue with gentle hydration and monitor fluid status tomorrow. Patient was started on Unasyn tract infection with possible UTI. Follow-up urine culture report. Continue the home medications and limit narcotic pain medication use. Further recommendations based on the clinical course. Discussed with the family at bedside in detail. Time with Patient: Greater than 30
[2019-11-29] MEDS: SODIUM CHLORIDE 0.9% 1,000 ML IV SCH ×3 (04:38→20:12)
[2019-11-29] MEDS: ASPIRIN 81 MG PO SCH (08:37)
[2019-11-29] MEDS: SENNOSIDES-DOCUSATE SODIUM 1 EACH TAB PO SCH (08:38)
[2019-11-29] MEDS: OSELTAMIVIR 75 MG CAP PO SCH ×2 (08:38→20:03)
[2019-11-29] MEDS: LISINOPRIL 10 MG TAB PO SCH (08:38)
[2019-11-29] MEDS: GABAPENTIN 300 MG CAP PO SCH ×3 (08:38→21:53)
[2019-11-29] MEDS: DONEPEZIL 10 MG TAB PO SCH (08:38)
[2019-11-29] MEDS: RIVAROXABAN 20 MG TAB PO SCH (08:42)
[2019-11-29 09:30] LABS: Basophils % (A) 1 %; Eosinophils % (A) 0 %; HCT 42.5 % (34.0-46.0); HGB 13.2 gm/dL (11.4-16.0); Lymphocytes # (A) 0.3 k/uL (1.0-4.8); Lymphocytes % (A) 9 %; MCH 30.2 pg (25.0-35.0); MCV 97.4 fL (80.0-100.0); Monocytes # (A) 0.1 k/uL (0-1.0); Monocytes % (A) 4 %; Neutrophils # (A) 3.3 k/uL (1.3-7.7); Neutrophils % (A) 86 %; Platelet Count 106 k/uL (150-450); RBC 4.36 m/uL (3.80-5.40); RDW 12.6 % (11.5-15.5); WBC 3.8 k/uL (3.8-10.6)
[2019-11-29 09:52] LABS: African American GFR (CKD) >90 (>60 ml/min/1.73 sqM); Anion Gap 7 mmol/L; Blood Urea Nitrogen 21 mg/dL (7-17); Calcium 8.1 mg/dL (8.4-10.2); Carbon Dioxide 26 mmol/L (22-30); Chloride 108 mmol/L (98-107); Glucose 162 mg/dL (74-99); Non-African American GFR(CKD) >90 (>60 ml/min/1.73 sqM); Potassium 3.5 mmol/L (3.5-5.1); Sodium 141 mmol/L (137-145)
[2019-11-29] MEDS: IPRATROPIUM-ALBUTEROL 3 ML NEB INHALATION SCH ×4 (11:15→19:08)
--- NOTE | 2019-11-29 15:38 | P.PN ---
Subjective Progress Note Date: 11/29/19 Principal diagnosis: Patient is a 69-year-old female with a known history of dementia, chronic back pain currently on Pedro 10 and Neurontin 600 mg 3 times a day, hypertension, sei zure disorder-last seizure was 2 years ago, history of peripheral vascular disease with left lower leg surgery at [facility] maintained on anticoagulation with xarelto,, history of smoking quit 6 months ago and history of marijuana use came to ER with the complaints of fever, cough and congestion. Patient was recently admitted to the hospital following a syncopal episode. Cardiac workup was negative. Patient was discharged home and was feeling well until 2 days ago patient started having cough congestion and upper respiratory fraction like symptoms. Patient symptoms have progressively worsened since that time. Patient is not very active. Patient states she may be a little bit short of breath. Patient is a poor historian and majority of history comes from family. Influenza A+ Chest x-ray showed no acute cardiopulmonary process. Possible underlying COPD EKG showed sinus tachycardia. WBC 5.9. Urinalysis showed cloudy and slightly elevated WBC cells. T-max 100.3 on admission patient was tachycardic as well. 11/29/2019 Recent is lying in bed appears to be in no acute distress. Patient is currently on 3 L of oxygen via nasal cannula as she continues to have coughing spells and shortness of breath with exertion. Multiple family members at the bedside asking to speak with case management or social work about possible subacute rehab for some physical therapy for strength and mobility. She currently lives with her son who is home sick at this time. Family is concerned that she has not getting the care that she needs at home. Currently patient denies any chest pain or palpitations. Patient is afebrile. Patient denies any nausea or vomiting and is tolerating diet. Patient is currently on antibiotics in the form of ceftriaxone and will continue at this time. Will await urine culture finalization. Objective - Vital Signs Vital signs: Vital Signs Temp 97.8 F 11/29/19 07:00 Pulse 86 11/29/19 11:28 Resp 18 11/29/19 08:00 BP 143/82 11/29/19 07:00 Pulse Ox 94 L 11/29/19 07:00 Intake & Output 11/28/19 11/29/19 11/29/19 18:59 06:59 18:59 Weight 47.174 kg Other: # Voids 3 - Exam Patient is lying in the bed comfortably, no acute distress, awake alert and oriented x1. Underlying dementia. Temp is 97.8F, pulse is 99, respirations are 18, blood pressure is 143/82, oxygen saturation is 94% on 2 L via nasal cannula HEENT: Normocephalic. Neck is supple. Pupils reactive. Nostrils clear. Oral cavity is moist. Ears reveal no drainage. Neck reveals no JVD, carotid bruits, or thyromegaly. CHEST EXAMINATION: Trachea is central. Symmetrical expansion. Diffuse rhonchi and coarse breath sounds. No wheezing. Nonlabored breathing.. CARDIAC: Normal S1, S2 with no gallops. No murmurs ABDOMEN: Soft. Bowel sounds normal. No organomegaly. No abdominal bruits. Extremities: reveal no edema. No clubbing or cyanosis Neurologically awake, alert, oriented x1 with well-coordinated movements. Patient does have underlying dementia. No focal deficits noted Skin: No rash or skin lesions. Psychiatric: Cooperative. Could not be assessed completely. Musculoskeletal: No joint swelling or deformity. Normal range of motion. - Labs CBC & Chem 7: 11/29/19 08:58 11/29/19 08:58 Labs: Abnormal Lab Results - Last 24 Hours (Table) 11/28/19 11/28/19 11/29/19 Range/Units 12:44 13:37 08:58 Plt Count 106 L (150-450) k/uL Lymphocytes # 0.3 L (1.0-4.8) k/uL Chloride (98-107) mmol/L BUN (7-17) mg/dL Glucose (74-99) mg/dL Calcium (8.4-10.2) mg/dL Urine Appearance Cloudy H (Clear) Urine Protein 3+ H (Negative) Urine Ketones 1+ H (Negative) Urine Blood Moderate H (Negative) Urine RBC 17 H (0-5) /hpf Urine WBC 10 H (0-5) /hpf Urine Bacteria Few H (None) /hpf Urine Mucus Few H (None) /hpf Influenza Type A RNA Detected H (Not Detectd) 11/29/19 Range/Units 08:58 Plt Count (150-450) k/uL Lymphocytes # (1.0-4.8) k/uL Chloride 108 H (98-107) mmol/L BUN 21 H (7-17) mg/dL Glucose 162 H (74-99) mg/dL Calcium 8.1 L (8.4-10.2) mg/dL Urine Appearance (Clear) Urine Protein (Negative) Urine Ketones (Negative) Urine Blood (Negative) Urine RBC (0-5) /hpf Urine WBC (0-5) /hpf Urine Bacteria (None) /hpf Urine Mucus (None) /hpf Influenza Type A RNA (Not Detectd) Microbiology - Last 24 Hours (Table) 11/28/19 13:37 Urine Culture - Preliminary Urine,Catheterized Assessment and Plan Assessment: Acute influenza A infection Possible UTI Recent admission with syncopal episode. Cardiac workup was negative. TSH within normal limits. d-dimer not elevated. echocardiogram showed normal EF. No arrhythmia noted.. Chronic back pain. On Pedro 10 and Neurontin at home. History of rheumatoid arthritis Hypertension History of seizure disorder currently on antiepileptic medications at home Peripheral vascular disease with history of left lower reduction to vascular surgery at [facility]. maintained on long-term anticoagulation history of smoking quit 6 months back Emphysematous changes as per x-ray with possible underlying COPD Dementia History of marijuana use and occasionally alcohol use DVT prophylaxis. Patient is already on full anticoagulation Plan: Patient is being continued on Tamiflu. Continue with gentle hydration and monitor fluid status tomorrow. Will repeat a.m. labs. Patient will continue on IV antibiotics in the form of ceftriaxone. Follow-up urine culture report. Continue the home medications and limit narcotic pain medication use. Further recommendations based on the clinical course. Case management spoke with the patient's family and provider resources to [facility] homes. Will await PT/OT notes.
[2019-11-29] MEDS: ATORVASTATIN 10 MG TAB PO SCH (20:03)
--- NOTE | 2019-11-29 21:53 | PN ---
PROGRESS NOTE DATE OF SERVICE: 11/29/2019 ADDENDUM: This 69-year-old woman was admitted with acute influenza as well as possible syncopal episode. The patient also has UTI. Patient being closely monitored. PAST MEDICAL HISTORY: Reviewed. REVIEW OF SYSTEMS: CARDIOVASCULAR SYSTEM: No angina. RESPIRATORY: As mentioned earlier. GI: As mentioned earlier. : No dysuria. NERVOUS SYSTEM: Mild diffuse weakness. CURRENT MEDICATIONS: 1. Tavernier 10 mg q.i.d. p.r.n. 2. DuoNeb q.i.d. and p.r.n. 3. Aspirin 81 mg. 4. Lipitor 10 mg q.h.s. 5. Rocephin 1 g IV daily. 6. Aricept 10 mg. 7. Neurontin 300 mg p.o. t.i.d. 8. Keppra 750 mg p.o. b.i.d. 9. Zestril 10 mg p.o. daily. 10.Tamiflu 70 mg p.o. b.i.d. 11.Xarelto 10 mg. 12.Senokot-S p.r.n. Please refer to the rest of dictations for further details. MMODL / IJN: [id number] / MTDD
[2019-11-30 08:25] VITALS: BMI 17.3
[2019-11-30] MEDS: OSELTAMIVIR 75 MG CAP PO SCH ×2 (08:36→20:02)
[2019-11-30] MEDS: ASPIRIN 81 MG PO SCH (08:36)
[2019-11-30] MEDS: LISINOPRIL 10 MG TAB PO SCH (08:36)
[2019-11-30] MEDS: DONEPEZIL 10 MG TAB PO SCH (08:36)
[2019-11-30] MEDS: GABAPENTIN 300 MG CAP PO SCH ×3 (08:36→22:58)
[2019-11-30] MEDS: SENNOSIDES-DOCUSATE SODIUM 1 EACH TAB PO SCH (08:36)
[2019-11-30] MEDS: RIVAROXABAN 20 MG TAB PO SCH (08:37)
[2019-11-30] MEDS: IPRATROPIUM-ALBUTEROL 3 ML NEB INHALATION SCH ×4 (08:56→19:09)
[2019-11-30 09:18] LABS: Basophils % (A) 1 %; Eosinophils % (A) 1 %; HCT 40.2 % (34.0-46.0); HGB 12.5 gm/dL (11.4-16.0); Lymphocytes # (A) 0.4 k/uL (1.0-4.8); Lymphocytes % (A) 13 %; MCH 29.9 pg (25.0-35.0); MCHC 31.2 g/dL (31.0-37.0); Mean Platelet Volume 8.7; Monocytes # (A) 0.1 k/uL (0-1.0); Monocytes % (A) 5 %; Neutrophils # (A) 2.3 k/uL (1.3-7.7); Neutrophils % (A) 79 %; Platelet Count 130 k/uL (150-450); RBC 4.18 m/uL (3.80-5.40); RDW 12.6 % (11.5-15.5); WBC 2.9 k/uL (3.8-10.6)
[2019-11-30 09:39] LABS: African American GFR (CKD) >90 (>60 ml/min/1.73 sqM); Anion Gap 6 mmol/L; Blood Urea Nitrogen 19 mg/dL (7-17); Calcium 8.2 mg/dL (8.4-10.2); Carbon Dioxide 27 mmol/L (22-30); Chloride 110 mmol/L (98-107); Glucose 105 mg/dL (74-99); Non-African American GFR(CKD) 89 (>60 ml/min/1.73 sqM); Potassium 3.3 mmol/L (3.5-5.1); Sodium 143 mmol/L (137-145)
[2019-11-30] MEDS: SODIUM CHLORIDE 0.9% 1,000 ML IV SCH ×2 (12:21→22:57)
[2019-11-30] MEDS ORDERED: POTASSIUM CHLORIDE ER 20 MEQ TAB.ER PO STA (15:42)
--- NOTE | 2019-11-30 15:45 | P.PN ---
Subjective Progress Note Date: 11/30/19 Principal diagnosis: Patient is a 69-year-old female with a known history of dementia, chronic back pain currently on Moul[place] 10 and Neurontin 600 mg 3 times a day, hypertension, sei zure disorder-last seizure was 2 years ago, history of peripheral vascular disease with left lower leg surgery at [facility] maintained on anticoagulation with xarelto,, history of smoking quit 6 months ago and history of marijuana use came to ER with the complaints of fever, cough and congestion. Patient was recently admitted to the hospital following a syncopal episode. Cardiac workup was negative. Patient was discharged home and was feeling well until 2 days ago patient started having cough congestion and upper respiratory fraction like symptoms. Patient symptoms have progressively worsened since that time. Patient is not very active. Patient states she may be a little bit short of breath. Patient is a poor historian and majority of history comes from family. Influenza A+ Chest x-ray showed no acute cardiopulmonary process. Possible underlying COPD EKG showed sinus tachycardia. WBC 5.9. Urinalysis showed cloudy and slightly elevated WBC cells. T-max 100.3 on admission patient was tachycardic as well. 11/29/2019 Recent is lying in bed appears to be in no acute distress. Patient is currently on 3 L of oxygen via nasal cannula as she continues to have coughing spells and shortness of breath with exertion. Multiple family members at the bedside asking to speak with case management or social work about possible subacute rehab for some physical therapy for strength and mobility. She currently lives with her son who is home sick at this time. Family is concerned that she has not getting the care that she needs at home. Currently patient denies any chest pain or palpitations. Patient is afebrile. Patient denies any nausea or vomiting and is tolerating diet. Patient is currently on antibiotics in the form of ceftriaxone and will continue at this time. Will await urine culture finalization. 11/30/2019 This is a 69-year-old female who was recently admitted for acute influenza as well as a possible syncopal episode and was also found to have a urinary tract infection and is being closely monitored. Patient continues to have a cough and Robitussin was ordered. Patient currently is on room air intermittently although she still continues to become quite winded with exertion. Patient has been requiring 2-3 L of oxygen via nasal cannula. Urine cultures thus far remain negative and blood cultures have been negative as well. Patient will continue on IV antibiotics in the form of ceftriaxone at this time. Review of Systems: Cardiovascular: No reports of chest pain or palpitations Respiratory: Reports shortness of breath with exertion, reports cough GI: No reports of nausea, vomiting, or diarrhea : No reports of dysuria or retention Active Medications Hydrocodone Bitart/Acetaminophen (Moulton 10) 1 each PO QID PRN PRN Reason: Pain Albuterol/Ipratropium (Duoneb 0.5 Mg-3 Mg/3 Ml Soln) 3 ml INHALATION RT-QID [facility] Last Admin: 11/30/19 15:31 Dose: 3 ml Documented by: Albuterol/Ipratropium (Duoneb 0.5 Mg-3 Mg/3 Ml Soln) 3 ml INHALATION RT-Q4H PRN PRN Reason: Shortness Of Breath Or Wheezing Aspirin (Aspirin) 81 mg PO DAILY [facility] Last Admin: 11/30/19 08:36 Dose: 81 mg Documented by: Atorvastatin Calcium (Lipitor) 10 mg PO HS [facility] Last Admin: 11/29/19 20:03 Dose: 10 mg Documented by: Donepezil HCl (Aricept) 10 mg PO DAILY [facility] Last Admin: 11/30/19 08:36 Dose: 10 mg Documented by: Gabapentin (Neurontin) 300 mg PO TID [facility] Last Admin: 11/30/19 08:36 Dose: 300 mg Documented by: Guaifenesin (Robitussin) 200 mg PO Q6H PRN PRN Reason: Cough Sodium Chloride (Saline 0.9%) 1,000 mls @ 80 mls/hr IV .[id number] [facility] Last Admin: 11/30/19 12:21 Dose: Not Given Documented by: Ceftriaxone Sodium 1 gm/ (Sodium Chloride) 50 mls @ 100 mls/hr IVPB Q24H [facility] Last Admin: 11/29/19 15:43 Dose: 100 mls/hr Documented by: Levetiracetam (Keppra) 750 mg PO Q12H [facility] Last Admin: 11/30/19 05:56 Dose: 750 mg Documented by: Lisinopril (Zestril) 10 mg PO DAILY [facility] Last Admin: 11/30/19 08:36 Dose: 10 mg Documented by: Oseltamivir Phosphate (Tamiflu) 75 mg PO Q12HR [facility] Stop: 12/02/19 21:01 Last Admin: 11/30/19 08:36 Dose: 75 mg Documented by: Rivaroxaban (Xarelto) 20 mg PO DAILY [facility] Last Admin: 11/30/19 08:37 Dose: 20 mg Documented by: Senna/Docusate Sodium (Senokot-S) 1 each PO DAILY [facility] Last Admin: 11/30/19 08:36 Dose: 1 each Documented by: Objective - Vital Signs Vital signs: Vital Signs Temp 97.7 F 11/30/19 04:02 Pulse 87 11/30/19 04:02 Resp 20 11/30/19 04:02 BP 148/70 11/30/19 04:02 Pulse Ox 92 L 11/30/19 04:02 Intake & Output 11/29/19 11/30/19 11/30/19 18:59 06:59 18:59 Weight 47.174 kg Other: # Voids 1 2 - Exam Patient is lying in the bed comfortably, no acute distress, awake alert and oriented x1. Underlying dementia. Temp is 97.7F, pulse is 87, respirations are 20, blood pressure is 148/70, oxygen saturation is 92 % on room air HEENT: Normocephalic. Neck is supple. Pupils reactive. Nostrils clear. Oral cavi ty is moist. Ears reveal no drainage. Neck reveals no JVD, carotid bruits, or thyromegaly. CHEST EXAMINATION: Trachea is central. Symmetrical expansion. Diffuse rhonchi and coarse breath sounds. No wheezing. Nonlabored breathing.. CARDIAC: Normal S1, S2 with no gallops. No murmurs ABDOMEN: Soft. Bowel sounds normal. No organomegaly. No abdominal bruits. Extremities: reveal no edema. No clubbing or cyanosis Neurologically awake, alert, oriented x1 with well-coordinated movements. Patient does have underlying dementia. No focal deficits noted Skin: No rash or skin lesions. Psychiatric: Cooperative. Could not be assessed completely. Musculoskeletal: No joint swelling or deformity. Normal range of motion. - Labs CBC & Chem 7: 11/30/19 08:33 11/30/19 08:33 Labs: Abnormal Lab Results - Last 24 Hours (Table) 11/30/19 11/30/19 Range/Units 08:33 08:33 WBC 2.9 L (3.8-10.6) k/uL Plt Count 130 L (150-450) k/uL Lymphocytes # 0.4 L (1.0-4.8) k/uL Potassium 3.3 L (3.5-5.1) mmol/L Chloride 110 H (98-107) mmol/L BUN 19 H (7-17) mg/dL Glucose 105 H (74-99) mg/dL Calcium 8.2 L (8.4-10.2) mg/dL Microbiology - Last 24 Hours (Table) 11/28/19 12:44 Blood Culture - Preliminary Blood No Growth after 24 hours Assessment and Plan Assessment: Acute influenza A infection Possible UTI Recent admission with syncopal episode. Cardiac workup was negative. TSH within normal limits. d-dimer not elevated. echocardiogram showed normal EF. No arrhythmia noted.. Chronic back pain. On Moulton 10 and Neurontin at home. History of rheumatoid arthritis Hypertension History of seizure disorder currently on antiepileptic medications at home Peripheral vascular disease with history of left lower reduction to vascular surgery at [facility]. maintained on long-term anticoagulation history of smoking quit 6 months back Emphysematous changes as per x-ray with possible underlying COPD Dementia History of marijuana use and occasionally alcohol use DVT prophylaxis. Patient is already on full anticoagulation Plan: Recommend to continue current medications, management, and symptomatic treatment. Robitussin was added as patient continues to have a cough. Potassium today was 3.3 and will be replaced. Repeat a.m. labs. Patient currently remains on Tamiflu and IV antibiotics in the form of ceftriaxone and will continue at this time. Awaiting urine culture finalization. Further recommendations to follow based on the clinical course. Due to multiple complex medical issues prognosis is guarded.
[2019-11-30] MEDS: ATORVASTATIN 10 MG TAB PO SCH (20:02)
[2019-11-30] MEDS: guaiFENesin SYRUP 100MG/5ML 200 MG/10 ML CUP PO PRN (20:07)
[2019-11-30] MEDS: HYDROcodone/APAP 10-325MG 1 EACH TAB PO PRN (20:07)
[2019-12-01] MEDS: HYDROcodone/APAP 10-325MG 1 EACH TAB PO PRN (03:38)
[2019-12-01] MEDS: IPRATROPIUM-ALBUTEROL 3 ML NEB INHALATION SCH ×4 (08:33→21:44)
[2019-12-01] MEDS: LISINOPRIL 10 MG TAB PO SCH (09:43)
[2019-12-01] MEDS: OSELTAMIVIR 75 MG CAP PO SCH ×2 (09:43→20:47)
[2019-12-01] MEDS: ASPIRIN 81 MG PO SCH (09:44)
[2019-12-01] MEDS: RIVAROXABAN 20 MG TAB PO SCH (09:44)
[2019-12-01] MEDS: SENNOSIDES-DOCUSATE SODIUM 1 EACH TAB PO SCH (09:44)
[2019-12-01] MEDS: SODIUM CHLORIDE 0.9% 1,000 ML IV SCH (09:44)
[2019-12-01] MEDS: DONEPEZIL 10 MG TAB PO SCH (09:44)
[2019-12-01] MEDS: GABAPENTIN 300 MG CAP PO SCH ×3 (09:44→20:47)
[2019-12-01 12:05] LABS: African American GFR (CKD) >90 (>60 ml/min/1.73 sqM); Anion Gap 6 mmol/L; Blood Urea Nitrogen 19 mg/dL (7-17); Calcium 8.4 mg/dL (8.4-10.2); Carbon Dioxide 29 mmol/L (22-30); Chloride 109 mmol/L (98-107); Glucose 82 mg/dL (74-99); Non-African American GFR(CKD) 87 (>60 ml/min/1.73 sqM); Sodium 144 mmol/L (137-145)
[2019-12-01] MEDS: guaiFENesin SYRUP 100MG/5ML 200 MG/10 ML CUP PO PRN (13:46)
[2019-12-01] MEDS: CIPROFLOXACIN HCL 500 MG TAB PO SCH ×2 (13:46→20:47)
--- NOTE | 2019-12-01 16:03 | P.PN ---
Subjective Progress Note Date: 12/01/19 Principal diagnosis: Patient is a 69-year-old female with a known history of dementia, chronic back pain currently on [place] 10 and Neurontin 600 mg 3 times a day, hypertension, sei zure disorder-last seizure was 2 years ago, history of peripheral vascular disease with left lower leg surgery at [facility] maintained on anticoagulation with xarelto,, history of smoking quit 6 months ago and history of marijuana use came to ER with the complaints of fever, cough and congestion. Patient was recently admitted to the hospital following a syncopal episode. Cardiac workup was negative. Patient was discharged home and was feeling well until 2 days ago patient started having cough congestion and upper respiratory fraction like symptoms. Patient symptoms have progressively worsened since that time. Patient is not very active. Patient states she may be a little bit short of breath. Patient is a poor historian and majority of history comes from family. Influenza A+ Chest x-ray showed no acute cardiopulmonary process. Possible underlying COPD EKG showed sinus tachycardia. WBC 5.9. Urinalysis showed cloudy and slightly elevated WBC cells. T-max 100.3 on admission patient was tachycardic as well. 11/29/2019 Recent is lying in bed appears to be in no acute distress. Patient is currently on 3 L of oxygen via nasal cannula as she continues to have coughing spells and shortness of breath with exertion. Multiple family members at the bedside asking to speak with case management or social work about possible subacute rehab for some physical therapy for strength and mobility. She currently lives with her son who is home sick at this time. Family is concerned that she has not getting the care that she needs at home. Currently patient denies any chest pain or palpitations. Patient is afebrile. Patient denies any nausea or vomiting and is tolerating diet. Patient is currently on antibiotics in the form of ceftriaxone and will continue at this time. Will await urine culture finalization. 11/30/2019 This is a 69-year-old female who was recently admitted for acute influenza as well as a possible syncopal episode and was also found to have a urinary tract infection and is being closely monitored. Patient continues to have a cough and Robitussin was ordered. Patient currently is on room air intermittently although she still continues to become quite winded with exertion. Patient has been requiring 2-3 L of oxygen via nasal cannula. Urine cultures thus far remain negative and blood cultures have been negative as well. Patient will continue on IV antibiotics in the form of ceftriaxone at this time. Review of Systems: Cardiovascular: No reports of chest pain or palpitations Respiratory: Reports shortness of breath with exertion, reports cough GI: No reports of nausea, vomiting, or diarrhea : No reports of dysuria or retention 12/01/2019 Patient is sitting up in bed with family at the bedside. Patient continues to have a cough but states that she feels slightly better. Urine cultures finalized showing Klebsiella pneumonia and patient will be started on oral Cipro as she has no IV at this time. Continuing to encourage oral intake and patient states that she has been eating better. Patient is waiting to get in the shower. Patient denies any chest pain or palpitations. Patient has been afebrile. Patient denies any nausea or vomiting and is tolerating diet. Patient is currently saturating 92-93% on room air and intermittently uses oxygen. Will continue to monitor closely. Objective - Vital Signs Vital signs: Vital Signs Temp 98.0 F 12/01/19 14:18 Pulse 89 12/01/19 14:18 Resp 17 12/01/19 14:18 BP 150/74 12/01/19 14:18 Pulse Ox 92 L 12/01/19 14:18 Intake & Output 11/30/19 12/01/19 12/01/19 18:59 06:59 18:59 Intake Total 900 650 480 Balance 900 650 480 Weight 47.174 kg Intake: Oral 900 650 480 Other: # Voids 3 2 2 - Exam Patient is lying in the bed, awake alert and oriented x1. Underlying dementia. Temp is 96.9 F, pulse is 81, respirations are 18, blood pressure is 132/68, oxygen saturation is 93 % on room air HEENT: Normocephalic. Neck is supple. Pupils reactive. Nostrils clear. Oral cavity is moist. Ears reveal no drainage. Neck reveals no JVD, carotid bruits, or thyromegaly. CHEST EXAMINATION: Trachea is central. Symmetrical expansion. Diffuse rhonchi and coarse breath sounds. No wheezing. Nonlabored breathing.. CARDIAC: Normal S1, S2 with no gallops. No murmurs ABDOMEN: Soft. Bowel sounds normal. No organomegaly. No abdominal bruits. Extremities: reveal no edema. No clubbing or cyanosis Neurologically awake, alert, oriented x1 with well-coordinated movements. Patient does have underlying dementia. No focal deficits noted Skin: No rash or skin lesions. Psychiatric: Cooperative. Could not be assessed completely. Musculoskeletal: No joint swelling or deformity. Normal range of motion. - Labs CBC & Chem 7: 11/30/19 08:33 12/01/19 11:25 Labs: Abnormal Lab Results - Last 24 Hours (Table) 12/01/19 Range/Units 11:25 Chloride 109 H (98-107) mmol/L BUN 19 H (7-17) mg/dL Microbiology - Last 24 Hours (Table) 11/28/19 12:44 Blood Culture - Preliminary Blood No Growth after 72 hours 11/28/19 13:37 Urine Culture - Final Urine,Catheterized Klebsiella pneumoniae Assessment and Plan Assessment: Acute influenza A infection Possible UTI Recent admission with syncopal episode. Cardiac workup was negative. TSH within normal limits. d-dimer not elevated. echocardiogram showed normal EF. No arrhythmia noted.. Chronic back pain. On [place] 10 and Neurontin at home. History of rheumatoid arthritis Hypertension History of seizure disorder currently on antiepileptic medications at home Peripheral vascular disease with history of left lower reduction to vascular surgery at [facility]. maintained on long-term anticoagulation history of smoking quit 6 months back Emphysematous changes as per x-ray with possible underlying COPD Dementia History of marijuana use and occasionally alcohol use DVT prophylaxis. Patient is already on full anticoagulation Plan: Recommend to continue current medications, management, and symptomatic treat ment. Patient continues to have a cough. Potassium today was 4.0. Patient currently remains on Tamiflu. Urine culture finalized showing Klebsiella pneumonia and will be started on oral Cipro as she currently does not have an IV. Further recommendations to follow based on the clinical course. Due to multiple complex medical issues prognosis is guarded. Possible discharge in 24- 48 hours.
[2019-12-01] MEDS: ATORVASTATIN 10 MG TAB PO SCH (20:47)
[2019-12-02 05:50] VITALS: BP 148/75; RESP 18; TEMP 96.9
[2019-12-02] MEDS: IPRATROPIUM-ALBUTEROL 3 ML NEB INHALATION SCH ×2 (07:36→11:14)
[2019-12-02 07:51] VITALS: PULSE 77
[2019-12-02 09:29] LABS: Basophils % (A) 0 %; Eosinophils % (A) 1 %; HCT 39.6 % (34.0-46.0); HGB 12.4 gm/dL (11.4-16.0); Lymphocytes # (A) 0.6 k/uL (1.0-4.8); Lymphocytes % (A) 23 %; MCH 30.3 pg (25.0-35.0); MCHC 31.2 g/dL (31.0-37.0); Monocytes # (A) 0.1 k/uL (0-1.0); Monocytes % (A) 6 %; Neutrophils # (A) 1.7 k/uL (1.3-7.7); Neutrophils % (A) 69 %; Platelet Count 141 k/uL (150-450); RBC 4.08 m/uL (3.80-5.40); RDW 12.6 % (11.5-15.5); WBC 2.5 k/uL (3.8-10.6)
[2019-12-02 09:37] LABS: African American GFR (CKD) >90 (>60 ml/min/1.73 sqM); Anion Gap 7 mmol/L; Blood Urea Nitrogen 13 mg/dL (7-17); Calcium 8.2 mg/dL (8.4-10.2); Carbon Dioxide 28 mmol/L (22-30); Chloride 108 mmol/L (98-107); Glucose 122 mg/dL (74-99); Non-African American GFR(CKD) 90 (>60 ml/min/1.73 sqM); Potassium 3.8 mmol/L (3.5-5.1); Sodium 143 mmol/L (137-145)
[2019-12-02] MEDS: DONEPEZIL 10 MG TAB PO SCH (10:16)
[2019-12-02] MEDS: LISINOPRIL 10 MG TAB PO SCH (10:16)
[2019-12-02] MEDS: OSELTAMIVIR 75 MG CAP PO SCH (10:17)
[2019-12-02] MEDS: ASPIRIN 81 MG PO SCH (10:17)
[2019-12-02] MEDS: SENNOSIDES-DOCUSATE SODIUM 1 EACH TAB PO SCH (10:17)
[2019-12-02] MEDS: RIVAROXABAN 20 MG TAB PO SCH (10:17)
[2019-12-02] MEDS: CIPROFLOXACIN HCL 500 MG TAB PO SCH (10:17)
[2019-12-02] MEDS: GABAPENTIN 300 MG CAP PO SCH (10:26)
--- NOTE | 2019-12-02 13:56 | P.DS ---
Providers Date of admission: 11/28/19 13:58 Expected date of discharge: 12/02/19 Attending physician: Leah Lopez MD Primary care physician: Ramila Farr Hospital Course: Final diagnosis Acute influenza A infection Possible UTI Recent admission with syncopal episode Chronic back pain History of rheumatoid arthritis Hypertension History of seizure disorder Peripheral vascular disease with history of left lower reduction to vascular s urgery at [facility] history of smoking Emphysematous changes Dementia History of marijuana use and occasionally alcohol use DVT prophylaxis Discharge disposition Patient is being discharged in a stable condition with guarded prognosis to home with her son and will follow-up with primary care provider Dr. Farr upon discharge. Patient will continue with short course of oral antibiotics in the form of Cipro 500 mg twice daily for the next 5 days. Total time taken is 35 minutes. History of present illness This is a 69-year-old female who was recently admitted for cough, congestion, and upper respiratory infection like symptoms and was being closely monitored. Patient was found to have influenza A and was started on Tamiflu and has completed the course within her hospitalization. Patient was also found to have a urinary tract infection and urine cultures finalized showing Klebsiella pneumonia and will continue on a short course of oral antibiotics in the form of Cipro for the next 5 days. During hospitalization patient was treated with IV Rocephin and tolerated well. During hospitalization patient continue to have a cough and was short of breath with exertion. Today patient is currently on room air and states that her shortness of breath has improved. Patient has an occasional cough and will be going home with Robitussin as needed. Currently patient denies any chest pain, shortness of breath, or palpitations. Patient is afebrile. Patient denies any nausea or vomiting and has been tolerating diet. Patient denies any dysuria or retention and has been urinating with no issues. Patient eats very little and discussed with the patient about encouraging oral intake and possibly having ensure in between meals 2-3 times a day. Patient states that she eats better at home and does not care for the food here. Currently patient's condition is stable and is ready for discharge today. On exam vital signs are stable. Temp is 96.9F, pulse is 72, respirations are 18, blood pressure is 148/75, oxygen saturation is 95% on room air. Cardio S1, S2 are present. Respiratory system shows diminished breath sounds at the bases with some mild expiratory wheezing noted. Abdomen is soft, thin, nontender. Nervous system shows no focal deficits. Please refer to medication reconciliation sheet for a list of medications. Patient Condition at Discharge: Stable Plan - Discharge Summary Discharge Rx Participant: Yes New Discharge Prescriptions: New Ciprofloxacin HCl [Cipro] 500 mg PO BID 5 Days #10 tab guaiFENesin SYRUP 100MG/5ML [Robitussin] 200 mg PO Q6H PRN #180 ml PRN Reason: Cough Continue Simvastatin [Zocor] 20 mg PO HS Sennosides/Docusate Sodium [Senna-S Laxative Tablet] 1 tab PO DAILY levETIRAcetam [Keppra] 750 mg PO Q12H Donepezil HCl [Aricept] 10 mg PO DAILY Rivaroxaban [Xarelto] 20 mg PO DAILY Lisinopril [Zestril] 10 mg PO DAILY HYDROcodone/APAP 10-325MG [[place] 10-325] 1 tab PO QID Gabapentin [Neurontin] 300 mg PO TID Aspirin EC [Ecotrin Low Dose] 81 mg PO DAILY Discharge Medication List Donepezil HCl [Aricept] 10 mg PO DAILY 11/23/19 [History] Rivaroxaban [Xarelto] 20 mg PO DAILY 11/23/19 [History] Sennosides/Docusate Sodium [Senna-S Laxative Tablet] 1 tab PO DAILY 11/23/19 [History] Simvastatin [Zocor] 20 mg PO HS 11/23/19 [History] levETIRAcetam [Keppra] 750 mg PO Q12H 11/23/19 [History] Aspirin EC [Ecotrin Low Dose] 81 mg PO DAILY 11/28/19 [History] Gabapentin [Neurontin] 300 mg PO TID 11/28/19 [History] HYDROcodone/APAP 10-325MG [[place] 10-325] 1 tab PO QID 11/28/19 [History] Lisinopril [Zestril] 10 mg PO DAILY 11/28/19 [History] Ciprofloxacin HCl [Cipro] 500 mg PO BID 5 Days #10 tab 12/02/19 [Rx] guaiFENesin SYRUP 100MG/5ML [Robitussin] 200 mg PO Q6H PRN #180 ml 12/02/19 [Rx] Follow up Appointment(s)/Referral(s): Ramila Farr MD [Primary Care Provider] - 12/08/19 4:30 pm Patient Instructions/Handouts: Influenza (DC) Activity/Diet/Wound Care/Special Instructions: Activity limited until follow up continue current diet encourage fluids and rest continue with ensure drinks in between meals continue to avoid tobacco use or exposure to follow up with primary care provider upon discharge continue with antibiotics until finished Discharge Disposition: HOME SELF-CARE
== END 2019-12-02 14:35 | disposition home or self-care (01) | DRG 866 ==
LOC: EC 11:45 → 6NMEDSUR 13:58
PROVIDERS: ADMIT Internal Medicine; ATTEND Internal Medicine
DX: J10.89 Influenza due to other identified influenza virus with other manifestations (principal); N39.0 Urinary tract infection, site not specified; I73.9 Peripheral vascular disease, unspecified; F03.90 Unspecified dementia, unspecified severity, without behavioral disturbance, psychotic disturbance, mood disturbance, and anxiety; G40.909 Epilepsy, unspecified, not intractable, without status epilepticus; G89.29 Other chronic pain; M54.9 Dorsalgia, unspecified; I10 Essential (primary) hypertension; M06.9 Rheumatoid arthritis, unspecified; Z79.01 Long term (current) use of anticoagulants; Z79.82 Long term (current) use of aspirin; Z79.83 Long term (current) use of bisphosphonates; Z79.899 Other long term (current) drug therapy; Z80.3 Family history of malignant neoplasm of breast; Z81.8 Family history of other mental and behavioral disorders; Z82.49 Family history of ischemic heart disease and other diseases of the circulatory system; Z87.891 Personal history of nicotine dependence; J43.9 Emphysema, unspecified; Z88.0 Allergy status to penicillin; Z91.041 Radiographic dye allergy status
CPT/HCPCS: 36415; 71046; 80048; 80053; 81001; 83605; 85025; 87040; 87077; 87086; 87186; 87502; 93005; 94640; 94760; 96374; 99285

== ENCOUNTER 2020-01-24 22:34 | Emergency (ER) | payer MEDICARE, OTHER ==
[2020-01-24 22:43] VITALS: BP 169/73; PULSE 71; RESP 20; TEMP 98.2
--- NOTE | 2020-01-24 23:43 | XR ---
EXAMINATION TYPE: XR chest 1V portable DATE OF EXAM: 01/24/2020 COMPARISON: 11/28/2019 HISTORY: Short of breath TECHNIQUE: Single view FINDINGS: Heart is normal. Lungs are clear of infiltrate. There is pulmonary hyperinflation and randell ening of the diaphragm. Thoracic aorta is atheromatous. Bony thorax is intact. IMPRESSION: COPD. No active cardiopulmonary disease. No change.
[2020-01-24] MEDS ORDERED: predniSONE 20 MG TAB PO STA (23:46)
--- NOTE | 2020-01-25 00:09 | ED ---
General Adult HPI - General Chief complaint: Upper Respiratory Infection Stated complaint: Cough/Fever/SOB Time Seen by Provider: 01/24/20 22:40 Source: patient, family Mode of arrival: ambulatory Limitations: no limitations - History of Present Illness Initial comments: The patient is a 69-year-old female with past history of COPD who presents to the emergency department with reported cough and sore throat. She arrives with her son who provides majority of the history as she does have a history of dementia. The patient does report to a history of scratchy throat and nonproductive cough. States that her symptoms have been present for approximately one week. Reports a productive yellow sputum. Denies chest pain or shortness of breath. The patient quit smoking one year ago. Does have a history of COPD for which she has a nebulizer at home. States she's been doing her breathing treatments which does help improve her symptoms. Denies any fevers or chills. No nausea or vomiting. Denies any abdominal pain. There are no other alleviating, precipitating or modifying factors - Related Data Home Medications Medication Instructions Recorded Confirmed Donepezil HCl [Aricept] 10 mg PO DAILY 11/23/19 11/28/19 Rivaroxaban [Xarelto] 20 mg PO DAILY 11/23/19 11/28/19 Sennosides/Docusate Sodium 1 tab PO DAILY 11/23/19 11/28/19 [Senna-S Laxative Tablet] Simvastatin [Zocor] 20 mg PO HS 11/23/19 11/28/19 levETIRAcetam [Keppra] 750 mg PO Q12H 11/23/19 11/28/19 Aspirin EC [Ecotrin Low Dose] 81 mg PO DAILY 11/28/19 11/28/19 Gabapentin [Neurontin] 300 mg PO TID 11/28/19 11/28/19 HYDROcodone/APAP 10-325MG [[place] 1 tab PO QID 11/28/19 11/28/19 10-325] Lisinopril [Zestril] 10 mg PO DAILY 11/28/19 11/28/19 Previous Rx's Medication Instructions Recorded Ciprofloxacin HCl [Cipro] 500 mg PO BID 5 Days #10 tab 12/02/19 guaiFENesin SYRUP 100MG/5ML 200 mg PO Q6H PRN #180 ml 12/02/19 [Robitussin] Albuterol Nebulized [Ventolin 2.5 mg INHALATION Q4H #25 nebu 01/25/20 Nebulized] Azithromycin [Zithromax Z-pack] 0 mg PO DIRECTED #1 pack 01/25/20 predniSONE [Deltasone] 20 mg PO BID #10 tab 01/25/20 Allergies Allergy/AdvReac Type Severity Reaction Status Date / Time Iodinated Contrast Media Allergy Rash/Hives Verified 01/24/20 22:43 [Iodinated Contrast- Oral and IV Dye] Penicillins Allergy Rash/Hives Verified 01/24/20 22:43 Review of Systems ROS Statement: Those systems with pertinent positive or pertinent negative responses have been documented in the HPI. ROS Other: All systems not noted in ROS Statement are negative. Past Medical History Past Medical History: Dementia Additional Past Medical History / Comment(s): chronic back pain, RA, vascular problems. History of Any Multi-Drug Resistant Organisms: None Reported Past Surgical History: Section, Cholecystectomy, Hernia Repair, Orthopedic Surgery Additional Past Surgical History / Comment(s): left leg artery occluded/fixed 1 and a half years ago Past Anesthesia/Blood Transfusion Reactions: No Reported Reaction Past Psychological History: No Psychological Hx Reported Smoking Status: Former smoker Past Alcohol Use History: Occasional Past Drug Use History: Marijuana - Past Family History Mother Family Medical History: Cancer Additional Family Medical History / Comment(s): breast cancer Father Family Medical History: Myocardial Infarction ([place]) Sister(s) Family Medical History: Cancer Brother(s) Additional Family Medical History / Comment(s): for unknown reason Son(s) Family Medical History: Coronary Artery Disease (CAD), Hyperlipidemia, Hypertension Additional Family Medical History / Comment(s): arthritis, pituitary tumor, d epression, anxiety, ankalosing spondilitis Daughter(s) Family Medical History: Cancer Additional Family Medical History / Comment(s): pancreatic General Exam Limitations: no limitations General appearance: alert, in no apparent distress Head exam: Present: atraumatic, normocephalic, normal inspection Eye exam: Present: normal appearance, PERRL, EOMI. Absent: scleral icterus, conjunctival injection, periorbital swelling ENT exam: Present: normal exam, mucous membranes moist Neck exam: Present: normal inspection. Absent: tenderness, meningismus, lymphadenopathy Respiratory exam: Present: normal lung sounds bilaterally. Absent: respiratory distress, wheezes, rales, rhonchi, stridor Cardiovascular Exam: Present: regular rate, normal rhythm, normal heart sounds. Absent: systolic murmur, diastolic murmur, rubs, gallop, clicks GI/Abdominal exam: Present: soft, normal bowel sounds. Absent: distended, tenderness, guarding, rebound, rigid Extremities exam: Present: normal inspection, full ROM, normal capillary refill. Absent: tenderness, pedal edema, joint swelling, calf tenderness Back exam: Present: normal inspection Neurological exam: Present: alert, oriented X3, CN II-XII intact Psychiatric exam: Present: normal affect, normal mood Skin exam: Present: warm, dry, intact, normal color. Absent: rash Course Vital Signs 01/24/20 22:39 Temperature 98.2 F Pulse Rate 71 Respiratory 20 Rate Blood Pressure 169/73 O2 Sat by Pulse 97 Oximetry Medical Decision Making - Medical Decision Making Upon arrival the patient is placed in room 3. A thorough history and physical exam was performed. No signs of respiratory distress or increased work of breathing. The patient's lungs are clear bilaterally. I did perform an influenza swab and a chest x-ray. Influenza is negative. Chest x-ray demonstrates COPD with no active cardio pulmonary disease. Patient is reevaluated and continues to be afebrile without signs of respiratory distress. Discussed diagnosis, differential and treatment options. The patient is given 60 mg of prednisone here. I did discuss treatment with continued breathing treatments. She is provided with a refill of her albuterol. I also gave her prescription for prednisone 20 mg twice a day 5 days and azithromycin because of her smoking history. The patient agreed to this. Follow up with her doctor in 2-4 days. Return to the emergency room for any new or worsening symptoms. Patient was discharged home in stable condition - Lab Data Lab Results 01/24/20 Range/Units 23:00 Influenza Type A RNA Not Detected (Not Detectd) Influenza Type B (PCR) Not Detected (Not Detectd) Disposition Clinical Impression: Cough, COPD (chronic obstructive pulmonary disease) Disposition: HOME SELF-CARE Instructions (If sedation given, give patient instructions): Upper Respiratory Infection (ED) Additional Instructions: Please follow-up with your doctor in 2-4 days. Return to the emergency room for any new or worsening symptoms Prescriptions: predniSONE [Deltasone] 20 mg PO BID #10 tab Albuterol Nebulized [Ventolin Nebulized] 2.5 mg INHALATION Q4H #25 nebu Azithromycin [Zithromax Z-pack] 0 mg PO DIRECTED #1 pack Is patient prescribed a controlled substance at d/c from ED?: No Referrals: Ramila Farr MD [Primary Care Provider] - 1-2 days Time of Disposition: 00:09
== END 2020-01-25 00:28 | disposition home or self-care (01) ==
LOC: EC 22:34
DX: J44.9 Chronic obstructive pulmonary disease, unspecified (principal); F03.90 Unspecified dementia, unspecified severity, without behavioral disturbance, psychotic disturbance, mood disturbance, and anxiety; M06.9 Rheumatoid arthritis, unspecified; Z79.01 Long term (current) use of anticoagulants; Z79.899 Other long term (current) drug therapy; Z79.82 Long term (current) use of aspirin; Z88.0 Allergy status to penicillin; Z91.041 Radiographic dye allergy status; Z87.891 Personal history of nicotine dependence
CPT/HCPCS: 87502; 71045; 99283; J7512

== ENCOUNTER 2020-06-15 11:30 | Emergency (ER) | payer MEDICARE, OTHER ==
[2020-06-15 11:42] VITALS: RESP 18; TEMP 98.5
--- NOTE | 2020-06-15 11:58 | ED ---
General Adult HPI - General Chief complaint: Fall Stated complaint: Fall Time Seen by Provider: 06/15/20 11:50 Source: patient Limitations: altered mental status - History of Present Illness Initial comments: Dictation was produced using [email or web address] dictation software. please excuse any grammatical, word or spelling errors. This patient was cared for during a federal and state declared state of emergency secondary to Covid 19 Chief Complaint: 69-year-old female past medical history of dementia presents after fall. History of Present Illness: 69-year-old female presents after fall. Patient was brought in by EMS. Patient allegedly has dementia and had a witnessed fall. She fell striking the right side of her face. Supposedly there was brief loss of consciousness. Patient does take Rivaroxaban. Patient denies any vision changes. Denies neck pain. She does have right facial pain. Patient doesn't remember the fall. She does not know why she fell. The ROS documented in this emergency department record has been reviewed and confirmed by me. Those systems with pertinent positive or negative responses have been documented in the HPI. All other systems are other negative and/or noncontributory. PHYSICAL EXAM: General Impression: Alert and oriented x3, not in acute distress HEENT: Right-sided periorbital ecchymoses, no tarsal plate sparing. There is right scleral subconjunctival hemorrhage, extra-ocular movements intact, pupils equal and reactive to light bilaterally, mucous membranes moist. Cardiovascular: Heart regular rate and rhythm Chest: Able to complete full sentences, no retractions, no tachypnea Abdomen: abdomen soft, non-tender, non-distended, no organomegaly Musculoskeletal: Pulses present and equal in all extremities, no peripheral edema Motor: no focal deficits noted Neurological: CN II-XII grossly intact, no focal motor or sensory deficits noted Skin: Intact with no visualized rashes Psych: Normal affect and mood ED course: 69 y Old female presents after a ground-level fall. Vital signs upon arrival are within acceptable limits. There is concern the patient syncopized.Computed tomography scan of the face was obtained showing no acute fracture. There is generalized atrophy to the brain. No other acute intracranial abnormalities. Computed tomography scan of the face underlying nondisplaced fracture of the right orbital floor with some hemorrhage layering in the right maxillary sinus. There is also contusion seen at the right temporal area. Laboratory evaluation obtained per it CBC unremarkable. Coag panel is negative. Troponins negative. Urinalysis shows positive nitrites with 11 white blood cells concerning for urinary tract infection. Patient given 1 g of ceftriaxone. Patient's tetanus was updated. Son at bedside reports that he wants patient. Allegedly there was a loose board that she tripped over. Pelvis x-ray chest x- ray is unremarkable. Patient and motor without complications. Patient counseled on not blow her nose vigorously. Patient clear for discharge is given prescription for antibiotics. EKG interpretation: Ventricular rate 65, normal sinus rhythm,. Interval 134, QRS 70, QTc 447. No RI prolongation, no QTC prolongation, no ST or T-wave changes noted. EKG compared to November showing no changes. Overall, this EKG is unremarkable - Related Data Home Medications Medication Instructions Recorded Confirmed Donepezil HCl [Aricept] 10 mg PO DAILY 11/23/19 11/28/19 Rivaroxaban [Xarelto] 20 mg PO DAILY 11/23/19 11/28/19 Sennosides/Docusate Sodium 1 tab PO DAILY 11/23/19 11/28/19 [Senna-S Laxative Tablet] Simvastatin [Zocor] 20 mg PO HS 11/23/19 11/28/19 levETIRAcetam [Keppra] 750 mg PO Q12H 11/23/19 11/28/19 Aspirin EC [Ecotrin Low Dose] 81 mg PO DAILY 11/28/19 11/28/19 Gabapentin [Neurontin] 300 mg PO TID 11/28/19 11/28/19 HYDROcodone/APAP 10-325MG [[place] 1 tab PO QID 11/28/19 11/28/19 10-325] lisinopriL [Zestril] 10 mg PO DAILY 11/28/19 11/28/19 Previous Rx's Medication Instructions Recorded Albuterol Nebulized [Ventolin 2.5 mg INHALATION Q4H #25 nebu 01/25/20 Nebulized] Cephalexin [Keflex] 500 mg PO Q6HR 7 Days #28 cap 06/15/20 Allergies Allergy/AdvReac Type Severity Reaction Status Date / Time Iodinated Contrast Media Allergy Rash/Hives Verified 06/15/20 11:36 [Iodinated Contrast- Oral and IV Dye] Penicillins Allergy Rash/Hives Verified 06/15/20 11:36 Review of Systems ROS Statement: Those systems with pertinent positive or pertinent negative responses have been documented in the HPI. ROS Other: All systems not noted in ROS Statement are negative. Past Medical History Past Medical History: Dementia, Hyperlipidemia Additional Past Medical History / Comment(s): chronic back pain, RA, vascular problems. History of Any Multi-Drug Resistant Organisms: None Reported Past Surgical History: Section, Cholecystectomy, Hernia Repair, Orthopedic Surgery Additional Past Surgical History / Comment(s): left leg artery occluded/fixed 1 and a half years ago Past Anesthesia/Blood Transfusion Reactions: No Reported Reaction Past Psychological History: No Psychological Hx Reported Smoking Status: Current every day smoker Past Alcohol Use History: Occasional Past Drug Use History: Marijuana - Past Family History Mother Family Medical History: Cancer Additional Family Medical History / Comment(s): breast cancer Father Family Medical History: Myocardial Infarction ([place]) Sister(s) Family Medical History: Cancer Brother(s) Additional Family Medical History / Comment(s): for unknown reason Son(s) Family Medical History: Coronary Artery Disease (CAD), Hyperlipidemia, Hypertension Additional Family Medical History / Comment(s): arthritis, pituitary tumor, depression, anxiety, ankalosing spondilitis Daughter(s) Family Medical History: Cancer Additional Family Medical History / Comment(s): pancreatic General Exam Limitations: altered mental status Course Vital Signs 06/15/20 06/15/20 06/15/20 11:36 12:08 13:38 Temperature 98.5 F Pulse Rate 64 70 68 Respiratory 18 18 18 Rate Blood Pressure 147/64 128/56 129/63 O2 Sat by Pulse 94 L 96 96 Oximetry Medical Decision Making - Lab Data Result diagrams: 06/15/20 11:59 06/15/20 11:59 Lab Results 06/15/20 06/15/20 06/15/20 Range/Units 11:59 11:59 11:59 WBC 7.7 (3.8-10.6) k/uL RBC 4.33 (3.80-5.40) m/uL Hgb 13.5 (11.4-16.0) gm/dL Hct 43.0 (34.0-46.0) % MCV 99.2 (80.0-100.0) fL MCH 31.3 (25.0-35.0) pg MCHC 31.5 (31.0-37.0) g/dL RDW 12.3 (11.5-15.5) % Plt Count 217 (150-450) k/uL Neutrophils % 85 % Lymphocytes % 7 % Monocytes % 6 % Eosinophils % 1 % Basophils % 1 % Neutrophils # 6.6 (1.3-7.7) k/uL Lymphocytes # 0.6 L (1.0-4.8) k/uL Monocytes # 0.4 (0-1.0) k/uL Eosinophils # 0.1 (0-0.7) k/uL Basophils # 0.0 (0-0.2) k/uL PT 12.6 H (9.0-12.0) sec INR 1.2 H (<1.2) APTT 31.2 H (22.0-30.0) sec Sodium 140 (137-145) mmol/L Potassium 4.4 (3.5-5.1) mmol/L Chloride 110 H (98-107) mmol/L Carbon Dioxide 25 (22-30) mmol/L Anion Gap 5 mmol/L BUN 20 H (7-17) mg/dL Creatinine 0.69 (0.52-1.04) mg/dL Est GFR (CKD-EPI)AfAm >90 (>60 ml/min/1.73 sqM) Est GFR (CKD-EPI)NonAf 88 (>60 ml/min/1.73 sqM) Glucose 102 H (74-99) mg/dL Calcium 9.2 (8.4-10.2) mg/dL Magnesium 2.0 (1.6-2.3) mg/dL Total Bilirubin 0.8 (0.2-1.3) mg/dL AST 30 (14-36) U/L ALT 16 (4-34) U/L Alkaline Phosphatase 58 (38-126) U/L Troponin I (0.000-0.034) ng/mL Total Protein 6.1 L (6.3-8.2) g/dL Albumin 4.0 (3.5-5.0) g/dL Urine Color Urine Appearance (Clear) Urine pH (5.0-8.0) Ur Specific [place] (1.001-1.035) Urine Protein (Negative) Urine Glucose (UA) (Negative) Urine Ketones (Negative) Urine Blood (Negative) Urine Nitrite (Negative) Urine Bilirubin (Negative) Urine Urobilinogen (<2.0) mg/dL Ur Leukocyte Esterase (Negative) Urine RBC (0-5) /hpf Urine WBC (0-5) /hpf Ur Squamous Epith Cells (0-4) /hpf Amorphous Sediment (None) /hpf Urine Bacteria (None) /hpf Hyaline Casts (0-2) /lpf Urine Mucus (None) /hpf Urine Opiates Screen (NotDetected) Ur Oxycodone Screen (NotDetected) Urine Methadone Screen (NotDetected) Ur Propoxyphene Screen (NotDetected) Ur Barbiturates Screen (NotDetected) U Tricyclic Antidepress (NotDetected) Ur Phencyclidine Scrn (NotDetected) Ur Amphetamines Screen (NotDetected) U Methamphetamines Scrn (NotDetected) U Benzodiazepines Scrn (NotDetected) Urine Cocaine Screen (NotDetected) U Marijuana (THC) Screen (NotDetected) Serum Alcohol <10 mg/dL 06/15/20 06/15/20 Range/Units 11:59 12:25 WBC (3.8-10.6) k/uL RBC (3.80-5.40) m/uL Hgb (11.4-16.0) gm/dL Hct (34.0-46.0) % MCV (80.0-100.0) fL MCH (25.0-35.0) pg MCHC (31.0-37.0) g/dL RDW (11.5-15.5) % Plt Count (150-450) k/uL Neutrophils % % Lymphocytes % % Monocytes % % Eosinophils % % Basophils % % Neutrophils # (1.3-7.7) k/uL Lymphocytes # (1.0-4.8) k/uL Monocytes # (0-1.0) k/uL Eosinophils # (0-0.7) k/uL Basophils # (0-0.2) k/uL PT (9.0-12.0) sec INR (<1.2) APTT (22.0-30.0) sec Sodium (137-145) mmol/L Potassium (3.5-5.1) mmol/L Chloride (98-107) mmol/L Carbon Dioxide (22-30) mmol/L Anion Gap mmol/L BUN (7-17) mg/dL Creatinine (0.52-1.04) mg/dL Est GFR (CKD-EPI)AfAm (>60 ml/min/1.73 sqM) Est GFR (CKD-EPI)NonAf (>60 ml/min/1.73 sqM) Glucose (74-99) mg/dL Calcium (8.4-10.2) mg/dL Magnesium (1.6-2.3) mg/dL Total Bilirubin (0.2-1.3) mg/dL AST (14-36) U/L ALT (4-34) U/L Alkaline Phosphatase (38-126) U/L Troponin I <0.012 (0.000-0.034) ng/mL Total Protein (6.3-8.2) g/dL Albumin (3.5-5.0) g/dL Urine Color Yellow Urine Appearance Clear (Clear) Urine pH 7.0 (5.0-8.0) Ur Specific [place] 1.031 (1.001-1.035) Urine Protein Trace H (Negative) Urine Glucose (UA) Negative (Negative) Urine Ketones Negative (Negative) Urine Blood Negative (Negative) Urine Nitrite Positive H (Negative) Urine Bilirubin Negative (Negative) Urine Urobilinogen <2.0 (<2.0) mg/dL Ur Leukocyte Esterase Small H (Negative) Urine RBC 1 (0-5) /hpf Urine WBC 11 H (0-5) /hpf Ur Squamous Epith Cells 1 (0-4) /hpf Amorphous Sediment Rare H (None) /hpf Urine Bacteria Moderate H (None) /hpf Hyaline Casts 1 (0-2) /lpf Urine Mucus Few H (None) /hpf Urine Opiates Screen Not Detected (NotDetected) Ur Oxycodone Screen Not Detected (NotDetected) Urine Methadone Screen Not Detected (NotDetected) Ur Propoxyphene Screen Not Detected (NotDetected) Ur Barbiturates Screen Not Detected (NotDetected) U Tricyclic Antidepress Not Detected (NotDetected) Ur Phencyclidine Scrn Not Detected (NotDetected) Ur Amphetamines Screen Not Detected (NotDetected) U Methamphetamines Scrn Not Detected (NotDetected) U Benzodiazepines Scrn Not Detected (NotDetected) Urine Cocaine Screen Not Detected (NotDetected) U Marijuana (THC) Screen Detected H (NotDetected) Serum Alcohol mg/dL Disposition Clinical Impression: Maxillary fracture, Fall, UTI (urinary tract infection) Disposition: HOME SELF-CARE Condition: Good Instructions (If sedation given, give patient instructions): Fall Prevention for Older Adults (ED), Urinary Tract Infection in Women (ED), Facial Fracture (ED) Additional Instructions: Today you were evaluated for fall. Your diagnosed with facial fracture. Please do not blow your nose vigorously. Follow-up with primary care physician. Seek medical attention with any development of diplopia or worsening facial pain. There is also evidence of urinary tract infection. Please take her medications as prescribed. Medications are sent to preferred pharmacy Prescriptions: Cephalexin [Keflex] 500 mg PO Q6HR 7 Days #28 cap Is patient prescribed a controlled substance at d/c from ED?: No Referrals: Ramila Farr MD [Primary Care Provider] - 1-2 days Time of Disposition: 14:03
[2020-06-15 12:16] LABS: Basophils % (A) 1 %; Eosinophils # (A) 0.1 k/uL (0-0.7); Eosinophils % (A) 1 %; HGB 13.5 gm/dL (11.4-16.0); Lymphocytes # (A) 0.6 k/uL (1.0-4.8); Lymphocytes % (A) 7 %; MCH 31.3 pg (25.0-35.0); MCHC 31.5 g/dL (31.0-37.0); MCV 99.2 fL (80.0-100.0); Mean Platelet Volume 7.8; Monocytes # (A) 0.4 k/uL (0-1.0); Monocytes % (A) 6 %; Neutrophils # (A) 6.6 k/uL (1.3-7.7); Neutrophils % (A) 85 %; Platelet Count 217 k/uL (150-450); RBC 4.33 m/uL (3.80-5.40); RDW 12.3 % (11.5-15.5); WBC 7.7 k/uL (3.8-10.6)
[2020-06-15 12:25] LABS: INR 1.2 (<1.2); Partial Thromboplastin Time 31.2 sec (22.0-30.0); Prothrombin Time 12.6 sec (9.0-12.0)
[2020-06-15 12:48] LABS: Amphetamine Screen,Urine Not Detected (NotDetected); Barbiturate Screen,Urine Not Detected (NotDetected); Benzodiazepines Screen,Urine Not Detected (NotDetected); Cocaine Screen,Urine Not Detected (NotDetected); Methadone Screen, Urine Not Detected (NotDetected); Opiate Screen,Urine Not Detected (NotDetected); Oxycodone Screen, Urine Not Detected (NotDetected); Phencyclidine Screen,Urine Not Detected (NotDetected); Tricyclic Antidepressant,Urine Not Detected (NotDetected); Urn Cannabinoid Scrn Detected (NotDetected)
[2020-06-15 12:55] LABS: Amorphous Sediment,Urine Rare /hpf; Appearance,Urine Clear (Clear); Bacteria,Urine Moderate /hpf; Bilirubin,Urine Negative (Negative); Blood,Urine Negative (Negative); Color,Urine Yellow; Glucose,Urine (UA) Negative (Negative); Hyaline Casts,Urine 1 /lpf (0-2); Ketones,Urine Negative (Negative); Leukocyte Esterase,Urine Small (Negative); Mucus,Urine Few /hpf; Nitrite,Urine Positive (Negative); Protein,Urine Trace (Negative); RBC,Urine 1 /hpf (0-5); Specific Gravity,Urine 1.031 (1.001-1.035); Squamous Epithelial Cell,Urine 1 /hpf (0-4); Urobilinogen,Urine <2.0 mg/dL (<2.0); WBC,Urine 11 /hpf (0-5)
--- NOTE | 2020-06-15 13:00 | CT ---
EXAMINATION TYPE: CT brain roberta wo con DATE OF EXAM: 06/15/2020 COMPARISON: 11/16/2017 HISTORY: 69-year-old female with pain after Fall today. CT DLP: 1019.8 mGycm Automated exposure control for dose reduction was used. Technique: Examination of the head was done in axial plane without intravenous contrast. Coronal and sagittal reconstructions performed. CT of the cervical spine was obtained in axial plane without intravenous injection of contrast mater ial. Coronal and sagittal reformatted images were obtained from the axial views for evaluation of f ractures, spinal alignment and canal. FINDINGS: Head: There is no evidence of acute intracranial hemorrhage, acute ischemic changes, mass, mass-effect, or extra-axial fluid collection. There is no effacement of cerebral sulci or basal subarachnoid cister ns. There is no hydrocephalus. There is no midline shift. Zhao-white matter distinction is preserv ed. Moderate generalized supratentorial volume loss. Patchy white matter hypodensities in both cerebral h emispheres. Mild ventriculomegaly likely secondary to central cerebral atrophy. This is increased sli ghtly from 2018 currently with Pinon ratio of 0.33. Atherosclerotic calcifications within the carotid siphons. No calvarial fracture. Mastoid air cells well pneumatized. Facial bones reported separately. Cervical spine: No craniocervical junction abnormally, predental space widening, or prevertebral soft tissue swelling . Reversal of the normal cervical lordosis with similar trace grade 1 anterolisthesis at C2-C3 and C3-C 4. Moderate to advanced multilevel spondylotic change. No acute fracture of the cervical spine. Disc osteophyte complex at C6/C7 likely contribute to mild narrowing of the spinal canal. Additional variable moderate neuroforaminal stenoses throughout. Emphysematous change in the visualized upper lungs. Biapical pleural parenchymal scarring redemonstra cara. Sagittal and coronal reformatted images confirm above findings. COMBINED IMPRESSION: 1. Moderate generalized atrophy. Some progression in central cerebral atrophy since 2018 resulting in mild ventricular enlargement. Patchy changes of chronic small vessel ischemic disease. No acute intr acranial abnormality seen. 2. No acute fracture of the cervical spine. Grade 1 spondylolisthesis at C2-C3 and C3-C4 are unchange d. 3. Facial bones reported separately.
--- NOTE | 2020-06-15 13:03 | CT ---
EXAMINATION TYPE: CT facial bones wo con DATE OF EXAM: 06/15/2020 COMPARISON: None HISTORY: 69-year-old female with pain after Fall today. TECHNIQUE: Contiguous axial scanning of the facial bones without IV contrast. Coronal reconstructions performed. CT DLP: 1019.8 mGycm Automated exposure control for dose reduction was used. FINDINGS: The mandible and TMJs appear intact. There is some degenerative change of the TMJs. Rightward nasal septal deviation. Nasal bone appears intact. Suspect a subtle nondisplaced fracture along the right orbital floor, refer to coronal image 28. Ther e is associated mucosal thickening and some layering hemorrhage within the right maxillary sinus. Right supraorbital and right temporal scalp contusion and small laceration. Globes appear symmetrical . No additional facial bone fractures seen. Zygomatic arches and pterygoid plates appear intact IMPRESSION: RIGHT SUPRAORBITAL AND RIGHT TEMPORAL SOFT TISSUE CONTUSION AND HEMATOMA. UNDERLYING NONDISPLACED FRA CTURE OF THE RIGHT ORBITAL FLOOR WITH SOME LAYERING HEMORRHAGE IN THE RIGHT MAXILLARY SINUS.
[2020-06-15] MEDS ORDERED: cefTRIAXone IN SWFI 1,000 MG/10 ML SYRINGE IVP STA (13:13)
[2020-06-15 13:17] LABS: ALT 16 U/L (4-34); AST 30 U/L (14-36); African American GFR (CKD) >90 (>60 ml/min/1.73 sqM); Alcohol <10 mg/dL; Alkaline Phosphatase 58 U/L (38-126); Anion Gap 5 mmol/L; Blood Urea Nitrogen 20 mg/dL (7-17); Calcium 9.2 mg/dL (8.4-10.2); Carbon Dioxide 25 mmol/L (22-30); Chloride 110 mmol/L (98-107); Glucose 102 mg/dL (74-99); Non-African American GFR(CKD) 88 (>60 ml/min/1.73 sqM); Potassium 4.4 mmol/L (3.5-5.1); Sodium 140 mmol/L (137-145); Total Bilirubin 0.8 mg/dL (0.2-1.3); Total Protein 6.1 g/dL (6.3-8.2)
--- NOTE | 2020-06-15 13:19 | XR ---
EXAMINATION TYPE: XR chest 1V portable DATE OF EXAM: 06/15/2020 COMPARISON: NONE HISTORY: Pain TECHNIQUE: Single frontal view of the chest is obtained. FINDINGS: Arthropathy of the shoulders with diffuse osteopenia. No pneumothorax. No consolidation or pleural effusion. Heart size is normal. Diffuse osteopenia. IMPRESSION: COPD
--- NOTE | 2020-06-15 13:20 | XR ---
EXAMINATION TYPE: XR pelvis AP view DATE OF EXAM: 06/15/2020 COMPARISON: NONE HISTORY: Pain The osseous structures are intact and the joint spaces are preserved. No acute fracture is seen. Vi sualized bowel gas pattern is nonspecific. Arthropathy of the hips. Vascular calcifications noted. D egenerative change lower lumbar spine. IMPRESSION: 1. No acute fracture.
[2020-06-15] MEDS ORDERED: DIPH,PERTUS(ACELL)TETVAC-LF 0.5 ML VIAL IM ONE (13:59)
[2020-06-15 14:12] VITALS: BP 130/71; PULSE 78
== END 2020-06-15 14:20 | disposition home or self-care (01) ==
LOC: EC 11:30
DX: S02.40CA Maxillary fracture, right side, initial encounter for closed fracture (principal); N39.0 Urinary tract infection, site not specified; G31.9 Degenerative disease of nervous system, unspecified; Z23 Encounter for immunization; F03.90 Unspecified dementia, unspecified severity, without behavioral disturbance, psychotic disturbance, mood disturbance, and anxiety; F17.200 Nicotine dependence, unspecified, uncomplicated; Z79.899 Other long term (current) drug therapy; Z88.0 Allergy status to penicillin; Z91.041 Radiographic dye allergy status; W01.10XA Fall on same level from slipping, tripping and stumbling with subsequent striking against unspecified object, initial encounter; Y92.009 Unspecified place in unspecified non-institutional (private) residence as the place of occurrence of the external cause
CPT/HCPCS: 36415; 93005; 80053; 83735; 84484; 85025; 85610; 85730; 81001; 80306; 87086; 72170; 71045; 72125; 70486; 70450; 90715; 99284; 96374; 90471; G0480; J0696; 80320

== ENCOUNTER 2021-04-25 02:10 | Emergency (ER) | payer MEDICARE, OTHER ==
--- NOTE | 2021-04-25 02:23 | ED ---
Fall HPI - General Stated Complaint: Fall Time Seen by Provider: 04/25/21 02:14 Source: RN notes reviewed, old records reviewed Mode of arrival: ambulatory Limitations: no limitations - History of Present Illness Initial Comments: This is a 70-year-old female to the ER for evaluation patient presents today for evaluation regards to fall. Patient has history of dementia unable to give history, but is complaining of shoulder pain. 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 Fall Witnessed: no Place Fall Occurred: home Loss of Consciousness: none Prolonged Down Time?: no Symptoms Prior to Fall: none Location - Extremities: Left: Shoulder Severity: moderate Severity scale (1-10): 4 Quality: burning Context: tripped/slipped Associated Symptoms: denies - Related Data Home Medications Medication Instructions Recorded Confirmed Donepezil HCl [Aricept] 10 mg PO DAILY 11/23/19 11/28/19 Rivaroxaban [Xarelto] 20 mg PO DAILY 11/23/19 11/28/19 Sennosides/Docusate Sodium 1 tab PO DAILY 11/23/19 11/28/19 [Senna-S Laxative Tablet] Simvastatin [Zocor] 20 mg PO HS 11/23/19 11/28/19 levETIRAcetam [Keppra] 750 mg PO Q12H 11/23/19 11/28/19 Aspirin EC [Ecotrin Low Dose] 81 mg PO DAILY 11/28/19 11/28/19 Gabapentin [Neurontin] 300 mg PO TID 11/28/19 11/28/19 HYDROcodone/APAP 10-325MG [[place] 1 tab PO QID 11/28/19 11/28/19 10-325] lisinopriL [Zestril] 10 mg PO DAILY 11/28/19 11/28/19 Previous Rx's Medication Instructions Recorded Albuterol Nebulized [Ventolin 2.5 mg INHALATION Q4H #25 nebu 01/25/20 Nebulized] Cephalexin [Keflex] 500 mg PO Q6HR 7 Days #28 cap 06/15/20 Allergies Allergy/AdvReac Type Severity Reaction Status Date / Time Iodinated Contrast Media Allergy Rash/Hives Verified 06/15/20 11:36 [Iodinated Contrast- Oral and IV Dye] Penicillins Allergy Rash/Hives Verified 06/15/20 11:36 Review of Systems ROS Statement: Those systems with pertinent positive or pertinent negative responses have been documented in the HPI. ROS Other: All systems not noted in ROS Statement are negative. Past Medical History Past Medical History: Dementia, Hyperlipidemia Additional Past Medical History / Comment(s): chronic back pain, RA, vascular problems. History of Any Multi-Drug Resistant Organisms: None Reported Past Surgical History: Section, Cholecystectomy, Hernia Repair, Orthopedic Surgery Additional Past Surgical History / Comment(s): left leg artery occluded/fixed 1 and a half years ago Past Anesthesia/Blood Transfusion Reactions: No Reported Reaction Past Psychological History: No Psychological Hx Reported Smoking Status: Current every day smoker Past Alcohol Use History: Occasional Past Drug Use History: Marijuana - Past Family History Mother Family Medical History: Cancer Additional Family Medical History / Comment(s): breast cancer Father Family Medical History: Myocardial Infarction ([place]) Sister(s) Family Medical History: Cancer Brother(s) Additional Family Medical History / Comment(s): for unknown reason Son(s) Family Medical History: Coronary Artery Disease (CAD), Hyperlipidemia, Hypertension Additional Family Medical History / Comment(s): arthritis, pituitary tumor, depression, anxiety, ankalosing spondilitis Daughter(s) Family Medical History: Cancer Additional Family Medical History / Comment(s): pancreatic General Exam General appearance: alert, in no apparent distress Head exam: Present: atraumatic, normocephalic, normal inspection Eye exam: Present: normal appearance, PERRL, EOMI. Absent: scleral icterus, conjunctival injection, periorbital swelling ENT exam: Present: normal exam, mucous membranes moist Neck exam: Present: normal inspection. Absent: tenderness, meningismus, lymphadenopathy Respiratory exam: Present: normal lung sounds bilaterally. Absent: respiratory distress, wheezes, rales, rhonchi, stridor Cardiovascular Exam: Present: regular rate, normal rhythm, normal heart sounds. Absent: systolic murmur, diastolic murmur, rubs, gallop, clicks GI/Abdominal exam: Present: soft, normal bowel sounds. Absent: distended, tenderness, guarding, rebound, rigid Extremities exam: Present: normal inspection, full ROM, normal capillary refill. Absent: tenderness, pedal edema, joint swelling, calf tenderness Back exam: Present: normal inspection Neurological exam: Present: alert, oriented X3, CN II-XII intact Psychiatric exam: Present: normal affect, normal mood Skin exam: Present: warm, dry, intact, normal color. Absent: rash Course Vital Signs 04/25/21 02:23 Temperature 98 F Pulse Rate 78 Respiratory 18 Rate Blood Pressure 187/88 O2 Sat by Pulse 98 Oximetry - Reevaluation(s) Reevaluation #1: Medical record is reviewed Patient no significant acute distress Patient symptoms improved here in the ER Patient informed of results and questions answered Medical Decision Making - Medical Decision Making 70 female DF for evaluation with history of dementia coming in for a fall patient has x-rays done here there was negative and can be discharged home - Radiology Data Radiology results: report reviewed (Chest and shoulder x-ray are negative for acute disease), image reviewed Disposition Clinical Impression: Fall Disposition: HOME SELF-CARE Condition: Good Instructions (If sedation given, give patient instructions): Fall Prevention for Older Adults (ED) Is patient prescribed a controlled substance at d/c from ED?: No Referrals: Domingo Pendleton MD [Primary Care Provider] - 1-2 days
[2021-04-25 02:29] VITALS: BP 187/88; PULSE 78; RESP 18; TEMP 98
--- NOTE | 2021-04-25 02:59 | XR ---
EXAMINATION TYPE: XR chest 1V DATE OF EXAM: 04/25/2021 COMPARISON: 06/15/2020 HISTORY: Fall. Pain. TECHNIQUE: Single view FINDINGS: There is no heart failure nor confluent pneumonic infiltrate. There is some pleural and pul monary scarring at the lung apices. There are no hilar masses. Thoracic aorta is atheromatous. There is no pleural effusion. IMPRESSION: Upper lobe pleural and pulmonary scarring. No acute lung disease. No significant change c ompared to old exam.
--- NOTE | 2021-04-25 03:00 | XR ---
EXAMINATION TYPE: XR shoulder complete LT DATE OF EXAM: 04/25/2021 COMPARISON: NONE HISTORY: Fall. Pain. TECHNIQUE: 3 views FINDINGS: I see no fracture nor dislocation. Glenohumeral joint is intact. There are no pathologic ca lcifications. IMPRESSION: Negative left shoulder exam.
== END 2021-04-25 03:52 | disposition home or self-care (01) ==
LOC: EC 02:10
DX: M25.512 Pain in left shoulder (principal); E78.5 Hyperlipidemia, unspecified; F17.200 Nicotine dependence, unspecified, uncomplicated; Z79.899 Other long term (current) drug therapy; Z88.0 Allergy status to penicillin; Z91.041 Radiographic dye allergy status; W01.0XXA Fall on same level from slipping, tripping and stumbling without subsequent striking against object, initial encounter; Y92.009 Unspecified place in unspecified non-institutional (private) residence as the place of occurrence of the external cause
CPT/HCPCS: 71045; 99283

== ENCOUNTER 2021-06-30 12:49 | Emergency (ER) | payer MEDICARE, OTHER ==
[2021-06-30 13:08] VITALS: RESP 16
--- NOTE | 2021-06-30 13:20 | ED ---
General Adult HPI - General Chief complaint: Fall Stated complaint: fall Time Seen by Provider: 06/30/21 13:02 Source: patient, EMS, RN notes reviewed, old records reviewed Mode of arrival: EMS Limitations: altered mental status - History of Present Illness Initial comments: Patient is a pleasantly demented 70-year-old female presenting to the emergency department following a fall in the bathroom. Patient believes she did strike her head. Patient states he only has mild discomfort. No reported loss of consciousness. Staff did hear the fall and saw patient right following this and patient was alert. No neck or back pain. No chest pain or dyspnea. No extremity pain. Patient is on Xarelto. - Related Data Home Medications Medication Instructions Recorded Confirmed Donepezil HCl [Aricept] 10 mg PO DAILY 11/23/19 11/28/19 Rivaroxaban [Xarelto] 20 mg PO DAILY 11/23/19 11/28/19 Sennosides/Docusate Sodium 1 tab PO DAILY 11/23/19 11/28/19 [Senna-S Laxative Tablet] Simvastatin [Zocor] 20 mg PO HS 11/23/19 11/28/19 levETIRAcetam [Keppra] 750 mg PO Q12H 11/23/19 11/28/19 Aspirin EC [Ecotrin Low Dose] 81 mg PO DAILY 11/28/19 11/28/19 Gabapentin [Neurontin] 300 mg PO TID 11/28/19 11/28/19 HYDROcodone/APAP 10-325MG [[place] 1 tab PO QID 11/28/19 11/28/19 10-325] lisinopriL [Zestril] 10 mg PO DAILY 11/28/19 11/28/19 Previous Rx's Medication Instructions Recorded Albuterol Nebulized [Ventolin 2.5 mg INHALATION Q4H #25 nebu 01/25/20 Nebulized] Cephalexin [Keflex] 500 mg PO Q6HR 7 Days #28 cap 06/15/20 Allergies Allergy/AdvReac Type Severity Reaction Status Date / Time Iodinated Contrast Media Allergy Rash/Hives Verified 06/15/20 11:36 [Iodinated Contrast- Oral and IV Dye] Penicillins Allergy Rash/Hives Verified 06/15/20 11:36 Review of Systems ROS Statement: Those systems with pertinent positive or pertinent negative responses have been documented in the HPI. ROS Other: All systems not noted in ROS Statement are negative. Constitutional: Denies: fever Eyes: Denies: eye pain ENT: Denies: ear pain Respiratory: Denies: cough, dyspnea Cardiovascular: Denies: chest pain Endocrine: Denies: fatigue Gastrointestinal: Denies: abdominal pain Genitourinary: Denies: dysuria Musculoskeletal: Denies: back pain Skin: Denies: rash Neurological: Denies: weakness Past Medical History Past Medical History: Dementia, Hyperlipidemia Additional Past Medical History / Comment(s): chronic back pain, RA, vascular problems. History of Any Multi-Drug Resistant Organisms: None Reported Past Surgical History: Section, Cholecystectomy, Hernia Repair, Orthopedic Surgery Additional Past Surgical History / Comment(s): left leg artery occluded/fixed 1 and a half years ago Past Anesthesia/Blood Transfusion Reactions: No Reported Reaction Past Psychological History: No Psychological Hx Reported Smoking Status: Former smoker Past Alcohol Use History: Occasional Past Drug Use History: Marijuana - Past Family History Mother Family Medical History: Cancer Additional Family Medical History / Comment(s): breast cancer Father Family Medical History: Myocardial Infarction ([place]) Sister(s) Family Medical History: Cancer Brother(s) Additional Family Medical History / Comment(s): for unknown reason Son(s) Family Medical History: Coronary Artery Disease (CAD), Hyperlipidemia, Hypertension Additional Family Medical History / Comment(s): arthritis, pituitary tumor, depression, anxiety, ankalosing spondilitis Daughter(s) Family Medical History: Cancer Additional Family Medical History / Comment(s): pancreatic General Exam Limitations: altered mental status General appearance: alert, in no apparent distress Head exam: Present: atraumatic, normocephalic Eye exam: Present: normal appearance, PERRL, EOMI ENT exam: Present: normal oropharynx Neck exam: Present: normal inspection. Absent: tenderness Respiratory exam: Present: normal lung sounds bilaterally Cardiovascular Exam: Present: regular rate, normal rhythm GI/Abdominal exam: Present: soft. Absent: tenderness Extremities exam: Present: normal inspection, full ROM. Absent: tenderness Neurological exam: Present: alert. Absent: motor sensory deficit Expanded Neurological exam: Present: protecting the airway Patient oriented to: Present: person. Absent: place, time Speech: Present: fluid speech Cranial nerves: EOM's Intact: Normal Sensory exam: Upper Extremity Light Touch: Normal, Lower Extremity Light Touch: Normal Motor strength exam: RUE: 5, LUE: 5, RLE: 5, LLE: 5 Eye Response: (4) open spontaneously Motor Response: (6) obeys commands Verbal Response: (4) confused conversation Psychiatric exam: Present: normal affect, normal mood Skin exam: Present: normal color Course Vital Signs 06/30/21 12:50 Temperature 97.7 F Pulse Rate 65 Respiratory 16 Rate Blood Pressure 142/69 O2 Sat by Pulse 96 Oximetry Medical Decision Making - Medical Decision Making Patient reevaluated and resting comfortably in bed. No complaints. Patient requesting discharge. - Radiology Data Radiology results: report reviewed (Computed tomography scan cervical spine shows no fracture or dislocation. There is aortic stenosis, emphysema. No acute intercranial hemorrhage On head CT.) Disposition Clinical Impression: Fall Disposition: HOME SELF-CARE Condition: Stable Instructions (If sedation given, give patient instructions): Fall Prevention for Older Adults (ED) Additional Instructions: Please do follow-up with primary care physician in the next couple days for recheck. Return for change in mental status, weakness, persistent falls, worsening symptoms or other concerns. Hold Xarelto for 24 hours. Is patient prescribed a controlled substance at d/c from ED?: No Referrals: Domingo Pendleton MD [Primary Care Provider] - 1-2 days Time of Disposition: 14:18
--- NOTE | 2021-06-30 14:09 | CT ---
EXAMINATION TYPE: CT brain cspine wo con DATE OF EXAM: 06/30/2021 COMPARISON: CT 06/15/2020 HISTORY: fall CT DLP: 1295.8 mGycm Automated exposure control for dose reduction was used. TECHNIQUE: CT scan of the head and cervical spine are performed without contrast. FINDINGS: There is no acute intracranial hemorrhage, mass effect, or midline shift identified. The ventricles and sulci are within normal limits in size. The globes are intact and the visualized sin uses are clear. Cortical atrophy, periventricular white matter low-attenuation is again noted. Cervical spine is visualized in its entirety from C1 through upper thoracic levels and demonstrates s atisfactory alignment without evidence of acute fracture or dislocation. Degenerative disc changes D egenerative disc changes, multilevel foraminal encroachment again noted, there is facet arthropathy. Prevertebral soft tissue appears within normal limits. The C1-C2 articulation is unremarkable. Ther e is biapical pleural thickening with associated calcification. Emphysematous changes are present in the bilateral lungs. Proximal descending aorta measures 3.1 cm. There is a spinal curvature. IMPRESSION: 1. There is no acute fracture or dislocation evident in the cervical spine. 2. No acute intracranial hemorrhage, mass effect, or midline shift is seen. 3. There is aortic ectasia, emphysema
[2021-06-30 15:22] VITALS: BP 136/77; PULSE 69; TEMP 97.8
== END 2021-06-30 15:16 | disposition home or self-care (01) ==
LOC: EC 12:49
DX: Z04.3 Encounter for examination and observation following other accident (principal); R41.82 Altered mental status, unspecified; E78.5 Hyperlipidemia, unspecified; F03.90 Unspecified dementia, unspecified severity, without behavioral disturbance, psychotic disturbance, mood disturbance, and anxiety; Z88.0 Allergy status to penicillin; Z88.8 Allergy status to other drugs, medicaments and biological substances; Z87.891 Personal history of nicotine dependence; Z79.899 Other long term (current) drug therapy; Z79.82 Long term (current) use of aspirin; W19.XXXA Unspecified fall, initial encounter; Y92.091 Bathroom in other non-institutional residence as the place of occurrence of the external cause
CPT/HCPCS: 70450; 72125; 99284

== ENCOUNTER 2021-08-20 18:48 | Emergency (ER) | payer MEDICARE, OTHER ==
[2021-08-20 19:04] VITALS: BP 190/85; PULSE 75; RESP 18; TEMP 98.6
--- NOTE | 2021-08-20 20:08 | ED ---
General Adult HPI - General Chief complaint: Fall Stated complaint: Fall injury Time Seen by Provider: 08/20/21 19:48 Source: EMS, RN notes reviewed Mode of arrival: EMS Limitations: altered mental status - History of Present Illness Initial comments: 71-year-old female with a past medical history of hyperlipidemia, hypertension, dementia presents to the emergency room for a chief complaint of head injury. Patient currently lives in a snf. Apparently she was running down the halls tripped and hit her head. No loss of consciousness. Patient does take Xarelto. Patient is denying any pain at this time. Patient refusing to a c- collar on, continuously taking it off. Patient has no other complaints at this time including shortness of breath, chest pain, abdominal pain, nausea or vomiting, headache, or visual changes. - Related Data Home Medications Medication Instructions Recorded Confirmed Rivaroxaban [Xarelto] 20 mg PO HS 11/23/19 06/30/21 Acetaminophen [Tylenol Arthritis] 650 mg PO Q6H PRN 06/30/21 06/30/21 Albuterol Sulfate [Proventil Hfa] 2 puff INHALATION RT-BID 06/30/21 06/30/21 Albuterol Sulfate [Proventil Hfa] 2 puff INHALATION RT-Q8H PRN 06/30/21 06/30/21 Budesonide [Pulmicort Flexhaler] 2 puff INHALATION RT-BID 06/30/21 06/30/21 FLUoxetine HCL [PROzac] 20 mg PO DAILY@0700 06/30/21 06/30/21 Magnesium Hydroxide [Milk of 2,400 mg PO DAILY PRN 06/30/21 06/30/21 Magnesia] Memantine [Namenda] 5 mg PO BID 06/30/21 06/30/21 Pantoprazole Sodium [Protonix] 40 mg PO DAILY 06/30/21 06/30/21 amLODIPine [Norvasc] 5 mg PO HS@199906/30/21 06/30/21 levETIRAcetam [Keppra] 500 mg PO BID@0700,1900 06/30/21 06/30/21 Allergies Allergy/AdvReac Type Severity Reaction Status Date / Time Iodinated Contrast Media Allergy Rash/Hives Verified 06/30/21 14:19 [Iodinated Contrast- Oral and IV Dye] Penicillins Allergy Rash/Hives Verified 06/30/21 14:19 Review of Systems ROS Statement: Those systems with pertinent positive or pertinent negative responses have been documented in the HPI. ROS Other: All systems not noted in ROS Statement are negative. Past Medical History Past Medical History: Dementia, Hyperlipidemia, Hypertension Additional Past Medical History / Comment(s): chronic back pain, RA, vascular problems. History of Any Multi-Drug Resistant Organisms: None Reported Past Surgical History: Section, Cholecystectomy, Hernia Repair, Orthopedic Surgery Additional Past Surgical History / Comment(s): left leg artery occluded/fixed 1 and a half years ago Past Anesthesia/Blood Transfusion Reactions: No Reported Reaction Past Psychological History: No Psychological Hx Reported Smoking Status: Former smoker Past Alcohol Use History: Occasional Past Drug Use History: Marijuana - Past Family History Mother Family Medical History: Cancer Additional Family Medical History / Comment(s): breast cancer Father Family Medical History: Myocardial Infarction ([place]) Sister(s) Family Medical History: Cancer Brother(s) Additional Family Medical History / Comment(s): for unknown reason Son(s) Family Medical History: Coronary Artery Disease (CAD), Hyperlipidemia, Hypertension Additional Family Medical History / Comment(s): arthritis, pituitary tumor, depression, anxiety, ankalosing spondilitis Daughter(s) Family Medical History: Cancer Additional Family Medical History / Comment(s): pancreatic General Exam - General Exam Comments Initial Comments: Pleasant, alert and oriented 2 which is patient's baseline. Speaking without difficulty Limitations: altered mental status General appearance: alert, in no apparent distress Head exam: Present: atraumatic Eye exam: Present: normal appearance, PERRL, EOMI. Absent: scleral icterus, conjunctival injection ENT exam: Present: normal exam, mucous membranes moist Neck exam: Present: tenderness (Left-sided paraspinal tenderness. No cervical spine tenderness.), other (She is refusing to wear c-collar.) Respiratory exam: Present: normal lung sounds bilaterally. Absent: respiratory distress, wheezes Cardiovascular Exam: Present: regular rate, normal rhythm, normal heart sounds GI/Abdominal exam: Present: soft, normal bowel sounds. Absent: distended, tenderness Course Vital Signs 08/20/21 18:55 Temperature 98.6 F Pulse Rate 75 Respiratory 18 Rate Blood Pressure 190/85 O2 Sat by Pulse 94 L Oximetry Medical Decision Making - Medical Decision Making CT cervical spine shows no fracture or dislocation. CT brain shows no acute intracranial hemorrhage or mass effect or midline shift. There are chronic biapical pleural nodular thickening that are unchanged. Patient can follow up with for this. Patient will be discharged home to follow up with primary care. Will return here for any worsening symptoms. Disposition Clinical Impression: Head injury, Pleural nodule Disposition: HOME SELF-CARE Condition: Good Instructions (If sedation given, give patient instructions): Head Injury (ED) Additional Instructions: Please follow up with primary care. Return to the emergency room for any worsening symptoms. Is patient prescribed a controlled substance at d/c from ED?: No Referrals: Domingo Pendleton MD [Primary Care Provider] - 1-2 days Time of Disposition: 21:14
--- NOTE | 2021-08-20 21:03 | CT ---
EXAMINATION TYPE: CT brain cspine wo con DATE OF EXAM: 08/20/2021 COMPARISON: 06/22/2021 HISTORY: Head and neck pain status post fall. CT DLP: 1276.1 mGycm Automated exposure control for dose reduction was used. TECHNIQUE: CT scan of the head and cervical spine are performed without contrast. FINDINGS: There is no acute intracranial hemorrhage, mass effect, or midline shift identified. The re is moderate white matter disease and parenchymal volume loss. The ventricles and sulci are within normal limits in size. The globes are intact and the visualized sinuses are clear. There is unchange d 3 mm right upper lobe nodule. Cervical spine is visualized in its entirety from C1 through upper thoracic levels and demonstrates s atisfactory alignment without evidence of acute fracture or dislocation. Prevertebral soft tissue ap pears within normal limits. The C1-C2 articulation is unremarkable. There is multilevel moderate cer vical spondylosis most notable at C5-C7.Limited visualization of the upper lungs demonstrate mild to moderate biapical nodular pleural thickening. Also moderate emphysematous changes seen. IMPRESSION: 1. There is no acute fracture or dislocation evident in the cervical spine. 2. No acute intracranial hemorrhage, mass effect, or midline shift is seen. 3. Cervical spine degenerative changes without acute osseous abnormality. 4. Chronic biapical pleural nodular thickening and unchanged 3 mm right upper lobe nodule.
== END 2021-08-20 22:20 | disposition home or self-care (01) ==
LOC: EC 18:48
DX: S09.90XA Unspecified injury of head, initial encounter (principal); J94.9 Pleural condition, unspecified; I10 Essential (primary) hypertension; Z79.899 Other long term (current) drug therapy; Z88.0 Allergy status to penicillin; Z88.8 Allergy status to other drugs, medicaments and biological substances; Z87.891 Personal history of nicotine dependence; W01.198A Fall on same level from slipping, tripping and stumbling with subsequent striking against other object, initial encounter; Y92.009 Unspecified place in unspecified non-institutional (private) residence as the place of occurrence of the external cause; Y93.02 Activity, running
CPT/HCPCS: 70450; 72125; 99284

== ENCOUNTER 2021-10-07 00:19 | Emergency (ER) | payer MEDICARE, OTHER ==
--- NOTE | 2021-10-07 00:44 | ED ---
Fall HPI - General Chief Complaint: Fall Stated Complaint: Fall, head injury Time Seen by Provider: 10/07/21 00:23 Source: EMS, RN notes reviewed, old records reviewed Mode of arrival: EMS - History of Present Illness Initial Comments: This is a 71-year-old female to the emergency or sick. Patient presents today for evaluation regards to fall fall without injury. Patient is at baseline per EMS and patient's chart patient's poor historian secondary to dementia. Denying any complaints. 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[employer] Fall Witnessed: yes, by living facility staff Place Fall Occurred: half-way/SNF Loss of Consciousness: none Prolonged Down Time?: no Symptoms Prior to Fall: none Location: head, face Severity: moderate Severity scale (1-10): 4 Quality: burning Context: tripped/slipped Associated Symptoms: denies - Related Data Home Medications Medication Instructions Recorded Confirmed Rivaroxaban [Xarelto] 20 mg PO HS 11/23/19 06/30/21 Acetaminophen [Tylenol Arthritis] 650 mg PO Q6H PRN 06/30/21 06/30/21 Albuterol Sulfate [Proventil Hfa] 2 puff INHALATION RT-BID 06/30/21 06/30/21 Albuterol Sulfate [Proventil Hfa] 2 puff INHALATION RT-Q8H PRN 06/30/21 06/30/21 Budesonide [Pulmicort Flexhaler] 2 puff INHALATION RT-BID 06/30/21 06/30/21 FLUoxetine HCL [PROzac] 20 mg PO DAILY@0700 06/30/21 06/30/21 Magnesium Hydroxide [Milk of 2,400 mg PO DAILY PRN 06/30/21 06/30/21 Magnesia] Memantine [Namenda] 5 mg PO BID 06/30/21 06/30/21 Pantoprazole Sodium [Protonix] 40 mg PO DAILY 06/30/21 06/30/21 amLODIPine [Norvasc] 5 mg PO HS@199906/30/21 06/30/21 levETIRAcetam [Keppra] 500 mg PO BID@0700,1900 06/30/21 06/30/21 Allergies Allergy/AdvReac Type Severity Reaction Status Date / Time Iodinated Contrast Media Allergy Rash/Hives Verified 06/30/21 14:19 [Iodinated Contrast- Oral and IV Dye] Penicillins Allergy Rash/Hives Verified 06/30/21 14:19 Review of Systems ROS Statement: Those systems with pertinent positive or pertinent negative responses have been documented in the HPI. ROS Other: All systems not noted in ROS Statement are negative. Past Medical History Past Medical History: Dementia, Hyperlipidemia, Hypertension Additional Past Medical History / Comment(s): chronic back pain, RA, vascular problems. History of Any Multi-Drug Resistant Organisms: None Reported Past Surgical History: Section, Cholecystectomy, Hernia Repair, Orthopedic Surgery Additional Past Surgical History / Comment(s): left leg artery occluded/fixed 1 and a half years ago Past Anesthesia/Blood Transfusion Reactions: No Reported Reaction Past Psychological History: No Psychological Hx Reported Smoking Status: Former smoker Past Alcohol Use History: Occasional Past Drug Use History: Marijuana - Past Family History Mother Family Medical History: Cancer Additional Family Medical History / Comment(s): breast cancer Father Family Medical History: Myocardial Infarction (PR) Sister(s) Family Medical History: Cancer Brother(s) Additional Family Medical History / Comment(s): for unknown reason Son(s) Family Medical History: Coronary Artery Disease (CAD), Hyperlipidemia, Hypertension Additional Family Medical History / Comment(s): arthritis, pituitary tumor, depression, anxiety, ankalosing spondilitis Daughter(s) Family Medical History: Cancer Additional Family Medical History / Comment(s): pancreatic General Exam Limitations: altered mental status, physical limitation General appearance: alert, in no apparent distress Head exam: Present: atraumatic, normocephalic, normal inspection Eye exam: Present: normal appearance, PERRL, EOMI. Absent: scleral icterus, conjunctival injection, periorbital swelling ENT exam: Present: normal exam, mucous membranes moist Neck exam: Present: normal inspection. Absent: tenderness, meningismus, lymphadenopathy Respiratory exam: Present: normal lung sounds bilaterally. Absent: respiratory distress, wheezes, rales, rhonchi, stridor Cardiovascular Exam: Present: regular rate, normal rhythm, normal heart sounds. Absent: systolic murmur, diastolic murmur, rubs, gallop, clicks GI/Abdominal exam: Present: soft, normal bowel sounds. Absent: distended, tenderness, guarding, rebound, rigid Extremities exam: Present: normal inspection, full ROM, normal capillary refill. Absent: tenderness, pedal edema, joint swelling, calf tenderness Back exam: Present: normal inspection Neurological exam: Present: alert, oriented X3, CN II-XII intact Psychiatric exam: Present: normal affect, normal mood Skin exam: Present: warm, dry, intact, normal color. Absent: rash Course Vital Signs 10/07/21 00:22 Temperature 98.0 F Pulse Rate 75 Respiratory 18 Rate Blood Pressure 127/61 O2 Sat by Pulse 95 Oximetry - Reevaluation(s) Reevaluation #1: 10/07/21 01:54 Record is reviewed Reevaluation #2: 10/07/21 01:54 Patient's has no symptoms throughout ER stay Reevaluation #3: 10/07/21 01:54 informed results and questions are answered Medical Decision Making - Medical Decision Making 71 female to the emergency department for evaluation of fall. Severe dementia at baseline. Patient will be discharged back to facility - Radiology Data Radiology results: report reviewed (CT brain C-spine negative for significant acute disease), image reviewed Disposition Clinical Impression: Fall, Head injury Disposition: HOME SELF-CARE Instructions (If sedation given, give patient instructions): Fall Prevention for Older Adults (ED) Is patient prescribed a controlled substance at d/c from ED?: No Referrals: Domingo Pendleton MD [Primary Care Provider] - 1-2 days
--- NOTE | 2021-10-07 02:19 | CT ---
EXAMINATION TYPE: CT brain roberta wo con DATE OF EXAM: 10/07/2021 COMPARISON: 08/20/2021 HISTORY: fall CT DLP: 1257.9 mGycm Automated exposure control for dose reduction was used. Images obtained of the brain without contrast. There is cerebral cortical atrophy. There is no mass effect nor midline shift. There is no sign of in tracranial hemorrhage. Calvarium is intact. There is normal aeration of the mastoid sinuses. There is hypodensity in the periventricular white matter. Cervical vertebra show some straightening. There is degenerative disc space narrowing throughout the cervical spine. There is no compression fracture. There is mild hypertrophic multilevel facet arthrop athy. Prevertebral soft tissues are intact. IMPRESSION: Multilevel cervical spondylotic changes. No fracture. No change. Moderate cerebral atrophy. No acute intracranial abnormality. Chronic small vessel ischemia. No sinclair e.
[2021-10-07 05:53] VITALS: RESP 18
--- NOTE | 2021-10-07 06:16 | CT ---
EXAMINATION TYPE: CT brain roberta singh DATE OF EXAM: 10/07/2021 COMPARISON: Today HISTORY: fall CT DLP: 1254.9 mGycm Automated exposure control for dose reduction was used. Images obtained of the brain and cervical spine without contrast. There is cerebral cortical atrophy. There is hypodensity in the periventricular white matter. There i s no mass effect nor midline shift. There is no sign of intracranial hemorrhage. Calvarium is intact. There is normal aeration of the mastoid sinuses. Cervical vertebra show some mild straightening. There is degenerative disc space narrowing at C5-6 an d C6-7 with spurring of the endplates. There is no compression fracture. IMPRESSION: Cerebral atrophy and chronic small vessel ischemia. No change. Spondylotic changes in the cervical spine. No fracture. No change.
[2021-10-07 06:56] VITALS: BP 141/71; PULSE 76; TEMP 97.3
== END 2021-10-07 07:31 | disposition home or self-care (01) ==
LOC: EC 00:19
DX: S09.90XA Unspecified injury of head, initial encounter (principal); I10 Essential (primary) hypertension; Z88.0 Allergy status to penicillin; Z88.8 Allergy status to other drugs, medicaments and biological substances; Z79.899 Other long term (current) drug therapy; Z87.891 Personal history of nicotine dependence; W01.0XXA Fall on same level from slipping, tripping and stumbling without subsequent striking against object, initial encounter; Y92.129 Unspecified place in nursing home as the place of occurrence of the external cause
CPT/HCPCS: 70450; 72125; 99284